=== PATIENT | female | born 2000 | race Caucasian/White ===

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

== ENCOUNTER 2019-02-05 10:16 | Emergency (ER) | payer OTHER ==
[2019-02-05 10:20] VITALS: RESP 16; TEMP 98.8
--- NOTE | 2019-02-05 10:49 | ED ---
Dizziness HPI - General Chief Complaint: Syncope Stated Complaint: Syncope, Anxiety Time Seen by Provider: 02/05/19 10:19 Source: patient, EMS, RN notes reviewed Mode of arrival: EMS Limitations: no limitations - History of Present Illness Initial Comments: This is 18-year-old female with a history of seizures as well and a fear of needles who apparently has carpal tunnel syndrome in the left wrist and was about getting an injection which she requested when she suddenly became pale unresponsive and almost passed out. She was evaluated by paramedics she has sinus rhythm on the monitor glucose 118 no focal deficits noted no tremors no shaking. His slow responsiveness. Due to the patient's fear of needles no IV was started. The modifying factors this time MD Complaint: dizziness, lightheadedness, near syncope - Related Data Home Medications Medication Instructions Recorded Confirmed Naproxen 500 mg PO BID PRN 05/20/18 02/05/19 Omeprazole 20 mg PO DAILY 05/20/18 02/05/19 Loratadine [Claritin] 10 mg PO DAILY 09/11/18 02/05/19 Medroxyprogesterone Acetate 150 mg IM Q84D 09/11/18 02/05/19 [Depo-Provera] ALPRAZolam [Xanax] 0.125 - 0.25 mg PO DAILY PRN 02/05/19 02/05/19 Cholecalciferol [Vitamin D3 (25 5,000 unit PO DAILY 02/05/19 02/05/19 Mcg = 1000 Iu)] Levothyroxine Sodium [Synthroid] 25 mcg PO DAILY 02/05/19 02/05/19 Multivitamins, Thera [Multivitamin 1 tab PO DAILY 02/05/19 02/05/19 (formulary)] cloNIDine HCL [Catapres] 0.1 mg PO DAILY 02/05/19 02/05/19 metFORMIN HCL [Glucophage] 500 mg PO BID 02/05/19 02/05/19 Allergies Allergy/AdvReac Type Severity Reaction Status Date / Time cyclobenzaprine Allergy Unknown Anaphylaxis Verified 02/05/19 10:31 [From Flexeril] amphetamine aspartate Allergy Rash/Hives Verified 02/05/19 10:31 [From Adderall] amphetamine sulfate Allergy Rash/Hives Verified 02/05/19 10:31 [From Adderall] dextroamphetamine saccharate Allergy Rash/Hives Verified 02/05/19 10:31 [From Adderall] dextroamphetamine sulfate Allergy Rash/Hives Verified 02/05/19 10:31 [From Adderall] methylphenidate HCl Allergy Rash/Hives Verified 02/05/19 10:31 [From Concerta] Poultry [[place]] Allergy Rash/Hives Verified 02/05/19 10:31 Review of Systems ROS Statement: Those systems with pertinent positive or pertinent negative responses have been documented in the HPI. ROS Other: All systems not noted in ROS Statement are negative. Past Medical History Past Medical History: Asthma, Seizure Disorder Additional Past Medical History / Comment(s): shoulder crepitus, asthma, History of Any Multi-Drug Resistant Organisms: None Reported Past Surgical History: No Surgical Hx Reported Past Anesthesia/Blood Transfusion Reactions: No Reported Reaction Additional Past Anesthesia/Blood Transfusion Reaction / Comment(s): pt stated has never had gen aa Past Psychological History: ADD/ADHD, Anxiety, Bipolar, Depression, PTSD Smoking Status: Former smoker Past Alcohol Use History: None Reported Past Drug Use History: None Reported - Past Family History Mother Additional Family Medical History / Comment(s): bipolar,depression ptsd Father History Unknown: Yes Additional Family Medical History / Comment(s): pt stated that "her grandfather was the [place] prostitute killer" General Exam - General Exam Comments Initial Comments: Patient is a well-developed well-nourished awake alert but somewhat slow to respond female Limitations: no limitations General appearance: alert, obese Head exam: Present: atraumatic, normocephalic, normal inspection Eye exam: Present: normal appearance, PERRL, EOMI. Absent: scleral icterus, conjunctival injection, periorbital swelling ENT exam: Present: normal exam, mucous membranes moist Neck exam: Present: normal inspection. Absent: tenderness, meningismus, lymphadenopathy Respiratory exam: Present: normal lung sounds bilaterally. Absent: respiratory distress, wheezes, rales, rhonchi, stridor Cardiovascular Exam: Present: regular rate, normal rhythm, normal heart sounds. Absent: systolic murmur, diastolic murmur, rubs, gallop, clicks GI/Abdominal exam: Present: soft, normal bowel sounds. Absent: distended, tenderness, guarding, rebound, rigid Extremities exam: Present: normal inspection, full ROM, normal capillary refill, other (Was a Band-Aid over the left medial volar wrist). Absent: tenderness, pedal edema, joint swelling, calf tenderness Back exam: Present: normal inspection Neurological exam: Present: alert, oriented X3, CN II-XII intact Psychiatric exam: Present: normal affect, normal mood Skin exam: Present: warm, dry, intact, normal color. Absent: rash Course Vital Signs 02/05/19 10:17 Temperature 98.8 F Pulse Rate 92 Respiratory 16 Rate Blood Pressure 135/85 O2 Sat by Pulse 99 Oximetry EKG Findings - EKG Results: EKG: interpreted by BAYRON, sinus rhythm (Neuro sinus rhythm of 81. We'll 170 QRS duration 80 QT since QTC 348/404 artifact noted no acute ST-T wave changes) Medical Decision Making - Medical Decision Making Reevaluation patient is awake alert oriented 3 in no distress the presentation is cystoscopy with a vasovagal episode. Disposition Clinical Impression: Vasovagal near syncope Disposition: HOME SELF-CARE Condition: Good Instructions (If sedation given, give patient instructions): Near Syncope (ED) Is patient prescribed a controlled substance at d/c from ED?: No Referrals: Sofi Pollard MD [Primary Care Provider] - 1-2 days
[2019-02-05 12:13] VITALS: BP 125/67; PULSE 80
== END 2019-02-05 12:12 | disposition home or self-care (01) ==
LOC: EC 10:16
DX: R55 Syncope and collapse (principal); F41.9 Anxiety disorder, unspecified; F90.9 Attention-deficit hyperactivity disorder, unspecified type; Z87.891 Personal history of nicotine dependence; Z79.84 Long term (current) use of oral hypoglycemic drugs; Z79.890 Hormone replacement therapy; Z79.899 Other long term (current) drug therapy; Z88.8 Allergy status to other drugs, medicaments and biological substances; Z91.018 Allergy to other foods
CPT/HCPCS: 93005; 99284

== ENCOUNTER → 2019-02-06 | Outpatient (CLI) | payer OTHER ==
--- NOTE | 2019-03-08 10:37 | HM ---
HOLTER MONITOR REPORT 24 HOUR HOLTER: No diary was provided. Predominant rhythm is sinus with a heart rate ranging from 46 to 170 beats per minute with average heart rate of 84 beats per minute. Rare ventricular and supraventricular ectopic beats were noted. Sinus tachycardia was noted. There was no evidence of any significant pauses. Sinus rhythm and sinus tachycardia appears to be the predominant rhythm with some sinus arrhythmia. Bradycardia was noted mostly at night. There was no evidence of any significant abnormal rhythms and no diary was provided. FINAL IMPRESSION: Predominant rhythm is sinus with average heart rate of 87 beats per minute with sinus arrhythmia, rare premature atrial contractions and premature ventricular contractions without any significant runs of SVT, VT or bradyarrhythmia. MMODL / IJN: [id number] /
== END | disposition home or self-care (01) ==
LOC: RADECHMAIN 12:16
PROVIDERS: ATTEND Internal Medicine
DX: R00.2 Palpitations (principal)
CPT/HCPCS: 93225; 93226

== ENCOUNTER → 2019-03-05 | Outpatient (CLI) | payer OTHER ==
[2019-03-05 18:41] LABS: ALT 35 U/L (8-44); AST 18 U/L (13-35); Albumin/Globulin Ratio 2.05 (1.60-3.17); Alkaline Phosphatase 84 U/L (41-126); Bilirubin, Conjugated <0.20 mg/dL (0.20-0.40); Total Bilirubin 0.2 mg/dL (0.2-1.2); Total Protein 6.1 g/dL (6.2-8.2)
[2019-03-05 20:17] LABS: Hepatitis A Antibody IgM Non-Reactive (Non-Reactive); Hepatitis B Core IgM Non-Reactive (Non-Reactive); Hepatitis B Surface Antigen Non-Reactive (Non-Reactive); Hepatitis C IgG Antibody Non-Reactive (Non-Reactive)
== END | disposition home or self-care (01) ==
LOC: LABWHC1 12:28
PROVIDERS: ATTEND Internal Medicine
DX: E11.9 Type 2 diabetes mellitus without complications (principal); E66.9 Obesity, unspecified; R74.0 Nonspecific elevation of levels of transaminase and lactic acid dehydrogenase [LDH]
CPT/HCPCS: 36415; 80074; 80076

== ENCOUNTER 2019-03-14 18:59 | Emergency (ER) | payer OTHER ==
[2019-03-14] MEDS ORDERED: SODIUM CHLORIDE 0.9% 1,000 ML IV STA (19:37)
--- NOTE | 2019-03-14 19:44 | ED ---
General Adult HPI - General Chief complaint: Headache Stated complaint: headache, dizziness Time Seen by Provider: 03/14/19 19:28 Source: patient, EMS, RN notes reviewed Mode of arrival: EMS - History of Present Illness Initial comments: 18-year-old female presents to the emergency department for a chief complaint of headache. Patient states that she hit her head against a wall today while walking. States that about an hour afterward she started to have thoughts of her PTSD inserted of a headache. States she has a history of migraines. Patient is unsure whether the pain is a hitting her head or migraine. Patient states the pain was making her suicidal. States she has baseline suicidal and does admit to suicidal ideation at this time. Denying a plan.Patient has no other complaints at this time including shortness of breath, chest pain, abdominal pain, nausea or vomiting, or visual changes. - Related Data Home Medications Medication Instructions Recorded Confirmed Naproxen 500 mg PO BID PRN 05/20/18 02/05/19 Omeprazole 20 mg PO DAILY 05/20/18 02/05/19 Loratadine [Claritin] 10 mg PO DAILY 09/11/18 02/05/19 Medroxyprogesterone Acetate 150 mg IM Q84D 09/11/18 02/05/19 [Depo-Provera] ALPRAZolam [Xanax] 0.125 - 0.25 mg PO DAILY PRN 02/05/19 02/05/19 Cholecalciferol [Vitamin D3 (25 5,000 unit PO DAILY 02/05/19 02/05/19 Mcg = 1000 Iu)] Levothyroxine Sodium [Synthroid] 25 mcg PO DAILY 02/05/19 02/05/19 Multivitamins, Thera [Multivitamin 1 tab PO DAILY 02/05/19 02/05/19 (formulary)] cloNIDine HCL [Catapres] 0.1 mg PO DAILY 02/05/19 02/05/19 metFORMIN HCL [Glucophage] 500 mg PO BID 02/05/19 02/05/19 Allergies Allergy/AdvReac Type Severity Reaction Status Date / Time cyclobenzaprine Allergy Unknown Anaphylaxis Verified 02/05/19 10:31 [From Flexeril] amphetamine aspartate Allergy Rash/Hives Verified 02/05/19 10:31 [From Adderall] amphetamine sulfate Allergy Rash/Hives Verified 02/05/19 10:31 [From Adderall] dextroamphetamine saccharate Allergy Rash/Hives Verified 02/05/19 10:31 [From Adderall] dextroamphetamine sulfate Allergy Rash/Hives Verified 02/05/19 10:31 [From Adderall] methylphenidate HCl Allergy Rash/Hives Verified 02/05/19 10:31 [From Concerta] Poultry [[place]] Allergy Rash/Hives Verified 02/05/19 10:31 Review of Systems ROS Statement: Those systems with pertinent positive or pertinent negative responses have been documented in the HPI. ROS Other: All systems not noted in ROS Statement are negative. Past Medical History Past Medical History: Asthma, Seizure Disorder Additional Past Medical History / Comment(s): shoulder crepitus, asthma, History of Any Multi-Drug Resistant Organisms: None Reported Past Surgical History: No Surgical Hx Reported Past Anesthesia/Blood Transfusion Reactions: No Reported Reaction Additional Past Anesthesia/Blood Transfusion Reaction / Comment(s): pt stated has never had gen aa Past Psychological History: ADD/ADHD, Anxiety, Bipolar, Depression, PTSD Smoking Status: Former smoker Past Alcohol Use History: None Reported Past Drug Use History: None Reported - Past Family History Mother Additional Family Medical History / Comment(s): bipolar,depression ptsd Father History Unknown: Yes Additional Family Medical History / Comment(s): pt stated that "her grandfather was the [place] prostitute killer" General Exam General appearance: alert, in no apparent distress Head exam: Present: atraumatic, normocephalic, normal inspection Eye exam: Present: normal appearance, PERRL, EOMI. Absent: scleral icterus, conjunctival injection, periorbital swelling ENT exam: Present: normal exam, normal oropharynx, mucous membranes moist, TM's normal bilaterally, normal external ear exam Neck exam: Present: normal inspection, full ROM. Absent: tenderness, meningi smus Respiratory exam: Present: normal lung sounds bilaterally. Absent: respiratory distress, wheezes, rales, rhonchi, stridor Cardiovascular Exam: Present: regular rate, normal rhythm, normal heart sounds. Absent: systolic murmur, diastolic murmur, rubs, gallop, clicks Course Vital Signs 03/14/19 19:37 Temperature 98.2 F Pulse Rate 94 Respiratory 16 Rate Blood Pressure 141/81 O2 Sat by Pulse 98 Oximetry Medical Decision Making - Medical Decision Making Patient presents for headache after hitting her head against a wall. No evidence of trauma. Patient also has a history of migraines. No fevers or neck stiffness. CT brain was obtained given history of, which shows no acute cranial process. She was given migraine cocktail and had significant improvement in pain. Lab work was also obtained as patient did feel lightheaded prior to this. CBC does show white blood cell count of 18.2. This is likely reactive as urine does not show any sign of Evidence of infection and chest x- ray is negative. She was also suicidal. She was evaluated by EPS. Denying any suicidal thoughts at this time. Patient stable for discharge. Will follow up with primary care in 1-2 days. - Lab Data Result diagrams: 03/14/19 19:55 03/14/19 19:55 Lab Results 03/14/19 03/14/19 03/14/19 Range/Units 19:55 19:55 19:55 WBC 18.5 H (4.0-11.0) k/uL RBC 4.58 (3.80-5.40) m/uL Hgb 12.8 (11.4-16.0) gm/dL Hct 38.7 (34.0-46.0) % MCV 84.5 (80.0-100.0) fL MCH 27.8 (25.0-35.0) pg MCHC 32.9 (31.0-37.0) g/dL RDW 14.7 (11.5-15.5) % Plt Count 323 (150-450) k/uL Neutrophils % 82 % Lymphocytes % 12 % Monocytes % 4 % Eosinophils % 1 % Basophils % 0 % Neutrophils # 15.2 H (1.3-7.7) k/uL Lymphocytes # 2.2 (1.0-4.8) k/uL Monocytes # 0.7 (0-1.0) k/uL Eosinophils # 0.2 (0-0.7) k/uL Basophils # 0.1 (0-0.2) k/uL Sodium 139 (137-145) mmol/L Potassium 4.0 (3.5-5.1) mmol/L Chloride 105 (98-107) mmol/L Carbon Dioxide 25 (22-30) mmol/L Anion Gap 9 mmol/L BUN 10 (7-17) mg/dL Creatinine 0.66 (0.52-1.04) mg/dL Est GFR (CKD-EPI)AfAm >90 (>60 ml/min/1.73 sqM) Est GFR (CKD-EPI)NonAf >90 (>60 ml/min/1.73 sqM) Glucose 102 H (74-99) mg/dL Calcium 10.0 (8.4-10.2) mg/dL Total Bilirubin 0.1 L (0.2-1.3) mg/dL AST 20 (14-36) U/L ALT 40 (9-52) U/L Alkaline Phosphatase 91 (38-126) U/L Total Protein 7.4 (6.3-8.2) g/dL Albumin 4.3 (3.5-5.0) g/dL Urine Color Yellow Urine Appearance Cloudy H (Clear) Urine pH 5.5 (5.0-8.0) Ur Specific [place] 1.017 (1.001-1.035) Urine Protein Negative (Negative) Urine Glucose (UA) Negative (Negative) Urine Ketones Negative (Negative) Urine Blood Moderate H (Negative) Urine Nitrite Negative (Negative) Urine Bilirubin Negative (Negative) Urine Urobilinogen <2.0 (<2.0) mg/dL Ur Leukocyte Esterase Small H (Negative) Urine RBC 11 H (0-5) /hpf Urine WBC 6 H (0-5) /hpf Ur Squamous Epith Cells 3 (0-4) /hpf Urine Bacteria Rare H (None) /hpf Hyaline Casts 1 (0-2) /lpf Urine Mucus Rare H (None) /hpf Urine HCG, Qual (Not Detectd) Urine Opiates Screen Not Detected (NotDetected) Ur Oxycodone Screen Not Detected (NotDetected) Urine Methadone Screen Not Detected (NotDetected) Ur Propoxyphene Screen Not Detected (NotDetected) Ur Barbiturates Screen Not Detected (NotDetected) U Tricyclic Antidepress Not Detected (NotDetected) Ur Phencyclidine Scrn Not Detected (NotDetected) Ur Amphetamines Screen Not Detected (NotDetected) U Methamphetamines Scrn Not Detected (NotDetected) U Benzodiazepines Scrn Not Detected (NotDetected) Urine Cocaine Screen Not Detected (NotDetected) U Marijuana (THC) Screen Not Detected (NotDetected) 03/14/19 Range/Units 19:55 WBC (4.0-11.0) k/uL RBC (3.80-5.40) m/uL Hgb (11.4-16.0) gm/dL Hct (34.0-46.0) % MCV (80.0-100.0) fL MCH (25.0-35.0) pg MCHC (31.0-37.0) g/dL RDW (11.5-15.5) % Plt Count (150-450) k/uL Neutrophils % % Lymphocytes % % Monocytes % % Eosinophils % % Basophils % % Neutrophils # (1.3-7.7) k/uL Lymphocytes # (1.0-4.8) k/uL Monocytes # (0-1.0) k/uL Eosinophils # (0-0.7) k/uL Basophils # (0-0.2) k/uL Sodium (137-145) mmol/L Potassium (3.5-5.1) mmol/L Chloride (98-107) mmol/L Carbon Dioxide (22-30) mmol/L Anion Gap mmol/L BUN (7-17) mg/dL Creatinine (0.52-1.04) mg/dL Est GFR (CKD-EPI)AfAm (>60 ml/min/1.73 sqM) Est GFR (CKD-EPI)NonAf (>60 ml/min/1.73 sqM) Glucose (74-99) mg/dL Calcium (8.4-10.2) mg/dL Total Bilirubin (0.2-1.3) mg/dL AST (14-36) U/L ALT (9-52) U/L Alkaline Phosphatase (38-126) U/L Total Protein (6.3-8.2) g/dL Albumin (3.5-5.0) g/dL Urine Color Urine Appearance (Clear) Urine pH (5.0-8.0) Ur Specific [place] (1.001-1.035) Urine Protein (Negative) Urine Glucose (UA) (Negative) Urine Ketones (Negative) Urine Blood (Negative) Urine Nitrite (Negative) Urine Bilirubin (Negative) Urine Urobilinogen (<2.0) mg/dL Ur Leukocyte Esterase (Negative) Urine RBC (0-5) /hpf Urine WBC (0-5) /hpf Ur Squamous Epith Cells (0-4) /hpf Urine Bacteria (None) /hpf Hyaline Casts (0-2) /lpf Urine Mucus (None) /hpf Urine HCG, Qual Not Detected (Not Detectd) Urine Opiates Screen (NotDetected) Ur Oxycodone Screen (NotDetected) Urine Methadone Screen (NotDetected) Ur Propoxyphene Screen (NotDetected) Ur Barbiturates Screen (NotDetected) U Tricyclic Antidepress (NotDetected) Ur Phencyclidine Scrn (NotDetected) Ur Amphetamines Screen (NotDetected) U Methamphetamines Scrn (NotDetected) U Benzodiazepines Scrn (NotDetected) Urine Cocaine Screen (NotDetected) U Marijuana (THC) Screen (NotDetected) Disposition Clinical Impression: Depression, Headache Disposition: HOME SELF-CARE Condition: Good Instructions (If sedation given, give patient instructions): Acute Headache (ED) Additional Instructions: Please follow up with primary care in 1-2 days as well as referrals given. Return to the emergency department if you have any worsening symptoms. Is patient prescribed a controlled substance at d/c from ED?: No Referrals: Sofi Pollard MD [Primary Care Provider] - 1-2 days Time of Disposition: 01:44
[2019-03-14 20:09] LABS: Basophils # (A) 0.1 k/uL (0-0.2); Basophils % (A) 0 %; Eosinophils # (A) 0.2 k/uL (0-0.7); Eosinophils % (A) 1 %; HCT 38.7 % (34.0-46.0); HGB 12.8 gm/dL (11.4-16.0); Lymphocytes # (A) 2.2 k/uL (1.0-4.8); Lymphocytes % (A) 12 %; MCH 27.8 pg (25.0-35.0); MCHC 32.9 g/dL (31.0-37.0); MCV 84.5 fL (80.0-100.0); Mean Platelet Volume 6.1; Monocytes # (A) 0.7 k/uL (0-1.0); Monocytes % (A) 4 %; Neutrophils # (A) 15.2 k/uL (1.3-7.7); Neutrophils % (A) 82 %; Platelet Count 323 k/uL (150-450); RBC 4.58 m/uL (3.80-5.40); RDW 14.7 % (11.5-15.5); WBC 18.5 k/uL (4.0-11.0)
[2019-03-14 20:10] LABS: Appearance,Urine Cloudy (Clear); Bacteria,Urine Rare /hpf; Bilirubin,Urine Negative (Negative); Blood,Urine Moderate (Negative); Color,Urine Yellow; Glucose,Urine (UA) Negative (Negative); Hyaline Casts,Urine 1 /lpf (0-2); Ketones,Urine Negative (Negative); Leukocyte Esterase,Urine Small (Negative); Mucus,Urine Rare /hpf; Nitrite,Urine Negative (Negative); PH, Urine 5.5 (5.0-8.0); Protein,Urine Negative (Negative); RBC,Urine 11 /hpf (0-5); Specific Gravity,Urine 1.017 (1.001-1.035); Squamous Epithelial Cell,Urine 3 /hpf (0-4); Urobilinogen,Urine <2.0 mg/dL (<2.0); WBC,Urine 6 /hpf (0-5)
[2019-03-14 20:18] LABS: ALT 40 U/L (9-52); AST 20 U/L (14-36); African American GFR (CKD) >90 (>60 ml/min/1.73 sqM); Albumin 4.3 g/dL (3.5-5.0); Alkaline Phosphatase 91 U/L (38-126); Anion Gap 9 mmol/L; Blood Urea Nitrogen 10 mg/dL (7-17); Carbon Dioxide 25 mmol/L (22-30); Chloride 105 mmol/L (98-107); Glucose 102 mg/dL (74-99); Sodium 139 mmol/L (137-145); Total Bilirubin 0.1 mg/dL (0.2-1.3); Total Protein 7.4 g/dL (6.3-8.2)
[2019-03-14 20:24] LABS: Amphetamine Screen,Urine Not Detected (NotDetected); Benzodiazepines Screen,Urine Not Detected (NotDetected); Cocaine Screen,Urine Not Detected (NotDetected); Opiate Screen,Urine Not Detected (NotDetected); Phencyclidine Screen,Urine Not Detected (NotDetected); Urn Cannabinoid Scrn Not Detected (NotDetected)
[2019-03-14 20:25] LABS: Barbiturate Screen,Urine Not Detected (NotDetected); Methadone Screen, Urine Not Detected (NotDetected); Oxycodone Screen, Urine Not Detected (NotDetected); Tricyclic Antidepressant,Urine Not Detected (NotDetected)
--- NOTE | 2019-03-14 20:41 | CT ---
EXAMINATION TYPE: CT brain wo con DATE OF EXAM: 03/14/2019 COMPARISON: 05/31/2018 INDICATION: Headache since this afternoon. Pt states she has hx of migraines. DLP: 1055.4 mGycm, Automated exposure control for dose reduction was used. CONTRAST: None CT of the brain is performed utilizing 3 mm thick sections through the posterior fossa and 3 mm thick sections through the remaining calvarium. Study is performed within 24 hours of arrival to the hosp [facility]. No abnormal hyperdensity is present to suggest an acute intracranial hemorrhage. No mass lesion is evident. No acute infarcts are evident. Ventricles and sulci are appropriate for the patient age. Paranasal sinuses and mastoid air cells within the [id number] are clear. IMPRESSIONS: 1. No acute intracranial process.
[2019-03-14] MEDS ORDERED: KETOROLAC 30 MG/ML 1 ML VIAL IVP STA (20:45)
[2019-03-14] MEDS ORDERED: diphenhydrAMINE 50 MG/ML 1 ML VIAL IVP STA (20:45)
[2019-03-14] MEDS ORDERED: METOCLOPRAMIDE 5 MG/ML 2 ML VIAL IVP STA (20:45)
--- NOTE | 2019-03-14 21:25 | XR ---
EXAMINATION TYPE: XR chest 2V DATE OF EXAM: 03/14/2019 COMPARISON: 09/11/2018 INDICATION: Pneumonia TECHNIQUE: Frontal and lateral views of the chest are obtained. FINDINGS: The heart size is normal. The pulmonary vasculature is normal. The lungs are clear. IMPRESSION: 1. No acute pulmonary process.
[2019-03-15 01:48] VITALS: BP 136/78; PULSE 86; RESP 18; TEMP 97.3
== END 2019-03-15 01:48 | disposition home or self-care (01) ==
LOC: EC 18:59
DX: F32.9 Major depressive disorder, single episode, unspecified (principal); G43.909 Migraine, unspecified, not intractable, without status migrainosus; F41.9 Anxiety disorder, unspecified; Z79.890 Hormone replacement therapy; Z79.84 Long term (current) use of oral hypoglycemic drugs; Z79.899 Other long term (current) drug therapy; Z88.8 Allergy status to other drugs, medicaments and biological substances; Z91.018 Allergy to other foods; Z87.891 Personal history of nicotine dependence
CPT/HCPCS: 82075; 36415; 80053; 85025; 81001; 81025; 80306; 71046; 70450; 99284; 96374; 96375 ×2; 96361; J1200; J2765; J1885

== ENCOUNTER 2019-05-10 12:20 | Emergency (ER) | payer OTHER ==
[2019-05-10] MEDS ORDERED: SODIUM CHLORIDE 0.9% 1,000 ML IV STA ×2 (12:36)
--- NOTE | 2019-05-10 12:42 | ED ---
Syncope HPI - General Stated Complaint: syncope Time Seen by Provider: 05/10/19 12:20 Source: patient, EMS, RN notes reviewed Mode of arrival: EMS - History of Present Illness Initial Comments: This is a 18-year-old female with a history of depression and anxiety who was giving plasma today and afterwards felt lightheaded and dizzy and passed out. She is a she did sit down and woke up on the floor she denies any pain no head neck or back pain. She does states she had prior episodes of her sent here via plasma. She does states she try to eat and drink a lot prior to the donation. She denies any fevers chills nausea vomiting sweats. No other modifying factors she states she feels better at this time. She states she was diagnosed at one time with having low being prediabetic. He currently is on control. Complaint: loss of consciousness - Related Data Home Medications Medication Instructions Recorded Confirmed Naproxen 500 mg PO BID PRN 05/20/18 05/10/19 ALPRAZolam [Xanax] 0.5 mg PO DAILY PRN 05/10/19 05/10/19 Metoprolol Succinate (ER) [Toprol 25 mg PO DAILY 05/10/19 05/10/19 Xl] Allergies Allergy/AdvReac Type Severity Reaction Status Date / Time cyclobenzaprine Allergy Unknown Anaphylaxis Verified 05/10/19 12:44 [From Flexeril] amphetamine aspartate Allergy Rash/Hives Verified 05/10/19 12:44 [From Adderall] amphetamine sulfate Allergy Rash/Hives Verified 05/10/19 12:44 [From Adderall] dextroamphetamine saccharate Allergy Rash/Hives Verified 05/10/19 12:44 [From Adderall] dextroamphetamine sulfate Allergy Rash/Hives Verified 05/10/19 12:44 [From Adderall] methylphenidate HCl Allergy Rash/Hives Verified 05/10/19 12:44 [From Concerta] Poultry [[place]] Allergy Rash/Hives Verified 05/10/19 12:44 Review of Systems ROS Statement: Those systems with pertinent positive or pertinent negative responses have been documented in the HPI. ROS Other: All systems not noted in ROS Statement are negative. Past Medical History Past Medical History: Asthma, Seizure Disorder Additional Past Medical History / Comment(s): shoulder crepitus, asthma, History of Any Multi-Drug Resistant Organisms: None Reported Past Surgical History: No Surgical Hx Reported Past Anesthesia/Blood Transfusion Reactions: No Reported Reaction Additional Past Anesthesia/Blood Transfusion Reaction / Comment(s): pt stated has never had gen aa Past Psychological History: ADD/ADHD, Anxiety, Bipolar, Depression, PTSD Smoking Status: Former smoker Past Alcohol Use History: None Reported Past Drug Use History: None Reported - Past Family History Mother Additional Family Medical History / Comment(s): bipolar,depression ptsd Father History Unknown: Yes Additional Family Medical History / Comment(s): pt stated that "her grandfather was the [place] prostitute killer" General Exam - General Exam Comments Initial Comments: This is a well-developed well-nourished awake alert oriented 3 female General appearance: alert, in no apparent distress Head exam: Present: atraumatic, normocephalic, normal inspection Eye exam: Present: normal appearance, PERRL, EOMI. Absent: scleral icterus, conjunctival injection, periorbital swelling ENT exam: Present: normal exam, mucous membranes moist Neck exam: Present: normal inspection, full ROM, other (ALLERGY or bruits). Absent: tenderness, meningismus, lymphadenopathy Respiratory exam: Present: normal lung sounds bilaterally. Absent: respiratory distress, wheezes, rales, rhonchi, stridor Cardiovascular Exam: Present: regular rate, normal rhythm, normal heart sounds. Absent: systolic murmur, diastolic murmur, rubs, gallop, clicks GI/Abdominal exam: Present: soft, normal bowel sounds. Absent: distended, tenderness, guarding, rebound, rigid Extremities exam: Present: normal inspection, full ROM, normal capillary refill. Absent: tenderness, pedal edema, joint swelling, calf tenderness Back exam: Present: normal inspection Neurological exam: Present: alert, oriented X3, CN II-XII intact Psychiatric exam: Present: normal affect, normal mood Skin exam: Present: warm, dry, intact, normal color. Absent: rash Course Vital Signs 05/10/19 05/10/19 12:44 12:52 Temperature 97.9 F Pulse Rate 88 76 Respiratory 18 20 Rate Blood Pressure 90/58 109/65 O2 Sat by Pulse 97 100 Oximetry - Reevaluation(s) Reevaluation #1: 05/10/19 13:53 Reevaluation the patient she now states that she is feeling very depressed and suicidal but no particular plan is moist. She will be assessed by EPS. Medical Decision Making - Medical Decision Making Patient with medical care for EPS. Patient was seen and evaluated by the EPS staff. She is deemed to be wrist herself or anyone else at this time she'll be discharged the presentation is consistent with a vasovagal episode. - Lab Data Result diagrams: 05/10/19 13:22 05/10/19 13:22 Lab Results 05/10/19 05/10/19 05/10/19 Range/Units 13:04 13:22 13:22 WBC 16.7 H (4.0-11.0) k/uL RBC 5.04 (3.80-5.40) m/uL Hgb 14.1 (11.4-16.0) gm/dL Hct 44.1 (34.0-46.0) % MCV 87.6 (80.0-100.0) fL MCH 27.9 (25.0-35.0) pg MCHC 31.9 (31.0-37.0) g/dL RDW 14.4 (11.5-15.5) % Plt Count 331 (150-450) k/uL Neutrophils % 79 % Lymphocytes % 15 % Monocytes % 4 % Eosinophils % 1 % Basophils % 0 % Neutrophils # 13.3 H (1.3-7.7) k/uL Lymphocytes # 2.4 (1.0-4.8) k/uL Monocytes # 0.7 (0-1.0) k/uL Eosinophils # 0.1 (0-0.7) k/uL Basophils # 0.1 (0-0.2) k/uL PT (9.0-12.0) sec INR (<1.2) APTT (22.0-30.0) sec Sodium 140 (137-145) mmol/L Potassium 4.3 (3.5-5.1) mmol/L Chloride 115 H (98-107) mmol/L Carbon Dioxide 19 L (22-30) mmol/L Anion Gap 6 mmol/L BUN 8 (7-17) mg/dL Creatinine 0.72 (0.52-1.04) mg/dL Est GFR (CKD-EPI)AfAm >90 (>60 ml/min/1.73 sqM) Est GFR (CKD-EPI)NonAf >90 (>60 ml/min/1.73 sqM) Glucose 101 H (74-99) mg/dL POC Glucose (mg/dL) 112 H (75-99) mg/dL POC Glu Rn Perinatal ID [place] Calcium 8.5 (8.4-10.2) mg/dL Magnesium 1.8 (1.6-2.3) mg/dL Total Bilirubin 0.3 (0.2-1.3) mg/dL AST 26 (14-36) U/L ALT 30 (4-34) U/L Alkaline Phosphatase 60 (38-126) U/L Creatine Kinase 182 H (30-135) U/L Troponin I (0.000-0.034) ng/mL Total Protein 5.3 L (6.3-8.2) g/dL Albumin 2.9 L (3.5-5.0) g/dL TSH 4.180 (0.465-4.680) mIU/L 05/10/19 05/10/19 Range/Units 13:22 13:22 WBC (4.0-11.0) k/uL RBC (3.80-5.40) m/uL Hgb (11.4-16.0) gm/dL Hct (34.0-46.0) % MCV (80.0-100.0) fL MCH (25.0-35.0) pg MCHC (31.0-37.0) g/dL RDW (11.5-15.5) % Plt Count (150-450) k/uL Neutrophils % % Lymphocytes % % Monocytes % % Eosinophils % % Basophils % % Neutrophils # (1.3-7.7) k/uL Lymphocytes # (1.0-4.8) k/uL Monocytes # (0-1.0) k/uL Eosinophils # (0-0.7) k/uL Basophils # (0-0.2) k/uL PT 11.1 (9.0-12.0) sec INR 1.0 (<1.2) APTT 22.0 (22.0-30.0) sec Sodium (137-145) mmol/L Potassium (3.5-5.1) mmol/L Chloride (98-107) mmol/L Carbon Dioxide (22-30) mmol/L Anion Gap mmol/L BUN (7-17) mg/dL Creatinine (0.52-1.04) mg/dL Est GFR (CKD-EPI)AfAm (>60 ml/min/1.73 sqM) Est GFR (CKD-EPI)NonAf (>60 ml/min/1.73 sqM) Glucose (74-99) mg/dL POC Glucose (mg/dL) (75-99) mg/dL POC Glu Rn Perinatal ID Calcium (8.4-10.2) mg/dL Magnesium (1.6-2.3) mg/dL Total Bilirubin (0.2-1.3) mg/dL AST (14-36) U/L ALT (4-34) U/L Alkaline Phosphatase (38-126) U/L Creatine Kinase (30-135) U/L Troponin I <0.012 (0.000-0.034) ng/mL Total Protein (6.3-8.2) g/dL Albumin (3.5-5.0) g/dL TSH (0.465-4.680) mIU/L Disposition Clinical Impression: Vasovagal syncope, Depression Disposition: HOME SELF-CARE Condition: Good Instructions (If sedation given, give patient instructions): Syncope (ED), Depression (ED) Is patient prescribed a controlled substance at d/c from ED?: No Referrals: Sofi Pollard MD [Primary Care Provider] - 1-2 days
[2019-05-10 12:52] VITALS: TEMP 97.9
[2019-05-10 13:16] LABS: Glucose,Whole Blood 112 mg/dL (75-99)
[2019-05-10 13:36] VITALS: RESP 20
[2019-05-10 13:52] LABS: Basophils # (A) 0.1 k/uL (0-0.2); Basophils % (A) 0 %; Eosinophils # (A) 0.1 k/uL (0-0.7); Eosinophils % (A) 1 %; HCT 44.1 % (34.0-46.0); HGB 14.1 gm/dL (11.4-16.0); Lymphocytes # (A) 2.4 k/uL (1.0-4.8); Lymphocytes % (A) 15 %; MCH 27.9 pg (25.0-35.0); MCHC 31.9 g/dL (31.0-37.0); MCV 87.6 fL (80.0-100.0); Mean Platelet Volume 7.6; Monocytes # (A) 0.7 k/uL (0-1.0); Monocytes % (A) 4 %; Neutrophils # (A) 13.3 k/uL (1.3-7.7); Neutrophils % (A) 79 %; Platelet Count 331 k/uL (150-450); RBC 5.04 m/uL (3.80-5.40); RDW 14.4 % (11.5-15.5); WBC 16.7 k/uL (4.0-11.0)
[2019-05-10 14:00] LABS: ALT 30 U/L (4-34); AST 26 U/L (14-36); African American GFR (CKD) >90 (>60 ml/min/1.73 sqM); Albumin 2.9 g/dL (3.5-5.0); Alkaline Phosphatase 60 U/L (38-126); Anion Gap 6 mmol/L; Blood Urea Nitrogen 8 mg/dL (7-17); Calcium 8.5 mg/dL (8.4-10.2); Carbon Dioxide 19 mmol/L (22-30); Chloride 115 mmol/L (98-107); Creatine Kinase 182 U/L (30-135); Glucose 101 mg/dL (74-99); Magnesium 1.8 mg/dL (1.6-2.3); Non-African American GFR(CKD) >90 (>60 ml/min/1.73 sqM); Potassium 4.3 mmol/L (3.5-5.1); Sodium 140 mmol/L (137-145); Total Bilirubin 0.3 mg/dL (0.2-1.3); Total Protein 5.3 g/dL (6.3-8.2)
[2019-05-10 14:06] LABS: Prothrombin Time 11.1 sec (9.0-12.0)
--- NOTE | 2019-05-10 14:52 | XR ---
EXAMINATION TYPE: XR chest 2V DATE OF EXAM: 05/10/2019 COMPARISON: 03/14/2019 HISTORY: Syncope TECHNIQUE: Frontal and lateral views of the chest are obtained. FINDINGS: There is no focal air space opacity, pleural effusion, or pneumothorax seen. The cardiac silhouette size is within normal limits. The osseous structures are intact. IMPRESSION: No acute cardiopulmonary process.
[2019-05-10 16:55] VITALS: BP 110/67; PULSE 72
== END 2019-05-10 17:02 | disposition home or self-care (01) ==
LOC: EC 12:20
DX: F31.30 Bipolar disorder, current episode depressed, mild or moderate severity, unspecified (principal); R55 Syncope and collapse; Z81.8 Family history of other mental and behavioral disorders; Z87.891 Personal history of nicotine dependence; Z88.8 Allergy status to other drugs, medicaments and biological substances; Z91.018 Allergy to other foods; Z79.3 Long term (current) use of hormonal contraceptives; Z79.899 Other long term (current) drug therapy
CPT/HCPCS: 36415; 71046; 80053; 82550; 83735; 84443; 84484; 85025; 85610; 85730; 93005; 96360; 96361; 99285

== ENCOUNTER 2019-11-05 19:15 | Emergency (ER) | payer OTHER ==
[2019-11-05 19:26] VITALS: RESP 17
[2019-11-05] MEDS ORDERED: SODIUM CHLORIDE 0.9% 1,000 ML IV STA (19:56)
--- NOTE | 2019-11-05 20:04 | ED ---
General Adult HPI - General Chief complaint: Syncope Stated complaint: Syncope Time Seen by Provider: 11/05/19 19:18 Source: patient, EMS Mode of arrival: EMS Limitations: no limitations - History of Present Illness Initial comments: 19-year-old female patient presents to the emergency department today for evaluation after having 2 syncopal events. Patient states last 2-3 years she has been having stress and heat induced syncope. Her last episode was on 10/05/2019. Patient states today she went for her usual daily walk got about 10 minutes and when she started to feel stressed out and anxious. She states that she did make it home but then felt dizzy like she may pass out. States she did sit down and then she lost consciousness hitting her head on the marble table. She states that she came to, sat back up and then passed out again. Patient is unsure how long she was out for. She denies any tongue biting, loss of bowel or bladder control, or any other injuries. She states she has a very mild headache currently denies blurred or double vision. Denies any nausea or vomiting. Patient denies any recent rash, fever, chills, cough, chest pain, shortness of breath, abdominal pain, diarrhea, constipation, back pain, numbness, tingling, dizziness, weakness, hematuria, dysuria, urinary urgency, urinary frequency, visual changes, or any other complaints. - Related Data Home Medications Medication Instructions Recorded Confirmed Naproxen 500 mg PO BID PRN 05/20/18 11/05/19 ALPRAZolam [Xanax] 0.25 - 0.5 mg PO Q6H PRN 05/10/19 11/05/19 Metoprolol Succinate (ER) [Toprol 25 mg PO DAILY 05/10/19 11/05/19 Xl] Albuterol Sulfate [Ventolin HFA] 2 puff INHALATION RT-Q6H PRN 11/05/19 11/05/19 Baclofen [Lioresal] 10 mg PO BID PRN 11/05/19 11/05/19 Escitalopram [Lexapro] 20 mg PO DAILY 11/05/19 11/05/19 Ibuprofen [Motrin] 800 mg PO Q6H PRN 11/05/19 11/05/19 [place] Carbonate 600 mg PO HS 11/05/19 11/05/19 OLANZapine [ZyPREXA] 5 - 10 mg PO HS 11/05/19 11/05/19 Pantoprazole [Protonix] 40 mg PO DAILY 11/05/19 11/05/19 Allergies Allergy/AdvReac Type Severity Reaction Status Date / Time cyclobenzaprine Allergy Unknown Anaphylaxis Verified 11/05/19 20:09 [From Flexeril] amphetamine aspartate Allergy Rash/Hives Verified 11/05/19 20:09 [From Adderall] amphetamine sulfate Allergy Rash/Hives Verified 11/05/19 20:09 [From Adderall] dextroamphetamine saccharate Allergy Rash/Hives Verified 11/05/19 20:09 [From Adderall] dextroamphetamine sulfate Allergy Rash/Hives Verified 11/05/19 20:09 [From Adderall] methylphenidate HCl Allergy Rash/Hives Verified 11/05/19 20:09 [From Concerta] Poultry [[place]] Allergy Rash/Hives Verified 11/05/19 20:09 Review of Systems ROS Statement: Those systems with pertinent positive or pertinent negative responses have been documented in the HPI. ROS Other: All systems not noted in ROS Statement are negative. Past Medical History Past Medical History: Asthma, Seizure Disorder, Syncope Additional Past Medical History / Comment(s): shoulder crepitus, asthma, History of Any Multi-Drug Resistant Organisms: None Reported Past Surgical History: No Surgical Hx Reported Past Anesthesia/Blood Transfusion Reactions: No Reported Reaction Additional Past Anesthesia/Blood Transfusion Reaction / Comment(s): pt stated has never had gen aa Past Psychological History: ADD/ADHD, Anxiety, Bipolar, Depression, PTSD Smoking Status: Former smoker Past Alcohol Use History: None Reported Past Drug Use History: None Reported - Past Family History Mother Additional Family Medical History / Comment(s): bipolar,depression ptsd Father History Unknown: Yes Additional Family Medical History / Comment(s): pt stated that "her grandfather was the [place] prostitute killer" General Exam Limitations: no limitations General appearance: alert, in no apparent distress, other (This is a well- developed, well-nourished adult female patient in no acute distress. Vital signs upon presentation are temperature 98.8F, pulse 104, respirations 17, blood pressure 108/76, pulse ox 100% on room air.) Eye exam: Present: normal appearance, PERRL, EOMI. Absent: scleral icterus, conjunctival injection, periorbital swelling ENT exam: Present: normal exam, normal oropharynx, mucous membranes moist Respiratory exam: Present: normal lung sounds bilaterally. Absent: respiratory distress, wheezes, rales, rhonchi, stridor Cardiovascular Exam: Present: regular rate, normal rhythm, normal heart sounds. Absent: systolic murmur, diastolic murmur, rubs, gallop, clicks GI/Abdominal exam: Present: soft, normal bowel sounds. Absent: distended, tenderness, guarding, rebound, rigid Neurological exam: Present: alert, oriented X3, CN II-XII intact Psychiatric exam: Present: normal affect, normal mood Skin exam: Present: warm, dry, intact, normal color. Absent: rash Course Vital Signs 11/05/19 11/05/19 19:17 22:23 Temperature 98.8 F 97.8 F Pulse Rate 104 H 100 Respiratory 17 17 Rate Blood Pressure 108/76 127/81 O2 Sat by Pulse 100 99 Oximetry EKG Findings - EKG Comments: EKG Findings:: EKG obtained in 1939 shows normal sinus rhythm with sinus arrhythmia. Ventricular rate is 86, [place] interval 178, QR episcopal 86, QT 334, QTC 399. No evidence of ST elevation or depression. Medical Decision Making - Medical Decision Making 19-year-old female patient presents to the emergency department today for evaluation of syncope 2 at home. Patient states she does have a history of he and anxiety-induced syncope. Physical examination is unremarkable. Labs reviewed and are unremarkable. EKG is unremarkable. Vital signs remained stable while the patient is in the department. I did discuss findings and results with her. She was discharged follow-up with her neurologist and cardio logist. Return parameters discussed in detail. She verbalizes understanding and agrees with this plan. - Lab Data Result diagrams: 11/05/19 20:13 11/05/19 20:13 Lab Results 11/05/19 11/05/19 11/05/19 Range/Units 20:13 20:13 20:13 WBC 8.1 (4.0-11.0) k/uL RBC 4.49 (3.80-5.40) m/uL Hgb 13.0 (11.4-16.0) gm/dL Hct 40.1 (34.0-46.0) % MCV 89.3 (80.0-100.0) fL MCH 28.9 (25.0-35.0) pg MCHC 32.3 (31.0-37.0) g/dL RDW 14.0 (11.5-15.5) % Plt Count 265 (150-450) k/uL Neutrophils % 73 % Lymphocytes % 19 % Monocytes % 5 % Eosinophils % 1 % Basophils % 1 % Neutrophils # 5.9 (1.3-7.7) k/uL Lymphocytes # 1.5 (1.0-4.8) k/uL Monocytes # 0.4 (0-1.0) k/uL Eosinophils # 0.1 (0-0.7) k/uL Basophils # 0.0 (0-0.2) k/uL PT 10.4 (9.0-12.0) sec INR 1.0 (<1.2) APTT 25.1 (22.0-30.0) sec Sodium 139 (137-145) mmol/L Potassium 4.3 (3.5-5.1) mmol/L Chloride 106 (98-107) mmol/L Carbon Dioxide 24 (22-30) mmol/L Anion Gap 9 mmol/L BUN 8 (7-17) mg/dL Creatinine 0.62 (0.52-1.04) mg/dL Est GFR (CKD-EPI)AfAm >90 (>60 ml/min/1.73 sqM) Est GFR (CKD-EPI)NonAf >90 (>60 ml/min/1.73 sqM) Glucose 105 H (74-99) mg/dL Calcium 9.1 (8.4-10.2) mg/dL Magnesium 1.8 (1.6-2.3) mg/dL Total Bilirubin 0.1 L (0.2-1.3) mg/dL AST 37 H (14-36) U/L ALT 66 H (4-34) U/L Alkaline Phosphatase 91 (38-126) U/L Troponin I (0.000-0.034) ng/mL Total Protein 6.9 (6.3-8.2) g/dL Albumin 3.9 (3.5-5.0) g/dL Urine Color Urine Appearance (Clear) Urine pH (5.0-8.0) Ur Specific [place] (1.001-1.035) Urine Protein (Negative) Urine Glucose (UA) (Negative) Urine Ketones (Negative) Urine Blood (Negative) Urine Nitrite (Negative) Urine Bilirubin (Negative) Urine Urobilinogen (<2.0) mg/dL Ur Leukocyte Esterase (Negative) Urine RBC (0-5) /hpf Urine WBC (0-5) /hpf Ur Squamous Epith Cells (0-4) /hpf Urine Bacteria (None) /hpf Urine Mucus (None) /hpf 11/05/19 11/05/19 Range/Units 20:13 20:22 WBC (4.0-11.0) k/uL RBC (3.80-5.40) m/uL Hgb (11.4-16.0) gm/dL Hct (34.0-46.0) % MCV (80.0-100.0) fL MCH (25.0-35.0) pg MCHC (31.0-37.0) g/dL RDW (11.5-15.5) % Plt Count (150-450) k/uL Neutrophils % % Lymphocytes % % Monocytes % % Eosinophils % % Basophils % % Neutrophils # (1.3-7.7) k/uL Lymphocytes # (1.0-4.8) k/uL Monocytes # (0-1.0) k/uL Eosinophils # (0-0.7) k/uL Basophils # (0-0.2) k/uL PT (9.0-12.0) sec INR (<1.2) APTT (22.0-30.0) sec Sodium (137-145) mmol/L Potassium (3.5-5.1) mmol/L Chloride (98-107) mmol/L Carbon Dioxide (22-30) mmol/L Anion Gap mmol/L BUN (7-17) mg/dL Creatinine (0.52-1.04) mg/dL Est GFR (CKD-EPI)AfAm (>60 ml/min/1.73 sqM) Est GFR (CKD-EPI)NonAf (>60 ml/min/1.73 sqM) Glucose (74-99) mg/dL Calcium (8.4-10.2) mg/dL Magnesium (1.6-2.3) mg/dL Total Bilirubin (0.2-1.3) mg/dL AST (14-36) U/L ALT (4-34) U/L Alkaline Phosphatase (38-126) U/L Troponin I <0.012 (0.000-0.034) ng/mL Total Protein (6.3-8.2) g/dL Albumin (3.5-5.0) g/dL Urine Color Yellow Urine Appearance Clear (Clear) Urine pH 6.5 (5.0-8.0) Ur Specific [place] 1.024 (1.001-1.035) Urine Protein Trace H (Negative) Urine Glucose (UA) Negative (Negative) Urine Ketones Negative (Negative) Urine Blood Large H (Negative) Urine Nitrite Negative (Negative) Urine Bilirubin Negative (Negative) Urine Urobilinogen <2.0 (<2.0) mg/dL Ur Leukocyte Esterase Negative (Negative) Urine RBC >182 H (0-5) /hpf Urine WBC 1 (0-5) /hpf Ur Squamous Epith Cells 2 (0-4) /hpf Urine Bacteria Rare H (None) /hpf Urine Mucus Many H (None) /hpf - Radiology Data Radiology results: report reviewed, image reviewed Two-view x-ray of the chest is obtained. Report was reviewed in its entirety. Impression by Dr. Ashley shows normal chest. No change Disposition Clinical Impression: Syncope Disposition: HOME SELF-CARE Condition: Good Additional Instructions: Increase fluids. Follow-up through primary care physician for further evaluation as soon as possible. Return to the emergency department immediately for any new, worsening, or concerning symptoms. Is patient prescribed a controlled substance at d/c from ED?: No Referrals: Sofi Pollard MD [Primary Care Provider] - 1-2 days Time of Disposition: 21:51
[2019-11-05 20:24] LABS: Basophils % (A) 1 %; Eosinophils # (A) 0.1 k/uL (0-0.7); Eosinophils % (A) 1 %; HCT 40.1 % (34.0-46.0); Lymphocytes # (A) 1.5 k/uL (1.0-4.8); Lymphocytes % (A) 19 %; MCH 28.9 pg (25.0-35.0); MCHC 32.3 g/dL (31.0-37.0); MCV 89.3 fL (80.0-100.0); Mean Platelet Volume 8.1; Monocytes # (A) 0.4 k/uL (0-1.0); Monocytes % (A) 5 %; Neutrophils # (A) 5.9 k/uL (1.3-7.7); Neutrophils % (A) 73 %; Platelet Count 265 k/uL (150-450); RBC 4.49 m/uL (3.80-5.40); WBC 8.1 k/uL (4.0-11.0)
[2019-11-05 20:32] LABS: Partial Thromboplastin Time 25.1 sec (22.0-30.0); Prothrombin Time 10.4 sec (9.0-12.0)
[2019-11-05 20:37] LABS: ALT 66 U/L (4-34); AST 37 U/L (14-36); African American GFR (CKD) >90 (>60 ml/min/1.73 sqM); Albumin 3.9 g/dL (3.5-5.0); Alkaline Phosphatase 91 U/L (38-126); Anion Gap 9 mmol/L; Blood Urea Nitrogen 8 mg/dL (7-17); Calcium 9.1 mg/dL (8.4-10.2); Carbon Dioxide 24 mmol/L (22-30); Chloride 106 mmol/L (98-107); Glucose 105 mg/dL (74-99); Magnesium 1.8 mg/dL (1.6-2.3); Non-African American GFR(CKD) >90 (>60 ml/min/1.73 sqM); Potassium 4.3 mmol/L (3.5-5.1); Sodium 139 mmol/L (137-145); Total Bilirubin 0.1 mg/dL (0.2-1.3); Total Protein 6.9 g/dL (6.3-8.2)
[2019-11-05 20:52] LABS: Appearance,Urine Clear (Clear); Bacteria,Urine Rare /hpf; Bilirubin,Urine Negative (Negative); Blood,Urine Large (Negative); Color,Urine Yellow; Glucose,Urine (UA) Negative (Negative); Ketones,Urine Negative (Negative); Leukocyte Esterase,Urine Negative (Negative); Mucus,Urine Many /hpf; Nitrite,Urine Negative (Negative); PH, Urine 6.5 (5.0-8.0); Protein,Urine Trace (Negative); RBC,Urine >182 /hpf (0-5); Specific Gravity,Urine 1.024 (1.001-1.035); Squamous Epithelial Cell,Urine 2 /hpf (0-4); Urobilinogen,Urine <2.0 mg/dL (<2.0); WBC,Urine 1 /hpf (0-5)
--- NOTE | 2019-11-05 21:19 | XR ---
EXAMINATION TYPE: XR chest 2V DATE OF EXAM: 11/05/2019 COMPARISON: May 10, 2019 HISTORY: TECHNIQUE: 2 views FINDINGS: Heart and mediastinum are normal. Lungs are clear. Diaphragm is normal. Bony thorax appears normal. IMPRESSION: Normal chest. No change.
[2019-11-05 22:25] VITALS: BP 127/81; PULSE 100; TEMP 97.8
== END 2019-11-05 22:24 | disposition home or self-care (01) ==
LOC: EC 19:15
DX: R55 Syncope and collapse (principal); R42 Dizziness and giddiness; R51 Headache; J45.909 Unspecified asthma, uncomplicated; F31.9 Bipolar disorder, unspecified; F41.9 Anxiety disorder, unspecified; Z79.899 Other long term (current) drug therapy; Z87.891 Personal history of nicotine dependence; Z88.8 Allergy status to other drugs, medicaments and biological substances; Z91.018 Allergy to other foods; Z20.828 Contact with and (suspected) exposure to other viral communicable diseases
CPT/HCPCS: 99284; 96360; 36415; 93005; 80053; 83735; 84484; 85025; 85610; 85730; 81001; 71046; U0003

== ENCOUNTER 2019-11-22 20:07 | Emergency (ER) | payer OTHER ==
[2019-11-22 20:15] VITALS: RESP 16
[2019-11-22] MEDS ORDERED: SODIUM CHLORIDE 0.9% 1,000 ML IV STA (20:27)
[2019-11-22] MEDS ORDERED: MECLIZINE 12.5 MG TAB PO STA (20:27)
[2019-11-22] MEDS ORDERED: ONDANSETRON 4 MG/2 ML VIAL IVP STA (20:27)
--- NOTE | 2019-11-22 20:34 | ED ---
General Adult HPI - General Chief complaint: Dizziness Stated complaint: Near Syncope Time Seen by Provider: 11/22/19 20:21 Source: patient, EMS Mode of arrival: EMS Limitations: no limitations - History of Present Illness Initial comments: 19-year-old female patient presents to the emergency department today for evaluation of dizziness and weakness. Patient states that she has a history of heat and stress-induced syncope. Patient states that she was feeling very lightheaded and dizzy so she laid on the floor. Patient states that it lasted for about 5 minutes of she alerted staff at her [facility] [place] [facility] that she may be going to pass out so they called an ambulance. Patient states she generally wouldn't have called an ambulance for this. States she was having some shortness of breath and chest pain with this. States in her states that when she takes breaths she has a pain to the left side of her chest. States this has been going on on and off for quite some time now. She does have an appointment coming up with her instructor decorating on November 25. She has also been having nausea whenever she eats. States that she has been able to eat very little today. States she does see a neurologist for the syncopal episodes. She does have a service dog that alerts her and a stays near her when a syncopal episode may be coming on. She denies any fevers or chills. Denies any cough or congestion. States she is currently on her period started approximately 4 days ago. Denies chance of . Patient denies any recent rash, chest pain, diarrhea, constipation, back pain, numbness, tingling, dizziness, weakness, hematuria, dysuria, urinary urgency, urinary frequency, headache, visual changes, or any other complaints. - Related Data Home Medications Medication Instructions Recorded Confirmed Naproxen 500 mg PO BID PRN 05/20/18 11/05/19 ALPRAZolam [Xanax] 0.25 - 0.5 mg PO Q6H PRN 05/10/19 11/05/19 Metoprolol Succinate (ER) [Toprol 25 mg PO DAILY 05/10/19 11/05/19 Xl] Albuterol Sulfate [Ventolin HFA] 2 puff INHALATION RT-Q6H PRN 11/05/19 11/05/19 Baclofen [Lioresal] 10 mg PO BID PRN 11/05/19 11/05/19 Escitalopram [Lexapro] 20 mg PO DAILY 11/05/19 11/05/19 Ibuprofen [Motrin] 800 mg PO Q6H PRN 11/05/19 11/05/19 [place] Carbonate 600 mg PO HS 11/05/19 11/05/19 OLANZapine [ZyPREXA] 5 - 10 mg PO HS 11/05/19 11/05/19 Pantoprazole [Protonix] 40 mg PO DAILY 11/05/19 11/05/19 Previous Rx's Medication Instructions Recorded Ondansetron [Zofran ODT] 4 mg PO Q8HR PRN #10 tab 11/22/19 Allergies Allergy/AdvReac Type Severity Reaction Status Date / Time cyclobenzaprine Allergy Unknown Anaphylaxis Verified 11/22/19 20:16 [From Flexeril] amphetamine aspartate Allergy Rash/Hives Verified 11/22/19 20:16 [From Adderall] amphetamine sulfate Allergy Rash/Hives Verified 11/22/19 20:16 [From Adderall] dextroamphetamine saccharate Allergy Rash/Hives Verified 11/22/19 20:16 [From Adderall] dextroamphetamine sulfate Allergy Rash/Hives Verified 11/22/19 20:16 [From Adderall] methylphenidate HCl Allergy Rash/Hives Verified 11/22/19 20:16 [From Concerta] Poultry [[place]] Allergy Rash/Hives Verified 11/22/19 20:16 Review of Systems ROS Statement: Those systems with pertinent positive or pertinent negative responses have been documented in the HPI. ROS Other: All systems not noted in ROS Statement are negative. Past Medical History Past Medical History: Asthma, Seizure Disorder, Syncope Additional Past Medical History / Comment(s): shoulder crepitus, asthma, heart palpitations History of Any Multi-Drug Resistant Organisms: None Reported Past Surgical History: No Surgical Hx Reported Past Anesthesia/Blood Transfusion Reactions: No Reported Reaction Additional Past Anesthesia/Blood Transfusion Reaction / Comment(s): pt stated has never had gen aa Past Psychological History: ADD/ADHD, Anxiety, Bipolar, Depression, PTSD Smoking Status: Former smoker Past Alcohol Use History: None Reported Past Drug Use History: None Reported - Past Family History Mother Additional Family Medical History / Comment(s): bipolar,depression ptsd Father History Unknown: Yes Additional Family Medical History / Comment(s): pt stated that "her grandfather was the [place] prostitute killer" General Exam Limitations: no limitations General appearance: alert, in no apparent distress, other (This is a well- developed, well-nourished adult female patient in no acute distress. Vital signs upon presentation are temperature 98.7F, pulse 73, respirations 16, blood pressure 133/72, pulse ox 99% on room air.) Eye exam: Present: normal appearance, PERRL, EOMI. Absent: scleral icterus, conjunctival injection, periorbital swelling ENT exam: Present: normal exam, normal oropharynx, mucous membranes moist Respiratory exam: Present: normal lung sounds bilaterally. Absent: respiratory distress, wheezes, rales, rhonchi, stridor Cardiovascular Exam: Present: regular rate, normal rhythm, normal heart sounds. Absent: systolic murmur, diastolic murmur, rubs, gallop, clicks GI/Abdominal exam: Present: soft, normal bowel sounds. Absent: distended, tenderness, guarding, rebound, rigid Neurological exam: Present: alert, oriented X3, CN II-XII intact Psychiatric exam: Present: normal affect, normal mood Skin exam: Present: warm, dry, intact, normal color. Absent: rash Course Vital Signs 11/22/19 11/22/19 20:11 22:16 Temperature 98.7 F 99.6 F Pulse Rate 73 71 Respiratory 16 16 Rate Blood Pressure 133/72 124/67 O2 Sat by Pulse 99 96 Oximetry EKG Findings - EKG Comments: EKG Findings:: EKG obtained at 2033 shows normal sinus rhythm with a ventricular rate of 80, [place] interval 168, QR yazidism 76, QT 346, QTC 399. No evidence of ST elevation or depression. Medical Decision Making - Medical Decision Making 19-year-old female patient presents to the emergency department today for evaluation of dizziness and near-syncope. Patient has a history of heat and stress induced syncopal episodes. She is a service dog for this. Physical examination is unremarkable. She is neurologically intact with no focal deficits. Lungs are clear to auscultation with good air movement. EKG showed normal sinus rhythm. Chest x-ray is negative. Labs reviewed and are unremarkable. Upon reevaluation she does report feeling better. She'll be discharged follow-up with her instructor decorating that she has planned. She is instructed to follow-up with her primary care physician for recheck in 1-2 days. Return parameters were discussed in detail. She verbalizes understanding and agrees with this plan. - Lab Data Result diagrams: 11/22/19 20:34 11/22/19 20:34 Lab Results 11/22/19 11/22/19 11/22/19 Range/Units 20:34 20:34 20:34 WBC 9.6 (4.0-11.0) k/uL RBC 3.92 (3.80-5.40) m/uL Hgb 11.8 (11.4-16.0) gm/dL Hct 35.5 (34.0-46.0) % MCV 90.5 (80.0-100.0) fL MCH 30.0 (25.0-35.0) pg MCHC 33.1 (31.0-37.0) g/dL RDW 13.8 (11.5-15.5) % Plt Count 250 (150-450) k/uL Neutrophils % 69 % Lymphocytes % 22 % Monocytes % 5 % Eosinophils % 1 % Basophils % 0 % Neutrophils # 6.6 (1.3-7.7) k/uL Lymphocytes # 2.1 (1.0-4.8) k/uL Monocytes # 0.5 (0-1.0) k/uL Eosinophils # 0.1 (0-0.7) k/uL Basophils # 0.0 (0-0.2) k/uL D-Dimer (<0.60) mg/L FEU Sodium 139 (137-145) mmol/L Potassium 4.0 (3.5-5.1) mmol/L Chloride 108 H (98-107) mmol/L Carbon Dioxide 24 (22-30) mmol/L Anion Gap 7 mmol/L BUN 10 (7-17) mg/dL Creatinine 0.68 (0.52-1.04) mg/dL Est GFR (CKD-EPI)AfAm >90 (>60 ml/min/1.73 sqM) Est GFR (CKD-EPI)NonAf >90 (>60 ml/min/1.73 sqM) Glucose 101 H (74-99) mg/dL Calcium 9.2 (8.4-10.2) mg/dL Total Bilirubin 0.2 (0.2-1.3) mg/dL AST 23 (14-36) U/L ALT 34 (4-34) U/L Alkaline Phosphatase 82 (38-126) U/L Troponin I <0.012 (0.000-0.034) ng/mL Total Protein 6.5 (6.3-8.2) g/dL Albumin 3.9 (3.5-5.0) g/dL Urine Color Urine Appearance (Clear) Urine pH (5.0-8.0) Ur Specific [place] (1.001-1.035) Urine Protein (Negative) Urine Glucose (UA) (Negative) Urine Ketones (Negative) Urine Blood (Negative) Urine Nitrite (Negative) Urine Bilirubin (Negative) Urine Urobilinogen (<2.0) mg/dL Ur Leukocyte Esterase (Negative) Urine RBC (0-5) /hpf Urine WBC (0-5) /hpf Ur Squamous Epith Cells (0-4) /hpf Urine Mucus (None) /hpf Urine HCG, Qual (Not Detectd) 11/22/19 11/22/19 11/22/19 Range/Units 20:34 22:00 22:00 WBC (4.0-11.0) k/uL RBC (3.80-5.40) m/uL Hgb (11.4-16.0) gm/dL Hct (34.0-46.0) % MCV (80.0-100.0) fL MCH (25.0-35.0) pg MCHC (31.0-37.0) g/dL RDW (11.5-15.5) % Plt Count (150-450) k/uL Neutrophils % % Lymphocytes % % Monocytes % % Eosinophils % % Basophils % % Neutrophils # (1.3-7.7) k/uL Lymphocytes # (1.0-4.8) k/uL Monocytes # (0-1.0) k/uL Eosinophils # (0-0.7) k/uL Basophils # (0-0.2) k/uL D-Dimer 0.28 (<0.60) mg/L FEU Sodium (137-145) mmol/L Potassium (3.5-5.1) mmol/L Chloride (98-107) mmol/L Carbon Dioxide (22-30) mmol/L Anion Gap mmol/L BUN (7-17) mg/dL Creatinine (0.52-1.04) mg/dL Est GFR (CKD-EPI)AfAm (>60 ml/min/1.73 sqM) Est GFR (CKD-EPI)NonAf (>60 ml/min/1.73 sqM) Glucose (74-99) mg/dL Calcium (8.4-10.2) mg/dL Total Bilirubin (0.2-1.3) mg/dL AST (14-36) U/L ALT (4-34) U/L Alkaline Phosphatase (38-126) U/L Troponin I (0.000-0.034) ng/mL Total Protein (6.3-8.2) g/dL Albumin (3.5-5.0) g/dL Urine Color Yellow Urine Appearance Cloudy H (Clear) Urine pH 5.5 (5.0-8.0) Ur Specific [place] 1.029 (1.001-1.035) Urine Protein 1+ H (Negative) Urine Glucose (UA) Negative (Negative) Urine Ketones Negative (Negative) Urine Blood Large H (Negative) Urine Nitrite Negative (Negative) Urine Bilirubin Negative (Negative) Urine Urobilinogen <2.0 (<2.0) mg/dL Ur Leukocyte Esterase Small H (Negative) Urine RBC >182 H (0-5) /hpf Urine WBC 12 H (0-5) /hpf Ur Squamous Epith Cells 10 H (0-4) /hpf Urine Mucus Many H (None) /hpf Urine HCG, Qual Not Detected (Not Detectd) - Radiology Data Radiology results: report reviewed, image reviewed Two-view x-ray of the chest is obtained. Report was reviewed in its entirety. Impression by Dr. Sims shows no acute cardiopulmonary process. Disposition Clinical Impression: Dizziness, Near syncope Disposition: HOME SELF-CARE Condition: Good Instructions (If sedation given, give patient instructions): Near Syncope (ED), Dizziness (ED) Additional Instructions: Increase fluids. Rest. Follow-up with your primary care physician for recheck in 1-2 days. Follow-up with neurology and her instructor decorating as you have planned. Return to the emergency department immediately for any new, worsening, or concerning symptoms. Prescriptions: Ondansetron [Zofran ODT] 4 mg PO Q8HR PRN #10 tab PRN Reason: Nausea Is patient prescribed a controlled substance at d/c from ED?: No Referrals: Sofi Pollard MD [Primary Care Provider] - 1-2 days Time of Disposition: 22:03
[2019-11-22 20:51] LABS: Basophils % (A) 0 %; Eosinophils # (A) 0.1 k/uL (0-0.7); Eosinophils % (A) 1 %; HCT 35.5 % (34.0-46.0); HGB 11.8 gm/dL (11.4-16.0); Lymphocytes # (A) 2.1 k/uL (1.0-4.8); Lymphocytes % (A) 22 %; MCHC 33.1 g/dL (31.0-37.0); MCV 90.5 fL (80.0-100.0); Mean Platelet Volume 7.6; Monocytes # (A) 0.5 k/uL (0-1.0); Monocytes % (A) 5 %; Neutrophils # (A) 6.6 k/uL (1.3-7.7); Neutrophils % (A) 69 %; Platelet Count 250 k/uL (150-450); RBC 3.92 m/uL (3.80-5.40); RDW 13.8 % (11.5-15.5); WBC 9.6 k/uL (4.0-11.0)
[2019-11-22 20:59] LABS: Carbon Dioxide 24 mmol/L (22-30); Chloride 108 mmol/L (98-107); Glucose 101 mg/dL (74-99); Sodium 139 mmol/L (137-145)
[2019-11-22 21:00] LABS: ALT 34 U/L (4-34); AST 23 U/L (14-36); African American GFR (CKD) >90 (>60 ml/min/1.73 sqM); Albumin 3.9 g/dL (3.5-5.0); Alkaline Phosphatase 82 U/L (38-126); Anion Gap 7 mmol/L; Blood Urea Nitrogen 10 mg/dL (7-17); Calcium 9.2 mg/dL (8.4-10.2); Non-African American GFR(CKD) >90 (>60 ml/min/1.73 sqM); Total Bilirubin 0.2 mg/dL (0.2-1.3); Total Protein 6.5 g/dL (6.3-8.2)
--- NOTE | 2019-11-22 21:28 | XR ---
EXAMINATION TYPE: XR chest 2V DATE OF EXAM: 11/22/2019 COMPARISON: Prior chest x-ray 11/05/2019 HISTORY: Left-sided chest pain, shortness of breath TECHNIQUE: Frontal and lateral views of the chest are obtained. FINDINGS: There is no focal air space opacity, pleural effusion, or pneumothorax seen. The cardiac silhouette size is within normal limits. The osseous structures are intact. IMPRESSION: No acute cardiopulmonary process.
[2019-11-22 22:17] VITALS: BP 124/67; PULSE 71; TEMP 99.6
[2019-11-22 22:17] LABS: Appearance,Urine Cloudy (Clear); Bilirubin,Urine Negative (Negative); Blood,Urine Large (Negative); Color,Urine Yellow; Glucose,Urine (UA) Negative (Negative); Ketones,Urine Negative (Negative); Leukocyte Esterase,Urine Small (Negative); Mucus,Urine Many /hpf; Nitrite,Urine Negative (Negative); PH, Urine 5.5 (5.0-8.0); Protein,Urine 1+ (Negative); RBC,Urine >182 /hpf (0-5); Specific Gravity,Urine 1.029 (1.001-1.035); Squamous Epithelial Cell,Urine 10 /hpf (0-4); Urobilinogen,Urine <2.0 mg/dL (<2.0); WBC,Urine 12 /hpf (0-5)
--- NOTE | 2020-01-16 10:33 | P.CEMON ---
Event monitor description: Patient or the event monitor for a total of 11 days from 12/07/2019-12/17/2019 for a total of 197 hours and 50 minutes. She was compliant with wearing the monitor a total of 75% of the time. Summary of findings: Patient had a total of 63 triggered and automatic captured events. Patient had numerous symptoms of shortness of breath, palpitations, skipped beats, chest pain which all corresponded with normal sinus rhythm and sinus tachycardia. Patient had additional auto captured events of sinus tachycardia in the 130-150 range without any symptoms noted at that time. No significant tachycardia or bradyarrhythmias noted.
== END 2019-11-22 22:26 | disposition home or self-care (01) ==
LOC: EC 20:07
DX: R42 Dizziness and giddiness (principal); R06.02 Shortness of breath; R07.9 Chest pain, unspecified; R55 Syncope and collapse; J45.909 Unspecified asthma, uncomplicated; G40.909 Epilepsy, unspecified, not intractable, without status epilepticus; F90.9 Attention-deficit hyperactivity disorder, unspecified type; F41.9 Anxiety disorder, unspecified; F31.9 Bipolar disorder, unspecified; F43.10 Post-traumatic stress disorder, unspecified; Z79.899 Other long term (current) drug therapy; Z79.51 Long term (current) use of inhaled steroids; Z87.891 Personal history of nicotine dependence; Z88.8 Allergy status to other drugs, medicaments and biological substances; Z91.018 Allergy to other foods
CPT/HCPCS: 36415; 85379; 80053; 84484; 85025; 81001; 81025; 87086; 71046; 99284; 96374; 96361; J2405

== ENCOUNTER 2019-11-25 23:07 | Emergency (ER) | payer OTHER ==
[2019-11-25 23:11] VITALS: BP 137/76; PULSE 107; RESP 18; TEMP 99.5
[2019-11-26 00:06] LABS: Amphetamine Screen,Urine Not Detected (NotDetected); Barbiturate Screen,Urine Not Detected (NotDetected); Benzodiazepines Screen,Urine Not Detected (NotDetected); Cocaine Screen,Urine Not Detected (NotDetected); Methadone Screen, Urine Not Detected (NotDetected); Opiate Screen,Urine Not Detected (NotDetected); Oxycodone Screen, Urine Not Detected (NotDetected); Phencyclidine Screen,Urine Not Detected (NotDetected); Tricyclic Antidepressant,Urine Not Detected (NotDetected); Urn Cannabinoid Scrn Not Detected (NotDetected)
[2019-11-26] MEDS ORDERED: ALPRAZolam 0.5 MG TAB PO STA (00:40)
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
== END 2019-11-26 01:22 | disposition home or self-care (01) ==
LOC: EC 23:07
DX: F41.9 Anxiety disorder, unspecified (principal); R45.851 Suicidal ideations; F90.9 Attention-deficit hyperactivity disorder, unspecified type; F31.9 Bipolar disorder, unspecified; F43.10 Post-traumatic stress disorder, unspecified; G40.909 Epilepsy, unspecified, not intractable, without status epilepticus; J45.909 Unspecified asthma, uncomplicated; Z79.899 Other long term (current) drug therapy; Z87.891 Personal history of nicotine dependence; Z59.0 Homelessness; Z91.018 Allergy to other foods; Z88.8 Allergy status to other drugs, medicaments and biological substances
CPT/HCPCS: 80306; 81025; 82075; 99285

== ENCOUNTER 2019-12-07 00:14 | Observation (INO) | payer OTHER ==
--- NOTE | 2019-12-07 00:18 | ED ---
Syncope HPI - General Stated Complaint: Syncope Time Seen by Provider: 12/07/19 00:17 Source: RN notes reviewed, old records reviewed Limitations: no limitations - History of Present Illness Initial Comments: This is a 19-year-old female around tremors department, patient Dese for evaluation of syncope. History of multiple syncopal events multiple ER visits for syncope. No cause found. Denying any pain occasionally some headaches no chest pain no shortness of breath 1 medication she takes her psychiatric medications. No one witnessed her syncopal event tonight, denies history of seizure. No other significant issues MD Complaint: loss of consciousness, felt faint -: minutes(s) Prodromal Symptoms: none Description of Event: other (No one did witness the event) -: second(s) (Unknown) Witnessed: no Injuries Sustained Associated with Event: None Current Symptoms: back to baseline, lightheaded History: previous syncopal episode (Multiple) Context: at rest, during exertion Treatments Prior to Arrival: none - Related Data Home Medications Medication Instructions Recorded Confirmed Naproxen 500 mg PO BID PRN 05/20/18 12/07/19 ALPRAZolam [Xanax] 0.25 - 0.5 mg PO Q6H PRN 05/10/19 12/07/19 Metoprolol Succinate (ER) [Toprol 25 mg PO DAILY 05/10/19 12/07/19 XL] Albuterol Sulfate [Ventolin HFA] 2 puff INHALATION RT-QID PRN 11/05/19 12/07/19 Escitalopram [Lexapro] 20 mg PO DAILY 11/05/19 12/07/19 [place] Carbonate 600 mg PO HS 11/05/19 12/07/19 OLANZapine [ZyPREXA] 10 mg PO HS 11/05/19 12/07/19 Pantoprazole [Protonix] 40 mg PO DAILY 11/05/19 12/07/19 Previous Rx's Medication Instructions Recorded Ondansetron [Zofran ODT] 4 mg PO Q8HR PRN #10 tab 11/22/19 Allergies Allergy/AdvReac Type Severity Reaction Status Date / Time cyclobenzaprine Allergy Severe Anaphylaxis Verified 12/07/19 07:56 [From Flexeril] amphetamine aspartate Allergy Rash/Hives Verified 12/07/19 07:56 [From Adderall] amphetamine sulfate Allergy Rash/Hives Verified 12/07/19 07:56 [From Adderall] dextroamphetamine saccharate Allergy Rash/Hives Verified 12/07/19 07:56 [From Adderall] dextroamphetamine sulfate Allergy Rash/Hives Verified 12/07/19 07:56 [From Adderall] methylphenidate HCl Allergy Rash/Hives Verified 12/07/19 07:56 [From Concerta] Review of Systems ROS Statement: Those systems with pertinent positive or pertinent negative responses have been documented in the HPI. ROS Other: All systems not noted in ROS Statement are negative. Past Medical History Past Medical History: Asthma, Seizure Disorder, Syncope Additional Past Medical History / Comment(s): shoulder crepitus, asthma, heart palpitations History of Any Multi-Drug Resistant Organisms: None Reported Past Surgical History: No Surgical Hx Reported Past Anesthesia/Blood Transfusion Reactions: No Reported Reaction Additional Past Anesthesia/Blood Transfusion Reaction / Comment(s): pt stated has never had gen aa Past Psychological History: ADD/ADHD, Anxiety, Bipolar, Depression, PTSD Smoking Status: Former smoker Past Alcohol Use History: None Reported Past Drug Use History: None Reported - Past Family History Mother Additional Family Medical History / Comment(s): bipolar,depression ptsd Father History Unknown: Yes Additional Family Medical History / Comment(s): pt stated that "her grandfather was the posey prostitute killer" General Exam General appearance: alert, in no apparent distress Head exam: Present: atraumatic, normocephalic, normal inspection Eye exam: Present: normal appearance, PERRL, EOMI. Absent: scleral icterus, conjunctival injection, periorbital swelling ENT exam: Present: normal exam, mucous membranes moist Neck exam: Present: normal inspection. Absent: tenderness, meningismus, lymphadenopathy Respiratory exam: Present: normal lung sounds bilaterally. Absent: respiratory distress, wheezes, rales, rhonchi, stridor Cardiovascular Exam: Present: regular rate, normal rhythm, normal heart sounds. Absent: systolic murmur, diastolic murmur, rubs, gallop, clicks GI/Abdominal exam: Present: soft, normal bowel sounds. Absent: distended, tenderness, guarding, rebound, rigid Extremities exam: Present: normal inspection, full ROM, normal capillary refill. Absent: tenderness, pedal edema, joint swelling, calf tenderness Back exam: Present: normal inspection Neurological exam: Present: alert, oriented X3, CN II-XII intact Psychiatric exam: Present: normal affect, normal mood Skin exam: Present: warm, dry, intact, normal color. Absent: rash Course Vital Signs 12/07/19 12/07/19 00:17 02:44 Temperature 98.8 F 98.4 F Pulse Rate 99 100 Respiratory 16 18 Rate Blood Pressure 142/75 131/68 O2 Sat by Pulse 95 95 Oximetry - Reevaluation(s) Reevaluation #1: Medical records reviewed Patient states she still feels uncomfortable going home with these multiple episodes of syncope that she has occurred EKG Findings - EKG Comments: EKG Findings:: EKG is sinus a 94, [place] 174 QRS 86 QTc 422 Medical Decision Making - Medical Decision Making 19 female DF for evaluation patient Dese for evaluation regards to syncopal event. Patient has no recurrent syncope here in the ER is relatively symptomatic [place] for evaluation by cardiology regarding recurrent syncope - Lab Data Result diagrams: 12/07/19 01:19 12/07/19 01:19 Lab Results 12/07/19 12/07/19 12/07/19 Range/Units 01:19 01:19 01:19 WBC 13.2 H (4.0-11.0) k/uL RBC 4.75 (3.80-5.40) m/uL Hgb 13.6 (11.4-16.0) gm/dL Hct 42.2 (34.0-46.0) % MCV 88.9 (80.0-100.0) fL MCH 28.7 (25.0-35.0) pg MCHC 32.3 (31.0-37.0) g/dL RDW 13.5 (11.5-15.5) % Plt Count 323 (150-450) k/uL Neutrophils % 73 % Lymphocytes % 18 % Monocytes % 6 % Eosinophils % 1 % Basophils % 1 % Neutrophils # 9.6 H (1.3-7.7) k/uL Lymphocytes # 2.4 (1.0-4.8) k/uL Monocytes # 0.8 (0-1.0) k/uL Eosinophils # 0.1 (0-0.7) k/uL Basophils # 0.1 (0-0.2) k/uL PT 9.8 (9.0-12.0) sec INR 0.9 (<1.2) APTT 24.7 (22.0-30.0) sec Sodium (137-145) mmol/L Potassium (3.5-5.1) mmol/L Chloride (98-107) mmol/L Carbon Dioxide (22-30) mmol/L Anion Gap mmol/L BUN (7-17) mg/dL Creatinine (0.52-1.04) mg/dL Est GFR (CKD-EPI)AfAm (>60 ml/min/1.73 sqM) Est GFR (CKD-EPI)NonAf (>60 ml/min/1.73 sqM) Glucose (74-99) mg/dL Calcium (8.4-10.2) mg/dL Phosphorus (2.5-4.5) mg/dL Magnesium (1.6-2.3) mg/dL Total Bilirubin (0.2-1.3) mg/dL AST (14-36) U/L ALT (4-34) U/L Alkaline Phosphatase (38-126) U/L Troponin I (0.000-0.034) ng/mL NT-Pro-B Natriuret Pep pg/mL Total Protein (6.3-8.2) g/dL Albumin (3.5-5.0) g/dL TSH (0.465-4.680) mIU/L Free T4 (0.78-2.19) ng/dL Urine Color Yellow Urine Appearance Clear (Clear) Urine pH 5.5 (5.0-8.0) Ur Specific [place] 1.028 (1.001-1.035) Urine Protein Negative (Negative) Urine Glucose (UA) Negative (Negative) Urine Ketones Negative (Negative) Urine Blood Negative (Negative) Urine Nitrite Negative (Negative) Urine Bilirubin Negative (Negative) Urine Urobilinogen <2.0 (<2.0) mg/dL Ur Leukocyte Esterase Negative (Negative) Serum Alcohol mg/dL 12/07/19 12/07/19 12/07/19 Range/Units 01:19 01:19 01:19 WBC (4.0-11.0) k/uL RBC (3.80-5.40) m/uL Hgb (11.4-16.0) gm/dL Hct (34.0-46.0) % MCV (80.0-100.0) fL MCH (25.0-35.0) pg MCHC (31.0-37.0) g/dL RDW (11.5-15.5) % Plt Count (150-450) k/uL Neutrophils % % Lymphocytes % % Monocytes % % Eosinophils % % Basophils % % Neutrophils # (1.3-7.7) k/uL Lymphocytes # (1.0-4.8) k/uL Monocytes # (0-1.0) k/uL Eosinophils # (0-0.7) k/uL Basophils # (0-0.2) k/uL PT (9.0-12.0) sec INR (<1.2) APTT (22.0-30.0) sec Sodium 139 (137-145) mmol/L Potassium 4.4 (3.5-5.1) mmol/L Chloride 105 (98-107) mmol/L Carbon Dioxide 25 (22-30) mmol/L Anion Gap 9 mmol/L BUN 19 H (7-17) mg/dL Creatinine 0.75 (0.52-1.04) mg/dL Est GFR (CKD-EPI)AfAm >90 (>60 ml/min/1.73 sqM) Est GFR (CKD-EPI)NonAf >90 (>60 ml/min/1.73 sqM) Glucose 100 H (74-99) mg/dL Calcium 9.9 (8.4-10.2) mg/dL Phosphorus 4.5 (2.5-4.5) mg/dL Magnesium 2.0 (1.6-2.3) mg/dL Total Bilirubin 0.2 (0.2-1.3) mg/dL AST 26 (14-36) U/L ALT 42 H (4-34) U/L Alkaline Phosphatase 92 (38-126) U/L Troponin I <0.012 (0.000-0.034) ng/mL NT-Pro-B Natriuret Pep <11 pg/mL Total Protein 7.3 (6.3-8.2) g/dL Albumin 4.4 (3.5-5.0) g/dL TSH (0.465-4.680) mIU/L Free T4 (0.78-2.19) ng/dL Urine Color Urine Appearance (Clear) Urine pH (5.0-8.0) Ur Specific [place] (1.001-1.035) Urine Protein (Negative) Urine Glucose (UA) (Negative) Urine Ketones (Negative) Urine Blood (Negative) Urine Nitrite (Negative) Urine Bilirubin (Negative) Urine Urobilinogen (<2.0) mg/dL Ur Leukocyte Esterase (Negative) Serum Alcohol <10 mg/dL 12/07/19 Range/Units 01:19 WBC (4.0-11.0) k/uL RBC (3.80-5.40) m/uL Hgb (11.4-16.0) gm/dL Hct (34.0-46.0) % MCV (80.0-100.0) fL MCH (25.0-35.0) pg MCHC (31.0-37.0) g/dL RDW (11.5-15.5) % Plt Count (150-450) k/uL Neutrophils % % Lymphocytes % % Monocytes % % Eosinophils % % Basophils % % Neutrophils # (1.3-7.7) k/uL Lymphocytes # (1.0-4.8) k/uL Monocytes # (0-1.0) k/uL Eosinophils # (0-0.7) k/uL Basophils # (0-0.2) k/uL PT (9.0-12.0) sec INR (<1.2) APTT (22.0-30.0) sec Sodium (137-145) mmol/L Potassium (3.5-5.1) mmol/L Chloride (98-107) mmol/L Carbon Dioxide (22-30) mmol/L Anion Gap mmol/L BUN (7-17) mg/dL Creatinine (0.52-1.04) mg/dL Est GFR (CKD-EPI)AfAm (>60 ml/min/1.73 sqM) Est GFR (CKD-EPI)NonAf (>60 ml/min/1.73 sqM) Glucose (74-99) mg/dL Calcium (8.4-10.2) mg/dL Phosphorus (2.5-4.5) mg/dL Magnesium (1.6-2.3) mg/dL Total Bilirubin (0.2-1.3) mg/dL AST (14-36) U/L ALT (4-34) U/L Alkaline Phosphatase (38-126) U/L Troponin I (0.000-0.034) ng/mL NT-Pro-B Natriuret Pep pg/mL Total Protein (6.3-8.2) g/dL Albumin (3.5-5.0) g/dL TSH 5.440 H (0.465-4.680) mIU/L Free T4 0.88 (0.78-2.19) ng/dL Urine Color Urine Appearance (Clear) Urine pH (5.0-8.0) Ur Specific [place] (1.001-1.035) Urine Protein (Negative) Urine Glucose (UA) (Negative) Urine Ketones (Negative) Urine Blood (Negative) Urine Nitrite (Negative) Urine Bilirubin (Negative) Urine Urobilinogen (<2.0) mg/dL Ur Leukocyte Esterase (Negative) Serum Alcohol mg/dL Disposition Clinical Impression: Syncope, Recurrent syncope Disposition: ADMITTED IP TO THIS HOSP Condition: Stable Is patient prescribed a controlled substance at d/c from ED?: No
[2019-12-07] MEDS ORDERED: SODIUM CHLORIDE 0.9% 1,000 ML IV STA (00:22)
[2019-12-07 01:31] LABS: Basophils # (A) 0.1 k/uL (0-0.2); Basophils % (A) 1 %; Eosinophils # (A) 0.1 k/uL (0-0.7); Eosinophils % (A) 1 %; HCT 42.2 % (34.0-46.0); HGB 13.6 gm/dL (11.4-16.0); Lymphocytes # (A) 2.4 k/uL (1.0-4.8); Lymphocytes % (A) 18 %; MCH 28.7 pg (25.0-35.0); MCHC 32.3 g/dL (31.0-37.0); MCV 88.9 fL (80.0-100.0); Mean Platelet Volume 7.8; Monocytes # (A) 0.8 k/uL (0-1.0); Monocytes % (A) 6 %; Neutrophils # (A) 9.6 k/uL (1.3-7.7); Neutrophils % (A) 73 %; Platelet Count 323 k/uL (150-450); RBC 4.75 m/uL (3.80-5.40); RDW 13.5 % (11.5-15.5); WBC 13.2 k/uL (4.0-11.0)
[2019-12-07 01:34] LABS: Appearance,Urine Clear (Clear); Bilirubin,Urine Negative (Negative); Blood,Urine Negative (Negative); Color,Urine Yellow; Glucose,Urine (UA) Negative (Negative); Ketones,Urine Negative (Negative); Leukocyte Esterase,Urine Negative (Negative); Nitrite,Urine Negative (Negative); PH, Urine 5.5 (5.0-8.0); Protein,Urine Negative (Negative); Specific Gravity,Urine 1.028 (1.001-1.035); Urobilinogen,Urine <2.0 mg/dL (<2.0)
[2019-12-07 01:41] LABS: ALT 42 U/L (4-34); AST 26 U/L (14-36); African American GFR (CKD) >90 (>60 ml/min/1.73 sqM); Albumin 4.4 g/dL (3.5-5.0); Alcohol <10 mg/dL; Alkaline Phosphatase 92 U/L (38-126); Anion Gap 9 mmol/L; Blood Urea Nitrogen 19 mg/dL (7-17); Calcium 9.9 mg/dL (8.4-10.2); Carbon Dioxide 25 mmol/L (22-30); Chloride 105 mmol/L (98-107); Glucose 100 mg/dL (74-99); INR 0.9 (<1.2); Non-African American GFR(CKD) >90 (>60 ml/min/1.73 sqM); Partial Thromboplastin Time 24.7 sec (22.0-30.0); Phosphorus 4.5 mg/dL (2.5-4.5); Potassium 4.4 mmol/L (3.5-5.1); Prothrombin Time 9.8 sec (9.0-12.0); Sodium 139 mmol/L (137-145); Total Bilirubin 0.2 mg/dL (0.2-1.3); Total Protein 7.3 g/dL (6.3-8.2)
[2019-12-07] MEDS ORDERED: NITROGLYCERIN SL TABS 0.4 MG TAB SUBLINGUAL PRN (02:15)
[2019-12-07 02:46] VITALS: RESP 18
[2019-12-07 07:56] VITALS: TEMP 98.3
[2019-12-07] MEDS ORDERED: METOPROLOL SUCCINATE (ER) 25 MG TAB.ER.24H PO SCH (09:00)
--- NOTE | 2019-12-07 09:36 | P.CRDCN ---
History of Present Illness History of present illness: HISTORY OF PRESENTING ILLNESS This is a pleasant 19-year-old female past medical history significant for frequent episodes of syncope, borderline personality disorder, bipolar, dep ression, anxiety and morbid obesity. She was prescribed Toprol by her primary care physician secondary to frequent palpitations. She denies prior history of coronary artery disease and has never seen a respiratory clinician for any reason. We have been asked to see in consultation for syncope. She states yesterday at the homeless custodial she was assigned a job of cleaning the kitchen with bleach, which she claims to be allergic too. She was feeling light headed, nauseated and fatigued all day prior to having to clean. However while cleaning her symptoms exacerbated. She stopped cleaning and went up to lay down. She remembers walking up the stairs and getting into her room then calling the staff that she was lightheaded and needed EMS. There is no ER HPI for information. She states she has not had any further symptoms of dizziness or syncope since coming to the hospital. She denies chest pain, shortness of breath, dizziness or palpitations. DIAGNOSTICS EKG reveals sinus mechanism. Repeat EKG this morning reveals sinus mechanism. Telemetry tracings indicate no acute arrhythmia.. Laboratory reviewed, WBC 13.2, hemoglobin 13.6, platelets 323, sodium 139, potassium 4.4, creatinine 0.75, magnesium 2.0, cardiac enzymes negative 3, NT proBNP less than 11, TSH 5.44. Current cardiac medications include Toprol 25 mg daily. REVIEW OF SYSTEMS At the time of my exam: CONSTITUTIONAL: Denies fever or chills. CARDIOVASCULAR: Denies chest pain, shortness of breath, orthopnea, PND or palpitations. RESPIRATORY: Denies cough. GASTROINTESTINAL: Denies abdominal pain, diarrhea, constipation, nausea or vomiting. MUSCULOSKELETAL: Denies myalgias. NEUROLOGIC: Denies numbness, tingling or weakness. ENDOCRINE: Denies fatigue, weight change, polydipsia or polyurina. GENITOURINARY: Denies burning, hematuria or urgency with micturation. HEMATOLOGIC: Denies history of anemia or bleeding. PHYSICAL EXAMINATION Blood pressure 126/75 heart rate 90 afebrile and maintaining oxygen saturation on room air. CONSTITUTIONAL: No apparent distress. Obese. HEENT: Head is normocephalic. Pupils are equal, round. Sclerae anicteric. Mucous membranes of the mouth are moist. No JVD. No carotid bruit. CHEST EXAMINATION: Lungs are clear to auscultation. No chest wall tenderness is noted on palpation or with deep breathing. HEART EXAMINATION: Regular rate and rhythm. S1, S2 heard. No murmurs, gallops or rub. ABDOMEN: Soft, nontender. Positive bowel sounds. EXTREMITIES: 2+ peripheral pulses, no lower extremity edema and no calf tenderness. NEUROLOGIC EXAMINATION: Patient is awake, alert and oriented x3. ASSESSMENT Syncope, unwitnessed Morbid obesity, BMI 44 PLAN No arrhythmia noted on ed case manager since admission. Check for orthostatic changes. Obtain 2D echocardiogram and doppler study to assess cardiac structure and function. Apply event monitor for 30 days. Follow up with Dr. Orozco in the office in 2 weeks. Thank you kindly for this consultation. Nurse Practitioner note has been reviewed, I agree with a documented findings and plan of care. Patient was seen and examined. Past Medical History Past Medical History: Asthma, Seizure Disorder, Syncope Additional Past Medical History / Comment(s): shoulder crepitus, asthma, heart palpitations. hx of only one seizure in the past History of Any Multi-Drug Resistant Organisms: None Reported Past Surgical History: No Surgical Hx Reported Past Anesthesia/Blood Transfusion Reactions: No Reported Reaction Additional Past Anesthesia/Blood Transfusion Reaction / Comment(s): pt stated has never had gen aa Past Psychological History: ADD/ADHD, Anxiety, Bipolar, Depression, PTSD Additional Psychological History / Comment(s): lives in a custodial Smoking Status: Former smoker Past Alcohol Use History: None Reported Additional Past Alcohol Use History / Comment(s): started smoking 2016 quit 02-13-18(vaped) Past Drug Use History: None Reported Additional Drug Use History / Comment(s): "tired suleiman once in her life - Past Family History Mother Additional Family Medical History / Comment(s): bipolar,depression ptsd Father History Unknown: Yes Additional Family Medical History / Comment(s): pt stated that "her grandfather was the [place] prostitute killer" Medications and Allergies Home Medications Medication Instructions Recorded Confirmed Type Naproxen 500 mg PO BID PRN 05/20/18 12/07/19 History ALPRAZolam [Xanax] 0.25 - 0.5 mg PO Q6H PRN 05/10/19 12/07/19 History Metoprolol Succinate (ER) [Toprol 25 mg PO DAILY 05/10/19 12/07/19 History Xl] Albuterol Sulfate [Ventolin HFA] 2 puff INHALATION RT-QID PRN 11/05/19 12/07/19 History Escitalopram [Lexapro] 20 mg PO DAILY 11/05/19 12/07/19 History [place] Carbonate 600 mg PO HS 11/05/19 12/07/19 History OLANZapine [ZyPREXA] 10 mg PO HS 11/05/19 12/07/19 History Pantoprazole [Protonix] 40 mg PO DAILY 11/05/19 12/07/19 History Ondansetron [Zofran ODT] 4 mg PO Q8HR PRN #10 tab 11/22/19 12/07/19 Rx Allergies Allergy/AdvReac Type Severity Reaction Status Date / Time cyclobenzaprine Allergy Severe Anaphylaxis Verified 12/07/19 07:56 [From Flexeril] amphetamine aspartate Allergy Rash/Hives Verified 12/07/19 07:56 [From Adderall] amphetamine sulfate Allergy Rash/Hives Verified 12/07/19 07:56 [From Adderall] dextroamphetamine saccharate Allergy Rash/Hives Verified 12/07/19 07:56 [From Adderall] dextroamphetamine sulfate Allergy Rash/Hives Verified 12/07/19 07:56 [From Adderall] methylphenidate HCl Allergy Rash/Hives Verified 12/07/19 07:56 [From Concerta] Physical Exam Vitals: Vital Signs Temp Pulse Pulse Resp BP BP Pulse Ox 12/07/19 07:55 98.3 F 90 18 126/75 98 12/07/19 03:09 98.2 F 102 H 18 155/67 97 12/07/19 02:44 98.4 F 100 18 131/68 95 12/07/19 00:17 98.8 F 99 16 142/75 95 Intake and Output 12/06/19 12/07/19 12/07/19 22:59 06:59 14:59 Other: Voiding Method Toilet # Voids 1 Weight 123.831 kg Results 12/07/19 01:19 12/07/19 01:19 Cardiac Enzymes 12/07/19 12/07/19 12/07/19 Range/Units 01:19 01:19 04:57 AST 26 (14-36) U/L Troponin I <0.012 <0.012 (0.000-0.034) ng/mL 12/07/19 Range/Units 06:41 AST (14-36) U/L Troponin I <0.012 (0.000-0.034) ng/mL Coagulation 12/07/19 Range/Units 01:19 PT 9.8 (9.0-12.0) sec APTT 24.7 (22.0-30.0) sec CBC 12/07/19 Range/Units 01:19 WBC 13.2 H (4.0-11.0) k/uL RBC 4.75 (3.80-5.40) m/uL Hgb 13.6 (11.4-16.0) gm/dL Hct 42.2 (34.0-46.0) % Plt Count 323 (150-450) k/uL Comprehensive Metabolic Panel 12/07/19 Range/Units 01:19 Sodium 139 (137-145) mmol/L Potassium 4.4 (3.5-5.1) mmol/L Chloride 105 (98-107) mmol/L Carbon Dioxide 25 (22-30) mmol/L BUN 19 H (7-17) mg/dL Creatinine 0.75 (0.52-1.04) mg/dL Glucose 100 H (74-99) mg/dL Calcium 9.9 (8.4-10.2) mg/dL AST 26 (14-36) U/L ALT 42 H (4-34) U/L Alkaline Phosphatase 92 (38-126) U/L Total Protein 7.3 (6.3-8.2) g/dL Albumin 4.4 (3.5-5.0) g/dL Current Medications Generic Name Dose Route Start Last Admin Trade Name Freq PRN Reason Stop Dose Admin Metoprolol Succinate 25 mg 12/07/19 09:00 Toprol Xl PO DAILY OSMANI Nitroglycerin 0.4 mg 12/07/19 02:15 Nitrostat SUBLINGUAL Q5M PRN Chest Pain Intake and Output 12/06/19 12/07/19 12/07/19 22:59 06:59 14:59 Other: Voiding Method Toilet # Voids 1 Weight 123.831 kg 12/07/19 01:19 12/07/19 01:19
[2019-12-07 10:09] LABS: T4, Free (Free Thyroxine) 0.88 ng/dL (0.78-2.19)
--- NOTE | 2019-12-07 10:34 | ECHOF ---
Referral Reason:syncope MEASUREMENTS -------- HEIGHT: 167.6 cm WEIGHT: 123.8 kg BP: RVIDd: 2.6 cm (< 3.3) IVSd: 1.0 cm (0.6 - 1.1) LVIDd: 4.1 cm (3.9 - 5.3) LVPWd: 1.1 cm (0.6 - 1.1) IVSs: 1.4 cm LVIDs: 2.7 cm LVPWs: 1.8 cm Ao Diam: 2.2 cm (2.0 - 3.7) AV Cusp: 1.6 cm (1.5 - 2.6) LA Diam: 2.6 cm (2.7 - 3.8) MV EXCURSION: 18.221 mm (> 18.000) MV EF SLOPE: 150 mm/s (70 - 150) EPSS: 0.5 cm MV E Aramis: 0.77 m/s MV DecT: 174 ms MV A Aramis: 0.78 m/s MV E/A Ratio: 0.99 RAP: 5.00 mmHg RVSP: 9.94 mmHg FINDINGS -------- Sinus rhythm. This was a technically difficult study with suboptimal views. The left ventricular size is normal. Left ventricular wall thickness is normal. Overall left vent ricular systolic function is normal with, an EF between 55 - 60 %. The diastolic filling pattern is normal for the age of the patient {E/E'}. The right ventricle is normal in size. The left atrial size is normal. The right atrial size is normal. xx ml of Lumason was utilized for enhancement of images. The aortic valve is trileaflet and appears structurally normal. The mitral valve is normal. There is trace mitral regurgitation. The tricuspid valve appears structurally normal. Trace tricuspid regurgitation present. Right atul tricular systolic pressure is normal at < 35 mmHg. There is no pulmonic regurgitation present. The aortic root size is normal. IVC Not well visulized. There is a trivial pericardial effusion present. CONCLUSIONS -------- 1. Left ventricular wall thickness is normal. 2. Overall left ventricular systolic function is normal with, an EF between 55 - 60 %. 3. The diastolic filling pattern is normal for the age of the patient {E/E'} 4. There is trace mitral regurgitation. 5. Trace tricuspid regurgitation present. COMMUNICATIONS INTERN: Loretta Dickinson RDCS
[2019-12-07] MEDS ORDERED: ACETAMINOPHEN TAB 325 MG TAB PO PRN (11:01)
[2019-12-07 11:39] VITALS: BP 109/70; PULSE 82
--- NOTE | 2019-12-07 22:55 | P.HPIM ---
History of Present Illness H&P Date: 12/07/19 Chief Complaint: Syncope Patient is been 19-year-old female with a known history of asthma, seizure disorder, history of prior syncope, history of palpitations, ADD/ADHD, anxiety bipolar depression PTSD and previous history of smoking presents. After she had a syncopal episode. Patient is currently in a alf. Patient was told to clean the floor with bleach and while she was mopping suddenly she had a syncopal episode. Patient felt lightheaded and nauseated and fatigued all day prior to having to clean. However while cleaning her symptoms got exacerbated. Patient stopped cleaning and went to lay down. She is almost walking up the stairs and getting into her room and calling the staff that she was lightheaded and needed EMS. There is no witnessed syncopal episode. Currently patient is asymptomatic. Denied any complaints of dizziness or lightheadedness. No chest pain or shortness of breath. No fever no chills. No cough or sputum production. Denied any recent illnesses. Patient is noncompliant with her psychiatric medications. EKG showed normal sinus rhythm. No arrhythmia noted. Laboratory data showed WC 13.2, hemoglobin 13.6 and platelets 323 INR 0.9 Sodium 139, potassium 4.4, BUN 19 and creatinine 0.75 Orthostatic vitals negative TSH 5.440 and free T4 level is 0.88 Urine negative for infection Serum alcohol level is less than 10 Review of Systems Constitutional: Patient denies any fever or chills . No generalized weakness or weight loss. Abdomen: Patient denied nausea vomiting and diarrhea and abdominal pain. Cardiovascular: Patient denies any chest pain or short of breath no pal pitations. Respiratory: patient denied any cough is from production. No shortness of breath Neurologic: Patient denied any numbness or tingling headache. Musculoskeletal: Patient denies any complaints of joint swelling or deformity. Skin: Negative Psychiatric: Negative Endocrine: No heat or cold intolerance. No recent weight gain. Genitourinary: No dysuria or hematuria. All other 14 point ROS negative except the above Past Medical History Past Medical History: Asthma, Seizure Disorder, Syncope Additional Past Medical History / Comment(s): shoulder crepitus, asthma, heart palpitations. hx of only one seizure in the past History of Any Multi-Drug Resistant Organisms: None Reported Past Surgical History: No Surgical Hx Reported Past Anesthesia/Blood Transfusion Reactions: No Reported Reaction Additional Past Anesthesia/Blood Transfusion Reaction / Comment(s): pt stated has never had gen aa Past Psychological History: ADD/ADHD, Anxiety, Bipolar, Depression, PTSD Additional Psychological History / Comment(s): lives in a alf Smoking Status: Former smoker Past Alcohol Use History: None Reported Additional Past Alcohol Use History / Comment(s): started smoking 2016 quit 02-13-18(vaped) Past Drug Use History: None Reported Additional Drug Use History / Comment(s): "tired suleiman once in her life - Past Family History Mother Additional Family Medical History / Comment(s): bipolar,depression ptsd Father History Unknown: Yes Additional Family Medical History / Comment(s): pt stated that "her grandfather was the [place] prostitute killer" Medications and Allergies Home Medications Medication Instructions Recorded Confirmed Type Naproxen 500 mg PO BID PRN 05/20/18 12/07/19 History ALPRAZolam [Xanax] 0.25 - 0.5 mg PO Q6H PRN 05/10/19 12/07/19 History Metoprolol Succinate (ER) [Toprol 25 mg PO DAILY 05/10/19 12/07/19 History XL] Albuterol Sulfate [Ventolin HFA] 2 puff INHALATION RT-QID PRN 11/05/19 12/07/19 History Escitalopram [Lexapro] 20 mg PO DAILY 11/05/19 12/07/19 History [place] Carbonate 600 mg PO HS 11/05/19 12/07/19 History OLANZapine [ZyPREXA] 10 mg PO HS 11/05/19 12/07/19 History Pantoprazole [Protonix] 40 mg PO DAILY 11/05/19 12/07/19 History Ondansetron [Zofran ODT] 4 mg PO Q8HR PRN #10 tab 11/22/19 12/07/19 Rx Allergies Allergy/AdvReac Type Severity Reaction Status Date / Time cyclobenzaprine Allergy Severe Anaphylaxis Verified 12/07/19 07:56 [From Flexeril] amphetamine aspartate Allergy Rash/Hives Verified 12/07/19 07:56 [From Adderall] amphetamine sulfate Allergy Rash/Hives Verified 12/07/19 07:56 [From Adderall] dextroamphetamine saccharate Allergy Rash/Hives Verified 12/07/19 07:56 [From Adderall] dextroamphetamine sulfate Allergy Rash/Hives Verified 12/07/19 07:56 [From Adderall] methylphenidate HCl Allergy Rash/Hives Verified 12/07/19 07:56 [From Concerta] Physical Exam Vitals: Vital Signs Temp Pulse Pulse Resp BP BP Pulse Ox 12/07/19 08:56 90 18 12/07/19 07:55 98.3 F 90 18 126/75 98 12/07/19 03:09 98.2 F 102 H 18 155/67 97 12/07/19 02:44 98.4 F 100 18 131/68 95 12/07/19 00:17 98.8 F 99 16 142/75 95 Intake and Output 12/06/19 12/07/19 12/07/19 22:59 06:59 14:59 Intake Total 480 Balance 480 Intake: Oral 480 Other: Voiding Method Toilet Toilet # Voids 1 Weight 123.831 kg PHYSICAL EXAMINATION: Patient is lying in the bed comfortably, no acute distress, awake alert and oriented.. HEENT: Normocephalic. Neck is supple. Pupils reactive. Nostrils clear. Oral cavity is moist. Ears reveal no drainage. Neck reveals no JVD, carotid bruits, or thyromegaly. CHEST EXAMINATION: Trachea is central. Symmetrical expansion. Lung arce clear to auscultation and percussion. CARDIAC: Normal S1, S2 with no gallops. No murmurs ABDOMEN: Soft. Bowel sounds normal. No organomegaly. No abdominal bruits. Extremities: reveal no edema. No clubbing or cyanosis Neurologically awake, alert, oriented x3 with well-coordinated movements. No focal deficits noted Skin: No rash or skin lesions. Psychiatric: Coperative. Nonsuicidal Musculoskeletal: No joint swelling or deformity. Normal range of motion. Results CBC & Chem 7: 12/07/19 01:19 12/07/19 01:19 Labs: Abnormal Lab Results - Last 24 Hours (Table) 12/07/19 12/07/19 12/07/19 Range/Units 01:19 01:19 01:19 WBC 13.2 H (4.0-11.0) k/uL Neutrophils # 9.6 H (1.3-7.7) k/uL BUN 19 H (7-17) mg/dL Glucose 100 H (74-99) mg/dL ALT 42 H (4-34) U/L TSH 5.440 H (0.465-4.680) mIU/L Thrombosis Risk Factor Assmnt - DVT/VTE Prophylaxis DVT/VTE Prophylaxis: Pharmacologic Prophylaxis ordered Assessment and Plan Assessment: Acute syncopal episode as per patient along with dizziness and lightheadedness. Noncompliance with psychiatric medications Asthma stable History of seizure disorder ADD/ADHD, Anxiety/depression/bipolar and PTSD Previous history of smoking History of palpitations Morbid obesity BMI 44.1 Plan: Patient will be continued on telemetry monitoring. Patient was seen by cardiology. Serial troponin x3-. Patient had 2D echocardiogram was done showed normal ejection fraction and trace mitral regurgitation and trace tricuspid regurgitation. No arrhythmia noted on the telemetry. Further recommendations based on the clinical course.
--- NOTE | 2019-12-07 23:00 | P.DS ---
Providers Date of admission: 12/07/19 02:16 Expected date of discharge: 12/07/19 Attending physician: Dominick Rodrigues Consults: 12/07/19 02:15 Consult Physician Urgent Consulting Provider: Sarah Navarro Consult Reason/Comments: syncope Do you want consulting provider notified?: Yes Primary care physician: Latrice Laughlin [facility] Course: Discharge Diagnosis Acute syncopal episode as per patient along with dizziness and lightheadedness. Noncompliance with psychiatric medications Asthma stable History of seizure disorder ADD/ADHD, Anxiety/depression/bipolar and PTSD Previous history of smoking History of palpitations Morbid obesity BMI 44.1 Hospitral course Patient is been 19-year-old female with a known history of asthma, seizure disorder, history of prior syncope, history of palpitations, ADD/ADHD, anxiety bipolar depression PTSD and previous history of smoking presents. After she had a syncopal episode. Patient is currently in a custodial. Patient was told to clean the floor with bleach and while she was mopping suddenly she had a syncopal episode. Patient felt lightheaded and nauseated and fatigued all day prior to having to clean. However while cleaning her symptoms got exacerbated. Patient stopped cleaning and went to lay down. She is almost walking up the stairs and getting into her room and calling the staff that she was lightheaded and needed EMS. There is no witnessed syncopal episode. Currently patient is asymptomatic. Denied any complaints of dizziness or lightheadedness. No chest pain or shortness of breath. No fever no chills. No cough or sputum production. Denied any recent illnesses. Patient is noncompliant with her psychiatric medications. EKG showed normal sinus rhythm. No arrhythmia noted. Laboratory data showed WC 13.2, hemoglobin 13.6 and platelets 323 INR 0.9 Sodium 139, potassium 4.4, BUN 19 and creatinine 0.75 Orthostatic vitals negative TSH 5.440 and free T4 level is 0.88 Urine negative for infection Serum alcohol level is less than 10 Patient was continued on telemetry monitoring. Patient was seen by cardiology. Serial troponin x3-. Patient had 2D echocardiogram was done showed normal ejection fraction and trace mitral regurgitation and trace tricuspid regurgitation. No arrhythmia noted on the telemetry. Event monitor was placed per cardiology. Recommends to follow-up her PCP and also mitral clinic and counseled extensively for medication compliance. Patient is being discharged today. Discharge physical examination was done and vitals reviewed Patient Condition at Discharge: Stable Plan - Discharge Summary Discharge Rx Participant: Yes New Discharge Prescriptions: Continue Naproxen 500 mg PO BID PRN PRN Reason: Pain Metoprolol Succinate (ER) [Toprol XL] 25 mg PO DAILY ALPRAZolam [Xanax] 0.25 - 0.5 mg PO Q6H PRN PRN Reason: Anxiety [place] Carbonate 600 mg PO HS Albuterol Sulfate [Ventolin HFA] 2 puff INHALATION RT-QID PRN PRN Reason: Shortness Of Breath Pantoprazole [Protonix] 40 mg PO DAILY OLANZapine [ZyPREXA] 10 mg PO HS Escitalopram [Lexapro] 20 mg PO DAILY Ondansetron [Zofran ODT] 4 mg PO Q8HR PRN #10 tab PRN Reason: Nausea Discharge Medication List Naproxen 500 mg PO BID PRN 05/20/18 [History] ALPRAZolam [Xanax] 0.25 - 0.5 mg PO Q6H PRN 05/10/19 [History] Metoprolol Succinate (ER) [Toprol XL] 25 mg PO DAILY 05/10/19 [History] Albuterol Sulfate [Ventolin HFA] 2 puff INHALATION RT-QID PRN 11/05/19 [History] Escitalopram [Lexapro] 20 mg PO DAILY 11/05/19 [History] [place] Carbonate 600 mg PO HS 11/05/19 [History] OLANZapine [ZyPREXA] 10 mg PO HS 11/05/19 [History] Pantoprazole [Protonix] 40 mg PO DAILY 11/05/19 [History] Ondansetron [Zofran ODT] 4 mg PO Q8HR PRN #10 tab 11/22/19 [Rx] Follow up Appointment(s)/Referral(s): Natalee Orozco MD [STAFF PHYSICIAN] - 2 Weeks (office will notify you of follow up appointment) Sofi Pollard MD [Primary Care Provider] - 1-2 days Patient Instructions/Handouts: Dizziness (GEN), Shortness of Breath (ED), Holter Monitor (GEN) Discharge Disposition: HOME SELF-CARE
[2019-12-08] MEDS ORDERED: ASPIRIN 325 MG TAB PO SCH (09:00)
== END 2019-12-07 13:07 | disposition home or self-care (01) ==
LOC: EC 00:14 → 3NCARDOBS 02:16
PROVIDERS: ADMIT Hospitalist; ATTEND Hospitalist
DX: R55 Syncope and collapse (principal); Z03.818 Encounter for observation for suspected exposure to other biological agents ruled out; E66.01 Morbid (severe) obesity due to excess calories; F31.30 Bipolar disorder, current episode depressed, mild or moderate severity, unspecified; F43.10 Post-traumatic stress disorder, unspecified; F60.3 Borderline personality disorder; F90.9 Attention-deficit hyperactivity disorder, unspecified type; G40.909 Epilepsy, unspecified, not intractable, without status epilepticus; J45.909 Unspecified asthma, uncomplicated; Z91.14 Patient's other noncompliance with medication regimen; Z68.41 Body mass index [BMI] 40.0-44.9, adult; Z79.899 Other long term (current) drug therapy; Z81.8 Family history of other mental and behavioral disorders; Z87.891 Personal history of nicotine dependence; Z88.8 Allergy status to other drugs, medicaments and biological substances
CPT/HCPCS: 93005 ×2; 99285; 36415; 93270; 84439; 83880; 80053; 84443; 83735; 84100; 84484; 85025; 85610; 85730; 81003; G0378; C8929; G0480; U0003; Q9950; 80320; 93306

== ENCOUNTER 2019-12-15 14:17 | Emergency (ER) | payer OTHER ==
[2019-12-15 14:29] VITALS: RESP 16; TEMP 98.1
[2019-12-15] MEDS ORDERED: SODIUM CHLORIDE 0.9% 1,000 ML IV STA (14:40)
[2019-12-15] MEDS ORDERED: KETOROLAC 30 MG/ML 1 ML VIAL IVP STA (14:40)
[2019-12-15] MEDS ORDERED: diphenhydrAMINE 50 MG/ML 1 ML VIAL IVP STA (14:40)
[2019-12-15] MEDS ORDERED: ONDANSETRON 4 MG/2 ML VIAL IVP STA (14:40)
--- NOTE | 2019-12-15 15:05 | ED ---
Headache HPI - General Chief Complaint: Headache Stated Complaint: Headache Time Seen by Provider: 12/15/19 14:30 Limitations: no limitations - History of Present Illness Initial Comments: patient is a 19-year-old female, history of syncope, presenting to the emergency department via EMS with complaints of a headache 3 days. Patient states she is currently being worked up for multiple syncopal episodes. She states she had an MRI of her brain 2 days ago and since then she started to develop a headache. the headache has progressively gotten worse. She states she has tried at home medications as does ibuprofen, Aleve, Tylenol, Excedrin without relief. She states she has been nauseous, no vomiting. She states the lights do increase her symptoms. She denies any dizziness, blurry vision, numbness into her extremities. She states she does have a history of headaches but has not had one in a few years. Patient states she has not been able to eat much the last 2 days secondary to the headache. She states she was not able to sleep last night as well.she denies any recent fever or chills, no chest pain or shortness of breath. She has no further complaints. Upon arrival to the ER her vital signs are stable.of note, patient has service dog with her. - Related Data Home Medications Medication Instructions Recorded Confirmed Naproxen 500 mg PO BID PRN 05/20/18 12/07/19 ALPRAZolam [Xanax] 0.25 - 0.5 mg PO Q6H PRN 05/10/19 12/07/19 Metoprolol Succinate (ER) [Toprol 25 mg PO DAILY 05/10/19 12/07/19 XL] Albuterol Sulfate [Ventolin HFA] 2 puff INHALATION RT-QID PRN 11/05/19 12/07/19 Escitalopram [Lexapro] 20 mg PO DAILY 11/05/19 12/07/19 [place] Carbonate 600 mg PO HS 11/05/19 12/07/19 OLANZapine [ZyPREXA] 10 mg PO HS 11/05/19 12/07/19 Pantoprazole [Protonix] 40 mg PO DAILY 11/05/19 12/07/19 Previous Rx's Medication Instructions Recorded Ondansetron [Zofran ODT] 4 mg PO Q8HR PRN #10 tab 11/22/19 Allergies Allergy/AdvReac Type Severity Reaction Status Date / Time cyclobenzaprine Allergy Severe Anaphylaxis Verified 12/15/19 14:29 [From Flexeril] amphetamine aspartate Allergy Rash/Hives Verified 12/15/19 14:29 [From Adderall] amphetamine sulfate Allergy Rash/Hives Verified 12/15/19 14:29 [From Adderall] dextroamphetamine saccharate Allergy Rash/Hives Verified 12/15/19 14:29 [From Adderall] dextroamphetamine sulfate Allergy Rash/Hives Verified 12/15/19 14:29 [From Adderall] methylphenidate HCl Allergy Rash/Hives Verified 12/15/19 14:29 [From Concerta] Review of Systems ROS Statement: Those systems with pertinent positive or pertinent negative responses have been documented in the HPI. ROS Other: All systems not noted in ROS Statement are negative. Past Medical History Past Medical History: Asthma, Seizure Disorder, Syncope Additional Past Medical History / Comment(s): shoulder crepitus, asthma, heart palpitations History of Any Multi-Drug Resistant Organisms: None Reported Past Surgical History: No Surgical Hx Reported Past Anesthesia/Blood Transfusion Reactions: No Reported Reaction Additional Past Anesthesia/Blood Transfusion Reaction / Comment(s): pt stated has never had gen aa Past Psychological History: ADD/ADHD, Anxiety, Bipolar, Depression, PTSD Smoking Status: Former smoker Past Alcohol Use History: None Reported Past Drug Use History: None Reported - Past Family History Mother Additional Family Medical History / Comment(s): bipolar,depression ptsd Father History Unknown: Yes Additional Family Medical History / Comment(s): pt stated that "her grandfather was the ages [place] prostitute killer" General Exam - General Exam Comments Initial Comments: GENERAL: Patient is well-developed and well-nourished. Patient is nontoxic and in no ac jessica distress. HEAD: Atraumatic, normocephalic. EYES: Pupils equal round and reactive to light, extraocular movements intact, sclera anicteric, conjunctiva are normal. Eyelids were unremarkable. ENT: TMs normal, nares patent, oropharynx clear without exudates. Moist mucous membranes. NECK: Normal range of motion, supple without lymphadenopathy or JVD. LUNGS: Unlabored respirations. Breath sounds clear to auscultation bilaterally and equal. No wheezes rales or rhonchi. HEART: Regular rate and rhythm without murmurs, rubs or gallops. ABDOMEN: Soft, nontender, normoactive bowel sounds. No guarding, no rebound. No masses appreciated. : Deferred MUSCULOSKELETAL: Normal extremities with adequate strength and normal range of motion, no pitting or edema. No clubbing or cyanosis. NEUROLOGICAL: Patient is alert and oriented x 3. Motor and sensory are also intact. Cranial nerves II through XII grossly intact. Symmetrical smile. Normal speech, normal gait. PSYCH: Normal mood, normal affect. SKIN: Warm, Dry, normal turgor, no rashes or lesions noted. Limitations: no limitations Course Vital Signs 12/15/19 14:25 Temperature 98.1 F Pulse Rate 100 Respiratory 16 Rate Blood Pressure 138/81 O2 Sat by Pulse 98 Oximetry Medical Decision Making - Medical Decision Making patient is a 19-year-old female here for a headache 3 days. She is a history of headaches. Patient is currently being worked up for multiple syncopal episodes. She had recent computed tomography scan which was reviewed and showed no significant findings. Vital signs are stable.her exam was unremarkable, no neural deficits. patient was given fluids, Zofran, Benadryl and Toradol and states that her headache is totally gone. She states she is now just sleepy. She denies any further nausea. Patient is stable for discharge. Patient is in agreement with this plan of care. Patient will follow up with her PCP. Return parameters were discussed with the patient she verbalized understanding. Case discussed with Dr. Farley. Disposition Clinical Impression: Headache Disposition: HOME SELF-CARE Condition: Stable Instructions (If sedation given, give patient instructions): Acute Headache (ED) Additional Instructions: Please return to the Emergency Department if symptoms worsen or any other concerns. Follow-up with PCP. Is patient prescribed a controlled substance at d/c from ED?: No Referrals: Sofi Pollard MD [Primary Care Provider] - 1-2 days
[2019-12-15 16:37] VITALS: BP 115/86; PULSE 86
== END 2019-12-15 16:36 | disposition home or self-care (01) ==
LOC: EC 14:17
DX: R51 Headache (principal); R55 Syncope and collapse; J45.909 Unspecified asthma, uncomplicated; G40.909 Epilepsy, unspecified, not intractable, without status epilepticus; F41.9 Anxiety disorder, unspecified; F31.9 Bipolar disorder, unspecified; F43.10 Post-traumatic stress disorder, unspecified; Z87.891 Personal history of nicotine dependence; Z88.8 Allergy status to other drugs, medicaments and biological substances; Z79.899 Other long term (current) drug therapy
CPT/HCPCS: 99283; 96374; 96375 ×2; 96361; J1200; J2405; J1885

== ENCOUNTER → 2020-01-18 | Outpatient (CLI) | payer OTHER ==
--- NOTE | 2020-01-18 10:09 | US ---
EXAMINATION TYPE: US carotid duplex BILAT DATE OF EXAM: 01/18/2020 COMPARISON: NONE CLINICAL HISTORY: R55 Syncope. Syncope EXAM MEASUREMENTS: RIGHT: Peak Systolic Velocity (PSV) cm/sec ----- Right CCA: 111.3 ----- Right ICA: 101.1 ----- Right ECA: 136.6 ICA/CCA ratio: 0.9 RIGHT: End Diastole cm/sec ----- Right CCA: 34.3 ----- Right ICA: 36.5 ----- Right ECA: 28.4 LEFT: Peak Systolic Velocity (PSV) cm/sec ----- Left CCA: 104.3 ----- Left ICA: 104.3 ----- Left ECA: 109.2 ICA/CCA ratio: 1.0 LEFT: End Diastole cm/sec ----- Left CCA: 34.9 ----- Left ICA: 34.9 ----- Left ECA: 15.5 VERTEBRALS (direction of flow): Right Vertebral: Antegrade Left Vertebral: Antegrade Rhythm: Normal Grayscale, color Doppler, spectral Doppler imaging performed of the carotid arteries. Waveform analys is does not show significant stenosis of the internal carotid arteries. No significant stenosis seen IMPRESSION: No hemodynamic significant stenosis of the proximal internal carotid arteries by Doppler criteria, an indirect measurement of carotid stenosis
== END | disposition home or self-care (01) ==
LOC: RADUSWWP 08:00
PROVIDERS: ATTEND Psychiatry & Neurology Neurology
DX: R55 Syncope and collapse (principal)
CPT/HCPCS: 93880

== ENCOUNTER → 2020-01-18 | Outpatient (CLI) | payer OTHER ==
--- NOTE | 2020-01-18 09:17 | US ---
EXAMINATION TYPE: US liver DATE OF EXAM: 01/18/2020 COMPARISON: NONE CLINICAL HISTORY: R94.5 Abnormal Liver. Elevated liver enzymes EXAM MEASUREMENTS: Liver Length: 17.3 cm Gallbladder Wall: .3 cm CBD: .4 cm Right Kidney: 9.6 x 3.5 x 5.0 cm Pancreas: Tail obscured by overlying bowel gas Liver: Increased attenuation Gallbladder: No stones seen Evidence for sonographic Grider's sign: No CBD: wnl Right Kidney: wnl IMPRESSION: Exam is somewhat limited. Correlate for hepatic steatosis, hepatocellular disease.
== END | disposition home or self-care (01) ==
LOC: RADUSWWP 07:59
PROVIDERS: ATTEND Internal Medicine
DX: R94.5 Abnormal results of liver function studies (principal); Z88.9 Allergy status to unspecified drugs, medicaments and biological substances
CPT/HCPCS: 76705

== ENCOUNTER 2020-02-02 23:08 | Emergency (ER) | payer OTHER ==
[2020-02-02 23:18] VITALS: PULSE 87
--- NOTE | 2020-02-02 23:23 | ED ---
Anxiety HPI <Megan Ascenciowalker Trinidad - Last Filed: 02/03/20 01:27> - General Source: patient, EMS Mode of arrival: EMS <Norman Dupree - Last Filed: 02/03/20 03:15> - General Chief Complaint: Anxiety Stated Complaint: SOB Time Seen by Provider: 02/02/20 23:20 - History of Present Illness Initial Comments: Patient is a 19-year-old female with history of anxiety presenting to the emergency department with a chief complaint of anxiety. 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 States her last dose was about one month ago. 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 Patient states she takes being in the hospital. States today she developed an acute anxiety attack with rapid showed breathing, racing thoughts and chest pressure. States once the ambulance arrived she was brought to the ED, her anxiety has improved. Denies any muscle, suicidal thoughts or ideations. States she is currently taking BuSpar for anxiety. (Norman Dupree) - Related Data Home Medications: Home Medications Medication Instructions Recorded Confirmed Naproxen 500 mg PO BID PRN 05/20/18 12/07/19 ALPRAZolam [Xanax] 0.25 - 0.5 mg PO Q6H PRN 05/10/19 12/07/19 Metoprolol Succinate (ER) [Toprol 25 mg PO DAILY 05/10/19 12/07/19 XL] Albuterol Sulfate [Ventolin HFA] 2 puff INHALATION RT-QID PRN 11/05/19 12/07/19 Escitalopram [Lexapro] 20 mg PO DAILY 11/05/19 12/07/19 [place] Carbonate 600 mg PO HS 11/05/19 12/07/19 OLANZapine [ZyPREXA] 10 mg PO HS 11/05/19 12/07/19 Pantoprazole [Protonix] 40 mg PO DAILY 11/05/19 12/07/19 Previous Rx's Medication Instructions Recorded Ondansetron [Zofran ODT] 4 mg PO Q8HR PRN #10 tab 11/22/19 Allergies/Adverse Reactions: Allergies Allergy/AdvReac Type Severity Reaction Status Date / Time cyclobenzaprine Allergy Severe Anaphylaxis Verified 02/02/20 23:18 [From Flexeril] amphetamine aspartate Allergy Rash/Hives Verified 02/02/20 23:18 [From Adderall] amphetamine sulfate Allergy Rash/Hives Verified 02/02/20 23:18 [From Adderall] dextroamphetamine saccharate Allergy Rash/Hives Verified 02/02/20 23:18 [From Adderall] dextroamphetamine sulfate Allergy Rash/Hives Verified 02/02/20 23:18 [From Adderall] methylphenidate HCl Allergy Rash/Hives Verified 02/02/20 23:18 [From Concerta] Review of Systems ROS Other: All systems not noted in ROS Statement are negative. <Yvrose Ascencio - Last Filed: 02/03/20 01:27> ROS Other: All systems not noted in ROS Statement are negative. <Norman Dupree - Last Filed: 02/03/20 03:15> ROS Statement: Those systems with pertinent positive or pertinent negative responses have been documented in the HPI. Past Medical History Past Medical History: Asthma, Diabetes Mellitus, Seizure Disorder, Syncope Additional Past Medical History / Comment(s): shoulder crepitus, asthma, heart palpitations History of Any Multi-Drug Resistant Organisms: None Reported Past Surgical History: No Surgical Hx Reported Past Anesthesia/Blood Transfusion Reactions: No Reported Reaction Additional Past Anesthesia/Blood Transfusion Reaction / Comment(s): pt stated has never had gen aa Past Psychological History: ADD/ADHD, Anxiety, Bipolar, Depression, PTSD Smoking Status: Former smoker Past Alcohol Use History: None Reported Past Drug Use History: None Reported - Past Family History Mother Additional Family Medical History / Comment(s): bipolar,depression ptsd Father History Unknown: Yes Additional Family Medical History / Comment(s): pt stated that "her grandfather was the [place] prostitute killer" <Norman Dupree - Last Filed: 02/03/20 03:15> General Exam Limitations: no limitations General appearance: alert, in no apparent distress, anxious Head exam: Present: atraumatic, normocephalic, normal inspection Eye exam: Present: normal appearance, PERRL, EOMI Pupils: Present: normal accommodation ENT exam: Present: normal exam, normal oropharynx, mucous membranes moist Neck exam: Present: normal inspection, full ROM. Absent: tenderness, men ingismus Respiratory exam: Present: normal lung sounds bilaterally. Absent: respiratory distress, wheezes, rales Cardiovascular Exam: Present: regular rate, normal rhythm, normal heart sounds Extremities exam: Present: normal inspection, full ROM, normal capillary refill. Absent: tenderness Back exam: Present: normal inspection, full ROM. Absent: tenderness, CVA tenderness (R), CVA tenderness (L) Neurological exam: Present: alert, oriented X3, normal gait Psychiatric exam: Present: normal affect, anxious Skin exam: Present: warm, dry, intact, normal color <Norman Dupree - Last Filed: 02/03/20 03:15> Course Vital Signs 02/02/20 02/03/20 23:12 01:35 Temperature 99.1 F 98.2 F Pulse Rate 87 87 Respiratory 19 18 Rate Blood Pressure 128/78 131/67 O2 Sat by Pulse 96 99 Oximetry Medical Decision Making <Norman Dupree - Last Filed: 02/03/20 03:15> - Medical Decision Making Patient is a 19-year-old female presenting to the emergency department chief complaint of anxiety. Physical examination is unremarkable. Patient does appear to exhibit signs of acute anxiety which she states this is typical for her. EPS evaluated the patient and she will be discharged with follow-up to [facility]. Patient advised to continue taking her psychiatric medication. Strict return parameters were thoroughly discussed patient was understanding and agreeable. Denies suicidal, homicidal thoughts or ideations. Case discussed with physician. (Norman Dupree) - Lab Data Lab Results 02/02/20 Range/Units 23:56 Urine Opiates Screen Not Detected (NotDetected) Ur Oxycodone Screen Not Detected (NotDetected) Urine Methadone Screen Not Detected (NotDetected) Ur Propoxyphene Screen Not Detected (NotDetected) Ur Barbiturates Screen Not Detected (NotDetected) U Tricyclic Antidepress Not Detected (NotDetected) Ur Phencyclidine Scrn Not Detected (NotDetected) Ur Amphetamines Screen Not Detected (NotDetected) U Methamphetamines Scrn Not Detected (NotDetected) U Benzodiazepines Scrn Not Detected (NotDetected) Urine Cocaine Screen Not Detected (NotDetected) U Marijuana (THC) Screen Not Detected (NotDetected) Disposition Is patient prescribed a controlled substance at d/c from ED?: No <Yvrose Ascencio - Last Filed: 02/03/20 01:27> Is patient prescribed a controlled substance at d/c from ED?: No Time of Disposition: 01:35 <Norman Dupree - Last Filed: 02/03/20 03:15> Clinical Impression: Acute anxiety, Borderline personality disorder in adult Disposition: HOME SELF-CARE Instructions (If sedation given, give patient instructions): Generalized Anxiety Disorder (ED) Additional Instructions: Follow up with [facility]. Return to emergency department if symptoms worsen. Referrals: Sofi Pollard MD [Primary Care Provider] - 1-2 days
[2020-02-03 00:13] LABS: Amphetamine Screen,Urine Not Detected (NotDetected); Barbiturate Screen,Urine Not Detected (NotDetected); Benzodiazepines Screen,Urine Not Detected (NotDetected); Cocaine Screen,Urine Not Detected (NotDetected); Methadone Screen, Urine Not Detected (NotDetected); Opiate Screen,Urine Not Detected (NotDetected); Oxycodone Screen, Urine Not Detected (NotDetected); Phencyclidine Screen,Urine Not Detected (NotDetected); Tricyclic Antidepressant,Urine Not Detected (NotDetected); Urn Cannabinoid Scrn Not Detected (NotDetected)
[2020-02-03 01:38] VITALS: BP 131/67; RESP 18; TEMP 98.2
== END 2020-02-03 02:00 | disposition home or self-care (01) ==
LOC: EC 23:08
DX: F41.9 Anxiety disorder, unspecified (principal); J45.909 Unspecified asthma, uncomplicated; F60.3 Borderline personality disorder; F31.9 Bipolar disorder, unspecified; Z79.899 Other long term (current) drug therapy; Z87.891 Personal history of nicotine dependence; Z88.8 Allergy status to other drugs, medicaments and biological substances
CPT/HCPCS: 80306; 82075; 99284

== ENCOUNTER 2020-02-06 12:01 | Emergency (ER) | payer OTHER ==
[2020-02-06 12:06] VITALS: RESP 16; TEMP 98.8
--- NOTE | 2020-02-06 12:19 | ED ---
Dizziness HPI - General Chief Complaint: Syncope Stated Complaint: SYNCOPE Time Seen by Provider: 02/06/20 12:09 Source: EMS, RN notes reviewed, old records reviewed Mode of arrival: EMS Limitations: no limitations - History of Present Illness Initial Comments: Carmita is a 19-year-old female presents emergency department today with complaint of a syncopal episode while she was donating plasma. She states she donates plasma from time to time. Patient states that she's been having frequent syncopal episodes despite donating plasma. She's had workups with neurology and cardiology. Patient states she has no caput planes of pain at this time. - Related Data Home Medications Medication Instructions Recorded Confirmed Metoprolol Succinate (ER) [Toprol 25 mg PO DAILY 05/10/19 02/06/20 XL] Albuterol Sulfate [Ventolin HFA] 2 puff INHALATION RT-QID PRN 11/05/19 02/06/20 Pantoprazole [Protonix] 40 mg PO DAILY PRN 11/05/19 02/06/20 Medroxyprogesterone Acetate 150 mg IM Q90D 02/06/20 02/06/20 [Depo-Provera] busPIRone HCL [Buspar] 7.5 mg PO BID 02/06/20 02/06/20 metFORMIN HCL [Glucophage] 500 mg PO BID 02/06/20 02/06/20 Allergies Allergy/AdvReac Type Severity Reaction Status Date / Time cyclobenzaprine Allergy Severe Anaphylaxis Verified 02/06/20 13:12 [From Flexeril] amphetamine aspartate Allergy Rash/Hives Verified 02/06/20 13:12 [From Adderall] amphetamine sulfate Allergy Rash/Hives Verified 02/06/20 13:12 [From Adderall] dextroamphetamine saccharate Allergy Rash/Hives Verified 02/06/20 13:12 [From Adderall] dextroamphetamine sulfate Allergy Rash/Hives Verified 02/06/20 13:12 [From Adderall] methylphenidate HCl Allergy Rash/Hives Verified 02/06/20 13:12 [From Concerta] Review of Systems ROS Statement: Those systems with pertinent positive or pertinent negative responses have been documented in the HPI. ROS Other: All systems not noted in ROS Statement are negative. Past Medical History Past Medical History: Asthma, Diabetes Mellitus, Seizure Disorder, Syncope Additional Past Medical History / Comment(s): shoulder crepitus, asthma, heart palpitations History of Any Multi-Drug Resistant Organisms: None Reported Past Surgical History: No Surgical Hx Reported Past Anesthesia/Blood Transfusion Reactions: No Reported Reaction Additional Past Anesthesia/Blood Transfusion Reaction / Comment(s): pt stated has never had gen aa Past Psychological History: ADD/ADHD, Anxiety, Bipolar, Depression, PTSD Smoking Status: Former smoker Past Alcohol Use History: None Reported Past Drug Use History: None Reported - Past Family History Mother Additional Family Medical History / Comment(s): bipolar,depression ptsd Father History Unknown: Yes Additional Family Medical History / Comment(s): pt stated that "her grandfather was the [place] prostitute killer" General Exam - General Exam Comments Initial Comments: 19-year-old female. Alert and oriented 3. Hostile attitude. Limitations: no limitations General appearance: alert, in no apparent distress Head exam: Present: atraumatic, normocephalic, normal inspection Eye exam: Present: normal appearance, PERRL, EOMI. Absent: scleral icterus, conjunctival injection, periorbital swelling ENT exam: Present: normal exam, mucous membranes moist Neck exam: Present: normal inspection. Absent: tenderness, meningismus, lymphadenopathy Respiratory exam: Present: normal lung sounds bilaterally. Absent: respiratory distress, wheezes, rales, rhonchi, stridor Cardiovascular Exam: Present: regular rate, normal rhythm, normal heart sounds. Absent: systolic murmur, diastolic murmur, rubs, gallop, clicks GI/Abdominal exam: Present: soft, normal bowel sounds. Absent: distended, tenderness, guarding, rebound, rigid Extremities exam: Present: normal inspection, full ROM, normal capillary refill. Absent: tenderness, pedal edema, joint swelling, calf tenderness Back exam: Present: normal inspection Neurological exam: Present: alert, oriented X3, CN II-XII intact Psychiatric exam: Present: normal affect, normal mood Skin exam: Present: warm, dry, intact, normal color. Absent: rash Course Vital Signs 02/06/20 02/06/20 02/06/20 12:04 12:42 12:44 Temperature 98.8 F Pulse Rate 92 54 L 65 Respiratory 16 16 16 Rate Blood Pressure 109/70 72/33 101/52 O2 Sat by Pulse 98 97 97 Oximetry 02/06/20 13:24 Temperature Pulse Rate 95 Respiratory 16 Rate Blood Pressure 109/53 O2 Sat by Pulse 100 Oximetry EKG Findings - EKG Comments: EKG Findings:: EKG shows normal sinus normal EKG. Jugular rate of 88 bpm. Verbal is 148 ms. Respirations 82 ms. QT QTc is 346/418 ms. Medical Decision Making - Medical Decision Making 19-year-old female presents today for concern for syncopal episode while donating plasma. Patient has no complaint of any pain at this time. Patient kandis abernathy obtained an EKG obtained which are unremarkable does have leukocytosis. She is currently being treated for UTI. To leave urine sample today. She does not know antibiotic she is on appear she's been on it for 2 days. She denies abdominal pain or other significant complaints. Patient advised close follow-up with primary care doctor, neurology and cardiology she's had multiple syncopal episodes. Discusses no further workup in the ER to start this time. Discussed return parameters. - Lab Data Result diagrams: 02/06/20 12:32 02/06/20 12:32 Lab Results 02/06/20 02/06/20 02/06/20 Range/Units 12:32 12:32 12:32 WBC 19.8 H (4.0-11.0) k/uL RBC 5.15 (3.80-5.40) m/uL Hgb 14.7 (11.4-16.0) gm/dL Hct 46.1 H (34.0-46.0) % MCV 89.5 (80.0-100.0) fL MCH 28.6 (25.0-35.0) pg MCHC 32.0 (31.0-37.0) g/dL RDW 13.2 (11.5-15.5) % Plt Count 311 (150-450) k/uL Neutrophils % 80 % Lymphocytes % 14 % Monocytes % 3 % Eosinophils % 1 % Basophils % 0 % Neutrophils # 15.9 H (1.3-7.7) k/uL Lymphocytes # 2.7 (1.0-4.8) k/uL Monocytes # 0.7 (0-1.0) k/uL Eosinophils # 0.2 (0-0.7) k/uL Basophils # 0.1 (0-0.2) k/uL PT 10.7 (9.0-12.0) sec INR 1.0 (<1.2) APTT 23.5 (22.0-30.0) sec Sodium 138 (137-145) mmol/L Potassium 4.3 (3.5-5.1) mmol/L Chloride 106 (98-107) mmol/L Carbon Dioxide 26 (22-30) mmol/L Anion Gap 6 mmol/L BUN 15 (7-17) mg/dL Creatinine 0.76 (0.52-1.04) mg/dL Est GFR (CKD-EPI)AfAm >90 (>60 ml/min/1.73 sqM) Est GFR (CKD-EPI)NonAf >90 (>60 ml/min/1.73 sqM) Glucose 99 (74-99) mg/dL Calcium 8.7 (8.4-10.2) mg/dL Total Bilirubin 0.3 (0.2-1.3) mg/dL AST 19 (14-36) U/L ALT 23 (4-34) U/L Alkaline Phosphatase 82 (38-126) U/L Troponin I (0.000-0.034) ng/mL Total Protein 6.5 (6.3-8.2) g/dL Albumin 3.9 (3.5-5.0) g/dL 02/06/20 Range/Units 12:32 WBC (4.0-11.0) k/uL RBC (3.80-5.40) m/uL Hgb (11.4-16.0) gm/dL Hct (34.0-46.0) % MCV (80.0-100.0) fL MCH (25.0-35.0) pg MCHC (31.0-37.0) g/dL RDW (11.5-15.5) % Plt Count (150-450) k/uL Neutrophils % % Lymphocytes % % Monocytes % % Eosinophils % % Basophils % % Neutrophils # (1.3-7.7) k/uL Lymphocytes # (1.0-4.8) k/uL Monocytes # (0-1.0) k/uL Eosinophils # (0-0.7) k/uL Basophils # (0-0.2) k/uL PT (9.0-12.0) sec INR (<1.2) APTT (22.0-30.0) sec Sodium (137-145) mmol/L Potassium (3.5-5.1) mmol/L Chloride (98-107) mmol/L Carbon Dioxide (22-30) mmol/L Anion Gap mmol/L BUN (7-17) mg/dL Creatinine (0.52-1.04) mg/dL Est GFR (CKD-EPI)AfAm (>60 ml/min/1.73 sqM) Est GFR (CKD-EPI)NonAf (>60 ml/min/1.73 sqM) Glucose (74-99) mg/dL Calcium (8.4-10.2) mg/dL Total Bilirubin (0.2-1.3) mg/dL AST (14-36) U/L ALT (4-34) U/L Alkaline Phosphatase (38-126) U/L Troponin I <0.012 (0.000-0.034) ng/mL Total Protein (6.3-8.2) g/dL Albumin (3.5-5.0) g/dL Disposition Clinical Impression: Syncope Disposition: HOME SELF-CARE Condition: Good Instructions (If sedation given, give patient instructions): Syncope (ED) Additional Instructions: Patient should not donate plasma in the near future. Rest, remain hydrated. HEENT plenty of snacks. Return to the ED if any alarming signs or symptoms occur. Is patient prescribed a controlled substance at d/c from ED?: No Referrals: [facility] [Primary Care Provider] - 1-2 days Time of Disposition: 13:51
[2020-02-06] MEDS ORDERED: SODIUM CHLORIDE 0.9% 1,000 ML IV STA (12:26)
[2020-02-06 12:53] LABS: Basophils # (A) 0.1 k/uL (0-0.2); Basophils % (A) 0 %; Eosinophils # (A) 0.2 k/uL (0-0.7); Eosinophils % (A) 1 %; HCT 46.1 % (34.0-46.0); HGB 14.7 gm/dL (11.4-16.0); Lymphocytes # (A) 2.7 k/uL (1.0-4.8); Lymphocytes % (A) 14 %; MCH 28.6 pg (25.0-35.0); MCV 89.5 fL (80.0-100.0); Mean Platelet Volume 7.5; Monocytes # (A) 0.7 k/uL (0-1.0); Monocytes % (A) 3 %; Neutrophils # (A) 15.9 k/uL (1.3-7.7); Neutrophils % (A) 80 %; Platelet Count 311 k/uL (150-450); RBC 5.15 m/uL (3.80-5.40); RDW 13.2 % (11.5-15.5); WBC 19.8 k/uL (4.0-11.0)
[2020-02-06 13:04] LABS: Partial Thromboplastin Time 23.5 sec (22.0-30.0); Prothrombin Time 10.7 sec (9.0-12.0)
[2020-02-06 13:05] LABS: ALT 23 U/L (4-34); AST 19 U/L (14-36); African American GFR (CKD) >90 (>60 ml/min/1.73 sqM); Albumin 3.9 g/dL (3.5-5.0); Alkaline Phosphatase 82 U/L (38-126); Anion Gap 6 mmol/L; Blood Urea Nitrogen 15 mg/dL (7-17); Calcium 8.7 mg/dL (8.4-10.2); Carbon Dioxide 26 mmol/L (22-30); Chloride 106 mmol/L (98-107); Glucose 99 mg/dL (74-99); Non-African American GFR(CKD) >90 (>60 ml/min/1.73 sqM); Potassium 4.3 mmol/L (3.5-5.1); Sodium 138 mmol/L (137-145); Total Bilirubin 0.3 mg/dL (0.2-1.3); Total Protein 6.5 g/dL (6.3-8.2)
[2020-02-06 13:25] VITALS: BP 109/53; PULSE 95
[2020-02-06 14:29] LABS: Appearance,Urine Cloudy (Clear); Bacteria,Urine Rare /hpf; Bilirubin,Urine Negative (Negative); Blood,Urine Negative (Negative); Color,Urine Yellow; Glucose,Urine (UA) Negative (Negative); Ketones,Urine 1+ (Negative); Leukocyte Esterase,Urine Moderate (Negative); Mucus,Urine Many /hpf; Nitrite,Urine Negative (Negative); Protein,Urine Trace (Negative); Specific Gravity,Urine 1.027 (1.001-1.035); Squamous Epithelial Cell,Urine 12 /hpf (0-4); Urobilinogen,Urine <2.0 mg/dL (<2.0); WBC,Urine 10 /hpf (0-5)
== END 2020-02-06 14:02 | disposition home or self-care (01) ==
LOC: EC 12:01 → EEVIPCON 12:01 → EC 14:02
DX: R55 Syncope and collapse (principal); D72.829 Elevated white blood cell count, unspecified; J45.909 Unspecified asthma, uncomplicated; E11.9 Type 2 diabetes mellitus without complications; F41.9 Anxiety disorder, unspecified; F31.9 Bipolar disorder, unspecified; Z79.84 Long term (current) use of oral hypoglycemic drugs; Z79.51 Long term (current) use of inhaled steroids; Z79.899 Other long term (current) drug therapy; Z79.3 Long term (current) use of hormonal contraceptives; Z87.891 Personal history of nicotine dependence; Z88.8 Allergy status to other drugs, medicaments and biological substances
CPT/HCPCS: 36415; 80053; 81001; 84484; 85025; 85610; 85730; 93005; 96360; 99284

== ENCOUNTER 2020-02-13 20:44 | Emergency (ER) | payer OTHER ==
--- NOTE | 2020-02-13 23:10 | ED ---
General Adult HPI - General Chief complaint: Psychiatric Symptoms Stated complaint: Mental Health Time Seen by Provider: 02/13/20 21:09 Source: patient, police, RN notes reviewed Mode of arrival: ambulatory Limitations: no limitations - History of Present Illness Initial comments: 19-year-old female with a past psychiatric history of bipolar disorder, d epression, anxiety, ADD, PTSD presents to the emergency room for a chief complaint of suicidal thoughts. Patient states she always has suicidal thoughts however they've worsened in the past few weeks. States she is getting an apartment by herself and this is causing a lot of stress as she does not have a job to pay the bills. Patient reports that she is supposed to be on several psychiatric medications which she discontinued herself 3 months ago as she could not get into a psychiatrist she preferred to see. Patient denies a plan of suicide. Patient denies thoughts of harming anyone else. Patient has no other complaints at this time including shortness of breath, chest pain, abdominal pain, nausea or vomiting, headache, or visual changes. - Related Data Home Medications Medication Instructions Recorded Confirmed Metoprolol Succinate (ER) [Toprol 25 mg PO DAILY 05/10/19 02/13/20 XL] Albuterol Sulfate [Ventolin HFA] 2 puff INHALATION RT-QID PRN 11/05/19 02/13/20 Pantoprazole [Protonix] 40 mg PO DAILY PRN 11/05/19 02/13/20 Medroxyprogesterone Acetate 150 mg IM Q90D 02/06/20 02/13/20 [Depo-Provera] busPIRone HCL [Buspar] 7.5 mg PO BID 02/06/20 02/13/20 metFORMIN HCL [Glucophage] 500 mg PO BID 02/06/20 02/13/20 Allergies Allergy/AdvReac Type Severity Reaction Status Date / Time cyclobenzaprine Allergy Severe Anaphylaxis Verified 02/13/20 22:58 [From Flexeril] amphetamine aspartate Allergy Rash/Hives Verified 02/13/20 22:58 [From Adderall] amphetamine sulfate Allergy Rash/Hives Verified 02/13/20 22:58 [From Adderall] dextroamphetamine saccharate Allergy Rash/Hives Verified 02/13/20 22:58 [From Adderall] dextroamphetamine sulfate Allergy Rash/Hives Verified 02/13/20 22:58 [From Adderall] methylphenidate HCl Allergy Rash/Hives Verified 02/13/20 22:58 [From Concerta] Review of Systems ROS Statement: Those systems with pertinent positive or pertinent negative responses have been documented in the HPI. ROS Other: All systems not noted in ROS Statement are negative. Past Medical History Past Medical History: Asthma, Diabetes Mellitus, Seizure Disorder, Syncope Additional Past Medical History / Comment(s): shoulder crepitus, asthma, heart palpitations History of Any Multi-Drug Resistant Organisms: None Reported Past Surgical History: No Surgical Hx Reported Past Anesthesia/Blood Transfusion Reactions: No Reported Reaction Additional Past Anesthesia/Blood Transfusion Reaction / Comment(s): pt stated has never had gen aa Past Psychological History: ADD/ADHD, Anxiety, Bipolar, Depression, PTSD Smoking Status: Former smoker Past Alcohol Use History: None Reported Past Drug Use History: None Reported - Past Family History Mother Additional Family Medical History / Comment(s): bipolar,depression ptsd Father History Unknown: Yes Additional Family Medical History / Comment(s): pt stated that "her grandfather was the [place] prostitute killer" General Exam Limitations: no limitations General appearance: alert, in no apparent distress Head exam: Present: atraumatic, normocephalic, normal inspection Eye exam: Present: normal appearance, PERRL, EOMI. Absent: scleral icterus, conjunctival injection, periorbital swelling ENT exam: Present: normal exam, mucous membranes moist Neck exam: Present: normal inspection, full ROM. Absent: tenderness, meningismus, lymphadenopathy Respiratory exam: Present: normal lung sounds bilaterally. Absent: respiratory distress, wheezes, rales, rhonchi, stridor Cardiovascular Exam: Present: regular rate, normal rhythm, normal heart sounds. Absent: bradycardia, tachycardia, irregular rhythm GI/Abdominal exam: Present: soft, normal bowel sounds. Absent: distended, tenderness, guarding, rebound, rigid Course Vital Signs 02/13/20 21:05 Temperature 98.1 F Pulse Rate 116 H Respiratory 20 Rate Blood Pressure 128/74 O2 Sat by Pulse 99 Oximetry Medical Decision Making - Medical Decision Making Patient was evaluated by EPS. They feel that this is situational. They have helped patient find ways to pay her bills along with her legal guardian. Patient is feeling much workup for what this time. She has appointment with [facility]. She will follow up with them and return here to the emergency room. Patient is feeling much better and is comfortable being discharged home. - Lab Data Lab Results 02/13/20 Range/Units 23:15 Urine Opiates Screen Not Detected (NotDetected) Ur Oxycodone Screen Not Detected (NotDetected) Urine Methadone Screen Not Detected (NotDetected) Ur Propoxyphene Screen Not Detected (NotDetected) Ur Barbiturates Screen Not Detected (NotDetected) U Tricyclic Antidepress Not Detected (NotDetected) Ur Phencyclidine Scrn Not Detected (NotDetected) Ur Amphetamines Screen Not Detected (NotDetected) U Methamphetamines Scrn Not Detected (NotDetected) U Benzodiazepines Scrn Not Detected (NotDetected) Urine Cocaine Screen Not Detected (NotDetected) U Marijuana (THC) Screen Not Detected (NotDetected) Disposition Clinical Impression: Adjustment reaction Disposition: HOME SELF-CARE Condition: Good Instructions (If sedation given, give patient instructions): Depression (ED) Additional Instructions: Please follow up with [facility]. Return to the emergency room for any worsening symptoms. Is patient prescribed a controlled substance at d/c from ED?: No Referrals: [facility] [Primary Care Provider] - 1-2 days Time of Disposition: 01:06
[2020-02-13 23:33] LABS: Amphetamine Screen,Urine Not Detected (NotDetected); Barbiturate Screen,Urine Not Detected (NotDetected); Benzodiazepines Screen,Urine Not Detected (NotDetected); Cocaine Screen,Urine Not Detected (NotDetected); Methadone Screen, Urine Not Detected (NotDetected); Opiate Screen,Urine Not Detected (NotDetected); Oxycodone Screen, Urine Not Detected (NotDetected); Phencyclidine Screen,Urine Not Detected (NotDetected); Tricyclic Antidepressant,Urine Not Detected (NotDetected); Urn Cannabinoid Scrn Not Detected (NotDetected)
[2020-02-14] MEDS ORDERED: IBUPROFEN 600 MG TAB PO STA (00:36)
[2020-02-14 01:58] VITALS: BP 113/61; PULSE 948; RESP 18; TEMP 98.2
== END 2020-02-14 01:58 | disposition home or self-care (01) ==
LOC: EC 20:44
DX: F43.20 Adjustment disorder, unspecified (principal); R45.851 Suicidal ideations; F41.9 Anxiety disorder, unspecified; F31.9 Bipolar disorder, unspecified; F43.10 Post-traumatic stress disorder, unspecified; J45.909 Unspecified asthma, uncomplicated; E11.9 Type 2 diabetes mellitus without complications; G40.909 Epilepsy, unspecified, not intractable, without status epilepticus; Z79.51 Long term (current) use of inhaled steroids; Z79.84 Long term (current) use of oral hypoglycemic drugs; Z79.899 Other long term (current) drug therapy; Z79.3 Long term (current) use of hormonal contraceptives; Z87.891 Personal history of nicotine dependence; Z88.8 Allergy status to other drugs, medicaments and biological substances
CPT/HCPCS: 80306; 82075; 99285

== ENCOUNTER 2020-02-16 20:19 | Emergency (ER) | payer OTHER ==
[2020-02-16 22:02] LABS: Appearance,Urine Clear (Clear); Bilirubin,Urine Negative (Negative); Blood,Urine Negative (Negative); Color,Urine Yellow; Glucose,Urine (UA) Negative (Negative); Ketones,Urine Negative (Negative); Leukocyte Esterase,Urine Negative (Negative); Nitrite,Urine Negative (Negative); PH, Urine 6.5 (5.0-8.0); Protein,Urine Negative (Negative); Specific Gravity,Urine 1.025 (1.001-1.035); Urobilinogen,Urine <2.0 mg/dL (<2.0)
[2020-02-16 22:17] LABS: Amphetamine Screen,Urine Not Detected (NotDetected); Barbiturate Screen,Urine Not Detected (NotDetected); Benzodiazepines Screen,Urine Not Detected (NotDetected); Cocaine Screen,Urine Not Detected (NotDetected); Methadone Screen, Urine Not Detected (NotDetected); Opiate Screen,Urine Not Detected (NotDetected); Oxycodone Screen, Urine Not Detected (NotDetected); Phencyclidine Screen,Urine Not Detected (NotDetected); Tricyclic Antidepressant,Urine Not Detected (NotDetected); Urn Cannabinoid Scrn Not Detected (NotDetected)
[2020-02-16] MEDS ORDERED: KETOROLAC 15 MG/ML 1 ML VIAL IM STA (22:24)
[2020-02-16] MEDS ORDERED: ALPRAZolam 0.5 MG TAB PO STA (22:24)
--- NOTE | 2020-02-16 22:57 | ED ---
Psych HPI - General Chief Complaint: Psychiatric Symptoms Stated Complaint: Petition Time Seen by Provider: 02/16/20 20:50 Source: patient, police Mode of arrival: ambulatory - History of Present Illness Initial Comments: 19 yo female presenting today for chief complaint of suicidal ideation with no plan. Patient states she's been feeling depressed she states she struggles with anxiety. She states she had to affect her roommate and that is also stressing her out. Patient denies any suicidal attempt. She states she's had a slight headache today. She denies any focalized symptoms persist weakness sensation deficits visual changes she denies this being the worst headache of her lites are sudden onset. Patient states that he has struggled with headaches in the past. Patient otherwise states she has no other complaints she appears well she is nontoxic on arrival no acute distress cooperative. Patient states that police petitioned her but she was going to voluntarily come to the emergency department and check in - Related Data Home Medications Medication Instructions Recorded Confirmed Metoprolol Succinate (ER) [Toprol 25 mg PO DAILY 05/10/19 02/13/20 XL] Albuterol Sulfate [Ventolin HFA] 2 puff INHALATION RT-QID PRN 11/05/19 02/13/20 Pantoprazole [Protonix] 40 mg PO DAILY PRN 11/05/19 02/13/20 Medroxyprogesterone Acetate 150 mg IM Q90D 02/06/20 02/13/20 [Depo-Provera] busPIRone HCL [Buspar] 7.5 mg PO BID 02/06/20 02/13/20 metFORMIN HCL [Glucophage] 500 mg PO BID 02/06/20 02/13/20 Allergies Allergy/AdvReac Type Severity Reaction Status Date / Time cyclobenzaprine Allergy Severe Anaphylaxis Verified 02/13/20 22:58 [From Flexeril] amphetamine aspartate Allergy Rash/Hives Verified 02/13/20 22:58 [From Adderall] amphetamine sulfate Allergy Rash/Hives Verified 02/13/20 22:58 [From Adderall] dextroamphetamine saccharate Allergy Rash/Hives Verified 02/13/20 22:58 [From Adderall] dextroamphetamine sulfate Allergy Rash/Hives Verified 02/13/20 22:58 [From Adderall] methylphenidate HCl Allergy Rash/Hives Verified 02/13/20 22:58 [From [email or web address]] Review of Systems ROS Statement: Those systems with pertinent positive or pertinent negative responses have been documented in the HPI. ROS Other: All systems not noted in ROS Statement are negative. Past Medical History Past Medical History: Asthma, Diabetes Mellitus, Seizure Disorder, Syncope Additional Past Medical History / Comment(s): shoulder crepitus, asthma, heart palpitations History of Any Multi-Drug Resistant Organisms: None Reported Past Surgical History: No Surgical Hx Reported Past Anesthesia/Blood Transfusion Reactions: No Reported Reaction Additional Past Anesthesia/Blood Transfusion Reaction / Comment(s): pt stated has never had gen aa Past Psychological History: ADD/ADHD, Anxiety, Bipolar, Depression, PTSD Smoking Status: Former smoker Past Alcohol Use History: None Reported Past Drug Use History: None Reported - Past Family History Mother Additional Family Medical History / Comment(s): bipolar,depression ptsd Father History Unknown: Yes Additional Family Medical History / Comment(s): pt stated that "her grandfather was the [place] prostitute killer" General Exam - General Exam Comments Initial Comments: General: The patient is awake and alert, in no distress, and does not appear acutely ill. Eye: Pupils are equal, round and reactive to light, extra-ocular movements are intact. No nystagmus. There is normal conjunctiva bilaterally. No signs of icterus. Ears, nose, mouth and throat: There are moist mucous membranes and no oral lesions. Neck: The neck is supple, there is no tenderness or JVD. Cardiovascular: There is a regular rate and rhythm. No murmur, rub or gallop is appreciated. Respiratory: Lungs are clear to auscultation, respirations are non-labored, breath sounds are equal. No wheezes, stridor, rales, or rhonchi. Gastrointestinal: Soft, non-distended, non-tender abdomen without masses or organomegaly noted. There is no rebound or guarding present. Musculoskeletal: Normal ROM, no tenderness. Strength 5/5. Sensation intact. Pulses equal bilaterally 2+. Neurological: A&O x 3. CN II-XII intact, There are no obvious motor or sensory deficits. Coordination appears grossly intact. Speech is normal. Skin: Skin is warm and dry and no rashes or lesions are noted. Psychiatric: Cooperative, appropriate mood & affect, normal judgment. Limitations: no limitations Course Vital Signs 02/16/20 02/16/20 20:32 21:12 Temperature 99.2 F Pulse Rate 102 H Respiratory 18 16 Rate Blood Pressure 116/71 O2 Sat by Pulse 98 Oximetry Medical Decision Making - Medical Decision Making Patient medically clear for EPS evaluation. Patient is petitioned although she states that she was going to voluntarily sign in. Patient is suicidal she denies attempts she denies plan. Xanax in the emergency department for anxiety as well as toradol for headache. EPS evaluate patient psychiatrist recommends discharge as well as [facility] who states patient called earlier stating she was going to come to the ER because she was bored. Patient discharged appearing well. Safety plan in pace. - Lab Data Lab Results 02/16/20 02/16/20 Range/Units 21:45 21:45 Urine Color Yellow Urine Appearance Clear (Clear) Urine pH 6.5 (5.0-8.0) Ur Specific [place]worth 1.025 (1.001-1.035) Urine Protein Negative (Negative) Urine Glucose (UA) Negative (Negative) Urine Ketones Negative (Negative) Urine Blood Negative (Negative) Urine Nitrite Negative (Negative) Urine Bilirubin Negative (Negative) Urine Urobilinogen <2.0 (<2.0) mg/dL Ur Leukocyte Esterase Negative (Negative) Urine HCG, Qual Not Detected (Not Detectd) Urine Opiates Screen Not Detected (NotDetected) Ur Oxycodone Screen Not Detected (NotDetected) Urine Methadone Screen Not Detected (NotDetected) Ur Propoxyphene Screen Not Detected (NotDetected) Ur Barbiturates Screen Not Detected (NotDetected) U Tricyclic Antidepress Not Detected (NotDetected) Ur Phencyclidine Scrn Not Detected (NotDetected) Ur Amphetamines Screen Not Detected (NotDetected) U Methamphetamines Scrn Not Detected (NotDetected) U Benzodiazepines Scrn Not Detected (NotDetected) Urine Cocaine Screen Not Detected (NotDetected) U Marijuana (THC) Screen Not Detected (NotDetected) Disposition Clinical Impression: Depression Disposition: HOME SELF-CARE Condition: Good Instructions (If sedation given, give patient instructions): Depression (ED) Additional Instructions: Please use medication as discussed. Please follow-up with family doctor in the next 2 days. Please return to emergency room if the symptoms increase or worsen or for any other concerns. Is patient prescribed a controlled substance at d/c from ED?: No Referrals: [facility] [Primary Care Provider] - 1-2 days Time of Disposition: 23:18
[2020-02-16 23:54] VITALS: BP 127/86; PULSE 89; RESP 18; TEMP 98.7
== END 2020-02-16 23:38 | disposition home or self-care (01) ==
LOC: EC 20:19
DX: F31.9 Bipolar disorder, unspecified (principal); J45.909 Unspecified asthma, uncomplicated; F41.9 Anxiety disorder, unspecified; E11.9 Type 2 diabetes mellitus without complications; Z79.84 Long term (current) use of oral hypoglycemic drugs; Z79.899 Other long term (current) drug therapy; Z87.891 Personal history of nicotine dependence; Z88.8 Allergy status to other drugs, medicaments and biological substances
CPT/HCPCS: 82075; 81003; 81025; 80306; 99285; 96372; J1885

== ENCOUNTER 2020-02-21 21:27 | Emergency (ER) | payer OTHER ==
[2020-02-21 21:39] VITALS: RESP 18; TEMP 98.5
[2020-02-21] MEDS ORDERED: AMOXIC-POT CLAV 875MG STARTER PACK 2 TAB BTL PO STA (22:41)
[2020-02-21] MEDS ORDERED: AMOXIC-POT CLAV 875-125MG 1 EACH TAB PO STA (22:41)
--- NOTE | 2020-02-21 22:58 | XR ---
EXAMINATION TYPE: XR hand complete RT DATE OF EXAM: 02/21/2020 COMPARISON: NONE HISTORY: Cat bite TECHNIQUE: 3 views FINDINGS: Metacarpals are intact. I see no fracture nor dislocation. Joint spaces are normal. IMPRESSION: Negative right hand exam. No fracture.
--- NOTE | 2020-02-21 23:08 | ED ---
Neuro HPI - General Chief Complaint: Neuro Symptoms/Deficit Stated Complaint: Syncope Time Seen by Provider: 02/21/20 22:20 Source: patient Mode of arrival: EMS Limitations: no limitations - History of Present Illness Is the patient presenting with stroke symptoms?: No -: hour(s) Initial Comments: This is a 19-year-old female well-known to our facility coming in for evaluation of altered complaints she says she had near syncopal episode earlier in the day told other staff number she had a full syncopal syncopal patient is had multiple evaluations at this facility for syncope in the past. As well as admission. Patient not concerned about a syncopal event she is more concerned about Bite to right hand, patient has or from the cat since she was able to be able to watch her for IV behavior, this Is a kitten. Place: home Severity: mild Improves With: none Worsens With: none Treatments Prior to Arrival: none - Related Data Home Medications: Home Medications Medication Instructions Recorded Confirmed Metoprolol Succinate (ER) [Toprol 25 mg PO DAILY 05/10/19 02/13/20 XL] Albuterol Sulfate [Ventolin HFA] 2 puff INHALATION RT-QID PRN 11/05/19 02/13/20 Pantoprazole [Protonix] 40 mg PO DAILY PRN 11/05/19 02/13/20 Medroxyprogesterone Acetate 150 mg IM Q90D 02/06/20 02/13/20 [Depo-Provera] busPIRone HCL [Buspar] 7.5 mg PO BID 02/06/20 02/13/20 metFORMIN HCL [Glucophage] 500 mg PO BID 02/06/20 02/13/20 Allergies/Adverse Reactions: Allergies Allergy/AdvReac Type Severity Reaction Status Date / Time cyclobenzaprine Allergy Severe Anaphylaxis Verified 02/21/20 21:39 [From Flexeril] amphetamine aspartate Allergy Rash/Hives Verified 02/21/20 21:39 [From Adderall] amphetamine sulfate Allergy Rash/Hives Verified 02/21/20 21:39 [From Adderall] dextroamphetamine saccharate Allergy Rash/Hives Verified 02/21/20 21:39 [From Adderall] dextroamphetamine sulfate Allergy Rash/Hives Verified 02/21/20 21:39 [From Adderall] methylphenidate HCl Allergy Rash/Hives Verified 02/21/20 21:39 [From Concerta] Review of Systems ROS Statement: Those systems with pertinent positive or pertinent negative responses have been documented in the HPI. ROS Other: All systems not noted in ROS Statement are negative. General Exam - General Exam Comments Initial Comments: Right middle finger puncture wound, not bleeding Limitations: no limitations General appearance: alert, in no apparent distress Head exam: Present: atraumatic, normocephalic, normal inspection Eye exam: Present: normal appearance, PERRL, EOMI. Absent: scleral icterus, conjunctival injection, periorbital swelling ENT exam: Present: normal exam, mucous membranes moist Neck exam: Present: normal inspection. Absent: tenderness, meningismus, lymphadenopathy Respiratory exam: Present: normal lung sounds bilaterally. Absent: respiratory distress, wheezes, rales, rhonchi, stridor Cardiovascular Exam: Present: regular rate, normal rhythm, normal heart sounds. Absent: systolic murmur, diastolic murmur, rubs, gallop, clicks GI/Abdominal exam: Present: soft, normal bowel sounds. Absent: distended, t enderness, guarding, rebound, rigid Extremities exam: Present: normal inspection, full ROM, normal capillary refill. Absent: tenderness, pedal edema, joint swelling, calf tenderness Back exam: Present: normal inspection Neurological exam: Present: alert, oriented X3, CN II-XII intact Psychiatric exam: Present: normal affect, normal mood Skin exam: Present: warm, dry, intact, normal color. Absent: rash Stroke MDM - NIH Stroke Scale 1a. Level of Consciousness: (0) alert 1b. LOC Questions: (0) answers correctly 1c. LOC Commands: (0) performs tasks correctly 2. Best Gaze: (0) normal 3. Visual: (0) no visual loss 4. Facial Palsy: (0) normal symmetrical movement 5a. Motor Arm Left: (0) no drift 5b. Motor Arm Right: (0) no drift 6a. Motor Leg Left: (0) no drift 6b. Motor Leg Right: (0) no drift 7. Limb Ataxia: (0) absent 8. Sensory: (0) normal 9. Best Language: (0) no aphasia 10. Dysarthria: (0) normal 11. Extinction/Inattention: (0) no abnormality - Medical Decision Making 19-year-old female DF for evaluation, confounding admission complaint of basic coming in for Right today, patient will be placed on antibiotics tetanus is up-to-date and patient can be discharged - Radiology Data Radiology results: report reviewed (X-ray right hand is negative for fracture), image reviewed Past Medical History Past Medical History: Asthma, Diabetes Mellitus, Seizure Disorder, Syncope Additional Past Medical History / Comment(s): shoulder crepitus, asthma, heart palpitations History of Any Multi-Drug Resistant Organisms: None Reported Past Surgical History: No Surgical Hx Reported Past Anesthesia/Blood Transfusion Reactions: No Reported Reaction Additional Past Anesthesia/Blood Transfusion Reaction / Comment(s): pt stated has never had gen aa Past Psychological History: ADD/ADHD, Anxiety, Bipolar, Depression, PTSD Smoking Status: Former smoker Past Alcohol Use History: None Reported Past Drug Use History: None Reported - Past Family History Mother Additional Family Medical History / Comment(s): bipolar,depression ptsd Father History Unknown: Yes Additional Family Medical History / Comment(s): pt stated that "her grandfather was the [place] prostitute killer" Course Vital Signs 02/21/20 02/21/20 21:35 22:40 Temperature 98.5 F Pulse Rate 102 H 75 Respiratory 18 18 Rate Blood Pressure 125/79 196/70 O2 Sat by Pulse 99 94 L Oximetry - Reevaluation(s) Reevaluation #1: 02/21/20 23:19 Medical records reviewed Reevaluation #2: 02/21/20 23:19 Patient has no specific pain no active bleeding, wound is puncture, place on antibiotics here in the ER no need up-to-date tetanus Reevaluation #3: 02/21/20 23:20 Patient is informed of results and questions answered Disposition Clinical Impression: Cat bite of finger Disposition: HOME SELF-CARE Condition: Good Instructions (If sedation given, give patient instructions): Animal Bite (ED) Is patient prescribed a controlled substance at d/c from ED?: No Referrals: [facility] [Primary Care Provider] - 1-2 days
[2020-02-21 23:47] VITALS: BP 125/79; PULSE 98
== END 2020-02-21 23:47 | disposition home or self-care (01) ==
LOC: EC 21:27
DX: S61.252A Open bite of right middle finger without damage to nail, initial encounter (principal); R55 Syncope and collapse; J45.909 Unspecified asthma, uncomplicated; E11.9 Type 2 diabetes mellitus without complications; F41.9 Anxiety disorder, unspecified; F31.9 Bipolar disorder, unspecified; F43.10 Post-traumatic stress disorder, unspecified; Z79.3 Long term (current) use of hormonal contraceptives; Z79.51 Long term (current) use of inhaled steroids; Z79.84 Long term (current) use of oral hypoglycemic drugs; Z79.899 Other long term (current) drug therapy; Y93.89 Activity, other specified; Z87.891 Personal history of nicotine dependence; Z88.8 Allergy status to other drugs, medicaments and biological substances; W55.01XA Bitten by cat, initial encounter; Y92.89 Other specified places as the place of occurrence of the external cause
CPT/HCPCS: 99284

== ENCOUNTER 2020-02-23 17:37 | Emergency (ER) | payer OTHER ==
[2020-02-23 18:07] VITALS: BP 120/73; PULSE 108; RESP 20; TEMP 99.1
--- NOTE | 2020-02-23 18:13 | ED ---
Recheck HPI - General Chief Complaint: Recheck/Abnormal Lab/Rx Stated Complaint: cat bite is getting worse Source: patient Mode of arrival: ambulatory Limitations: no limitations - History of Present Illness Initial Comments: Patient is 19-year-old male presenting to emergency Department with a chief complaint of a cat bite. Patient reports this occurred 3 days ago after she a ttempted to obtain a stray cat. Patient reports she had a puncture wound on the palmar aspect of the right second digit. Patient reports a 4 she has taken 2 days of the Augmentin. Patient reports she has been able to squeeze some pus out of the puncture wound. Patient states there is slight erythema at the distal phalange of the second digit. She denies any night sweats fevers or chills. - Related Data Home Medications Medication Instructions Recorded Confirmed Metoprolol Succinate (ER) [Toprol 25 mg PO DAILY 05/10/19 02/13/20 XL] Albuterol Sulfate [Ventolin HFA] 2 puff INHALATION RT-QID PRN 11/05/19 02/13/20 Pantoprazole [Protonix] 40 mg PO DAILY PRN 11/05/19 02/13/20 Medroxyprogesterone Acetate 150 mg IM Q90D 02/06/20 02/13/20 [Depo-Provera] busPIRone HCL [Buspar] 7.5 mg PO BID 02/06/20 02/13/20 metFORMIN HCL [Glucophage] 500 mg PO BID 02/06/20 02/13/20 Previous Rx's Medication Instructions Recorded Amoxic-Pot Clav 875-125Mg 1 tab PO Q12HR #20 tablet 02/21/20 [Augmentin 875-125] Allergies Allergy/AdvReac Type Severity Reaction Status Date / Time cyclobenzaprine Allergy Severe Anaphylaxis Verified 02/23/20 18:08 [From Flexeril] amphetamine aspartate Allergy Rash/Hives Verified 02/23/20 18:08 [From Adderall] amphetamine sulfate Allergy Rash/Hives Verified 02/23/20 18:08 [From Adderall] dextroamphetamine saccharate Allergy Rash/Hives Verified 02/23/20 18:08 [From Adderall] dextroamphetamine sulfate Allergy Rash/Hives Verified 02/23/20 18:08 [From Adderall] methylphenidate HCl Allergy Rash/Hives Verified 02/23/20 18:08 [From [employer]] Review of Systems ROS Statement: Those systems with pertinent positive or pertinent negative responses have been documented in the HPI. ROS Other: All systems not noted in ROS Statement are negative. Past Medical History Past Medical History: Asthma, Diabetes Mellitus, Syncope Additional Past Medical History / Comment(s): shoulder crepitus, asthma, heart palpitations History of Any Multi-Drug Resistant Organisms: None Reported Past Surgical History: No Surgical Hx Reported Past Anesthesia/Blood Transfusion Reactions: No Reported Reaction Additional Past Anesthesia/Blood Transfusion Reaction / Comment(s): pt stated h as never had gen aa Past Psychological History: ADD/ADHD, Anxiety, Bipolar, Depression, PTSD Smoking Status: Former smoker Past Alcohol Use History: None Reported Past Drug Use History: None Reported - Past Family History Mother Additional Family Medical History / Comment(s): bipolar,depression ptsd Father History Unknown: Yes Additional Family Medical History / Comment(s): pt stated that "her grandfather was the [place] prostitute killer" General Exam Limitations: no limitations General appearance: alert, in no apparent distress Head exam: Present: atraumatic, normocephalic, normal inspection Eye exam: Present: normal appearance, PERRL, EOMI Pupils: Present: normal accommodation ENT exam: Present: normal exam, normal oropharynx, mucous membranes moist, TM's normal bilaterally, normal external ear exam Neck exam: Present: normal inspection, full ROM. Absent: tenderness Respiratory exam: Present: normal lung sounds bilaterally. Absent: respiratory distress, wheezes, rales Cardiovascular Exam: Present: regular rate, normal rhythm, normal heart sounds Extremities exam: Present: full ROM, tenderness (Tenderness at the bite site.), normal capillary refill, other (+2 dorsalis pedis and posterior tibials bilaterally. +2 ulnar and radial repulsive bilateral.). Absent: normal inspection (Localized tenderness on the palmar aspect of the distal phalangeal of the right second digit. No discharge noted at this time. It does resemble a feline at this time. Mild surrounding erythema) Back exam: Present: normal inspection, full ROM. Absent: tenderness, CVA tenderness (R), CVA tenderness (L) Neurological exam: Present: alert, oriented X3 Psychiatric exam: Present: normal affect, normal mood Skin exam: Present: warm, dry, intact, normal color Course Vital Signs 02/23/20 18:03 Temperature 99.1 F Pulse Rate 108 H Respiratory 20 Rate Blood Pressure 120/73 O2 Sat by Pulse 98 Oximetry Medical Decision Making - Medical Decision Making Patient is a 19-year-old male presenting to the emergency room with a chief complaint of a cabinet. On physical examination, there is a small area that appears to be like an underlying abscess near the site of the Eye. There is no overlying cellulitic skin changes. Dr. Farley recommended a small incision to allow for drainage. Small laceration was performed measuring approximately 3 mm. Digital block was performed prior to this. Small amounts of blood were removed. Patient tolerated procedure well. Patient was advised to continue taking antibiotic. No night sweats fevers or chills. Return parameters were thoroughly discussed the patient was understanding and agreeable. Case discussed with physician. Disposition Clinical Impression: Cat bite Disposition: HOME SELF-CARE Condition: Stable Instructions (If sedation given, give patient instructions): Abscess (ED) Additional Instructions: Soak your finger in warm water. Continue taking the Augmentin. Return to emergency department if symptoms worsen. Is patient prescribed a controlled substance at d/c from ED?: No Referrals: [facility] [Primary Care Provider] - 1-2 days Time of Disposition: 19:20
[2020-02-23] MEDS ORDERED: LIDOCAINE 1% INJ 10MG/ML (20 ML MDV) SQ ONE (18:40)
== END 2020-02-23 19:32 | disposition home or self-care (01) ==
LOC: EC 17:37
DX: S61.230A Puncture wound without foreign body of right index finger without damage to nail, initial encounter (principal); J45.909 Unspecified asthma, uncomplicated; E11.9 Type 2 diabetes mellitus without complications; F41.9 Anxiety disorder, unspecified; F31.9 Bipolar disorder, unspecified; F90.9 Attention-deficit hyperactivity disorder, unspecified type; Z79.84 Long term (current) use of oral hypoglycemic drugs; Z79.899 Other long term (current) drug therapy; Z88.8 Allergy status to other drugs, medicaments and biological substances; Z87.891 Personal history of nicotine dependence; W55.01XA Bitten by cat, initial encounter
CPT/HCPCS: 99283; 10060; J2001

== ENCOUNTER 2020-03-10 00:27 | Emergency (ER) | payer OTHER ==
--- NOTE | 2020-03-10 01:11 | ED ---
Psych HPI - General Source: patient Mode of arrival: ambulatory <Yvrose Ascencio - Last Filed: 03/10/20 01:43> <Jb Castle - Last Filed: 03/10/20 08:48> - General Chief Complaint: Psychiatric Symptoms Stated Complaint: Mental health Time Seen by Provider: 03/10/20 00:30 - History of Present Illness Initial Comments: Sintia is a 19yo F who presents to the ER today with PD for evaluation of worsening suicidal thoughts. Patient states that she has had suicidal thoughts for years, she has been seen here and has established care with [facility], she is scheduled to see a psychiatrist tomorrow. Patient states that tonight her suicidal thoughts became overwhelming so she called 911. (Yvrose Ascencio) - Related Data Home Medications Medication Instructions Recorded Confirmed Metoprolol Succinate (ER) [Toprol 25 mg PO DAILY 05/10/19 03/10/20 XL] Albuterol Sulfate [Ventolin HFA] 2 puff INHALATION RT-QID PRN 11/05/19 03/10/20 Pantoprazole [Protonix] 40 mg PO DAILY 11/05/19 03/10/20 Medroxyprogesterone Acetate 150 mg IM Q90D 02/06/20 03/10/20 [Depo-Provera] busPIRone HCL [Buspar] 7.5 mg PO BID 02/06/20 03/10/20 metFORMIN HCL [Glucophage] 500 mg PO BID 02/06/20 03/10/20 Cholecalciferol (Vitamin D3) 125 mcg PO DAILY 03/10/20 03/10/20 [Vitamin D3] Diclofenac Sodium [Voltaren] 50 mg PO BID 03/10/20 03/10/20 Escitalopram [Lexapro] 20 mg PO DAILY 03/10/20 03/10/20 [place] Carbonate 600 mg PO HS 03/10/20 03/10/20 Naproxen [Naprosyn] 500 mg PO BID PRN 03/10/20 03/10/20 OLANZapine [ZyPREXA] 10 mg PO HS 03/10/20 03/10/20 Allergies Allergy/AdvReac Type Severity Reaction Status Date / Time cyclobenzaprine Allergy Severe Anaphylaxis Verified 03/10/20 07:44 [From Flexeril] amphetamine aspartate Allergy Rash/Hives Verified 03/10/20 07:44 [From Adderall] amphetamine sulfate Allergy Rash/Hives Verified 03/10/20 07:44 [From Adderall] dextroamphetamine saccharate Allergy Rash/Hives Verified 03/10/20 07:44 [From Adderall] dextroamphetamine sulfate Allergy Rash/Hives Verified 03/10/20 07:44 [From Adderall] methylphenidate HCl Allergy Rash/Hives Verified 03/10/20 07:44 [From Concerta] Review of Systems ROS Other: All systems not noted in ROS Statement are negative. <Yvrose Ascencio - Last Filed: 03/10/20 01:43> ROS Other: All systems not noted in ROS Statement are negative. <Jb Castle - Last Filed: 03/10/20 08:48> ROS Statement: Those systems with pertinent positive or pertinent negative responses have been documented in the HPI. Past Medical History Past Medical History: Asthma, Diabetes Mellitus, Syncope Additional Past Medical History / Comment(s): shoulder crepitus, asthma, heart palpitations History of Any Multi-Drug Resistant Organisms: None Reported Past Surgical History: No Surgical Hx Reported Past Anesthesia/Blood Transfusion Reactions: No Reported Reaction Additional Past Anesthesia/Blood Transfusion Reaction / Comment(s): pt stated has never had gen aa Past Psychological History: ADD/ADHD, Anxiety, Bipolar, Depression, PTSD Smoking Status: Former smoker Past Alcohol Use History: None Reported Past Drug Use History: None Reported - Past Family History Mother Additional Family Medical History / Comment(s): bipolar,depression ptsd Father History Unknown: Yes Additional Family Medical History / Comment(s): pt stated that "her grandfather was the [place] prostitute killer" <Yvrose Ascencio P - Last Filed: 03/10/20 01:43> General Exam Limitations: no limitations <Yvrose Ascencio P - Last Filed: 03/10/20 01:43> - General Exam Comments Initial Comments: Physical Exam GENERAL: Patient is well-developed and well-nourished. Patient is nontoxic and well-hydrated and is in no distress. HENT: Normocephalic, Atraumatic. EYES: PERRL, EOMI PULMONARY: Unlabored respirations. CARDIOVASCULAR: RRR Warm and well perfused extremities ABDOMEN: Non-distended SKIN: No rashes or bruising : Deferred NEUROLOGIC: Alert and oriented Normal speech Normal gait MUSCULOSKELETAL: Moving all extremities with no apparent injury PSYCHIATRIC: Suicidal thoughts (Yvrose Ascencio) Course Vital Signs 03/10/20 03/10/20 00:32 06:00 Temperature 100 F H 98.2 F Pulse Rate 119 H 94 Respiratory 20 16 Rate Blood Pressure 133/76 109/57 O2 Sat by Pulse 97 97 Oximetry Medical Decision Making <Jb Castle - Last Filed: 03/10/20 08:48> - Medical Decision Making [facility] will follow-up the patient tomorrow. (Jb Castle) - Lab Data Lab Results 03/10/20 03/10/20 Range/Units 00:57 00:57 Urine Color Yellow Urine Appearance Turbid H (Clear) Urine pH 5.5 (5.0-8.0) Ur Specific [place] 1.031 (1.001-1.035) Urine Protein Trace H (Negative) Urine Glucose (UA) Negative (Negative) Urine Ketones Negative (Negative) Urine Blood Large H (Negative) Urine Nitrite Negative (Negative) Urine Bilirubin Negative (Negative) Urine Urobilinogen <2.0 (<2.0) mg/dL Ur Leukocyte Esterase Small H (Negative) Urine RBC 34 H (0-5) /hpf Urine WBC 4 (0-5) /hpf Ur Squamous Epith Cells 14 H (0-4) /hpf Urine Bacteria Rare H (None) /hpf Hyaline Casts 1 (0-2) /lpf Urine Mucus Many H (None) /hpf Urine HCG, Qual Not Detected (Not Detectd) Urine Opiates Screen Not Detected (NotDetected) Ur Oxycodone Screen Not Detected (NotDetected) Urine Methadone Screen Not Detected (NotDetected) Ur Propoxyphene Screen Not Detected (NotDetected) Ur Barbiturates Screen Not Detected (NotDetected) U Tricyclic Antidepress Not Detected (NotDetected) Ur Phencyclidine Scrn Not Detected (NotDetected) Ur Amphetamines Screen Not Detected (NotDetected) U Methamphetamines Scrn Not Detected (NotDetected) U Benzodiazepines Scrn Not Detected (NotDetected) Urine Cocaine Screen Not Detected (NotDetected) U Marijuana (THC) Screen Not Detected (NotDetected) Disposition <Yvrose Ascencio - Last Filed: 03/10/20 01:43> Is patient prescribed a controlled substance at d/c from ED?: No Time of Disposition: 08:48 <Jb Castle - Last Filed: 03/10/20 08:48> Clinical Impression: Suicidal thoughts Disposition: HOME SELF-CARE Condition: Good Instructions (If sedation given, give patient instructions): Suicide Prevention (ED), Depression (ED) Additional Instructions: Patient is to follow up with [facility] tomorrow Referrals: [facility] [Primary Care Provider] - 1-2 days
[2020-03-10 01:13] LABS: Appearance,Urine Turbid (Clear); Bacteria,Urine Rare /hpf; Bilirubin,Urine Negative (Negative); Blood,Urine Large (Negative); Color,Urine Yellow; Glucose,Urine (UA) Negative (Negative); Hyaline Casts,Urine 1 /lpf (0-2); Ketones,Urine Negative (Negative); Leukocyte Esterase,Urine Small (Negative); Mucus,Urine Many /hpf; Nitrite,Urine Negative (Negative); PH, Urine 5.5 (5.0-8.0); Protein,Urine Trace (Negative); RBC,Urine 34 /hpf (0-5); Specific Gravity,Urine 1.031 (1.001-1.035); Squamous Epithelial Cell,Urine 14 /hpf (0-4); Urobilinogen,Urine <2.0 mg/dL (<2.0); WBC,Urine 4 /hpf (0-5)
[2020-03-10] MEDS ORDERED: ACETAMINOPHEN TAB 325 MG TAB PO STA (01:16)
[2020-03-10 01:26] LABS: Amphetamine Screen,Urine Not Detected (NotDetected); Barbiturate Screen,Urine Not Detected (NotDetected); Benzodiazepines Screen,Urine Not Detected (NotDetected); Cocaine Screen,Urine Not Detected (NotDetected); Methadone Screen, Urine Not Detected (NotDetected); Opiate Screen,Urine Not Detected (NotDetected); Oxycodone Screen, Urine Not Detected (NotDetected); Phencyclidine Screen,Urine Not Detected (NotDetected); Tricyclic Antidepressant,Urine Not Detected (NotDetected); Urn Cannabinoid Scrn Not Detected (NotDetected)
[2020-03-10 06:07] VITALS: BP 109/57; PULSE 94; RESP 16; TEMP 98.2
== END 2020-03-10 09:04 | disposition home or self-care (01) ==
LOC: EC 00:27
DX: R45.851 Suicidal ideations (principal); J45.909 Unspecified asthma, uncomplicated; E11.9 Type 2 diabetes mellitus without complications; F41.9 Anxiety disorder, unspecified; F32.9 Major depressive disorder, single episode, unspecified; Z79.899 Other long term (current) drug therapy; Z79.1 Long term (current) use of non-steroidal anti-inflammatories (NSAID); Z79.3 Long term (current) use of hormonal contraceptives; Z79.84 Long term (current) use of oral hypoglycemic drugs; Z88.8 Allergy status to other drugs, medicaments and biological substances; Z87.891 Personal history of nicotine dependence
CPT/HCPCS: 80306; 81001; 81025; 99285

== ENCOUNTER 2020-08-02 23:57 | Emergency (ER) | payer OTHER ==
--- NOTE | 2020-08-03 00:30 | ED ---
Syncope HPI - General Chief Complaint: Syncope Stated Complaint: Syncope Time Seen by Provider: 08/03/20 00:01 Source: patient, EMS Mode of arrival: EMS Limitations: no limitations - Related Data Home Medications Medication Instructions Recorded Confirmed Metoprolol Succinate (ER) [Toprol 25 mg PO DAILY 05/10/19 03/10/20 XL] Albuterol Sulfate [Ventolin HFA] 2 puff INHALATION RT-QID PRN 11/05/19 03/10/20 Pantoprazole [Protonix] 40 mg PO DAILY 11/05/19 03/10/20 Medroxyprogesterone Acetate 150 mg IM Q90D 02/06/20 03/10/20 [Depo-Provera] busPIRone HCL [Buspar] 7.5 mg PO BID 02/06/20 03/10/20 metFORMIN HCL [Glucophage] 500 mg PO BID 02/06/20 03/10/20 Cholecalciferol (Vitamin D3) 125 mcg PO DAILY 03/10/20 03/10/20 [Vitamin D3] Diclofenac Sodium [Voltaren] 50 mg PO BID 03/10/20 03/10/20 Escitalopram [Lexapro] 20 mg PO DAILY 03/10/20 03/10/20 [place] Carbonate 600 mg PO HS 03/10/20 03/10/20 Naproxen [Naprosyn] 500 mg PO BID PRN 03/10/20 03/10/20 OLANZapine [ZyPREXA] 10 mg PO HS 03/10/20 03/10/20 Allergies Allergy/AdvReac Type Severity Reaction Status Date / Time cyclobenzaprine Allergy Severe Anaphylaxis Verified 03/10/20 07:44 [From Flexeril] amphetamine aspartate Allergy Rash/Hives Verified 03/10/20 07:44 [From Adderall] amphetamine sulfate Allergy Rash/Hives Verified 03/10/20 07:44 [From Adderall] dextroamphetamine saccharate Allergy Rash/Hives Verified 03/10/20 07:44 [From Adderall] dextroamphetamine sulfate Allergy Rash/Hives Verified 03/10/20 07:44 [From Adderall] methylphenidate HCl Allergy Rash/Hives Verified 03/10/20 07:44 [From Concerta] Review of Systems ROS Statement: Those systems with pertinent positive or pertinent negative responses have been documented in the HPI. ROS Other: All systems not noted in ROS Statement are negative. Past Medical History Past Medical History: Asthma, Diabetes Mellitus, Syncope Additional Past Medical History / Comment(s): shoulder crepitus, asthma, heart palpitations History of Any Multi-Drug Resistant Organisms: None Reported Past Surgical History: No Surgical Hx Reported Past Anesthesia/Blood Transfusion Reactions: No Reported Reaction Additional Past Anesthesia/Blood Transfusion Reaction / Comment(s): pt stated has never had gen aa Past Psychological History: ADD/ADHD, Anxiety, Bipolar, Depression, PTSD Smoking Status: Former smoker Past Alcohol Use History: None Reported Past Drug Use History: None Reported - Past Family History Mother Additional Family Medical History / Comment(s): bipolar,depression ptsd Father History Unknown: Yes Additional Family Medical History / Comment(s): pt stated that "her grandfather was the [place] prostitute killer" General Exam Limitations: no limitations Course Vital Signs 08/03/20 00:11 Temperature 98.7 F Pulse Rate 101 H Respiratory 18 Rate Blood Pressure 112/88 O2 Sat by Pulse 100 Oximetry EKG Findings - EKG Results: EKG: interpreted by DC VERMA, sinus rhythm (Rate 89 bpm), normal axis, normal QRS, normal ST/T, no acute changes - RI, Pacemaker, Normal: Normal tracing: normal tracing Medical Decision Making - Lab Data Result diagrams: 08/03/20 00:48 08/03/20 00:48 Lab Results 08/03/20 08/03/20 08/03/20 Range/Units 00:48 00:48 00:48 WBC 10.7 (4.0-11.0) k/uL RBC 4.84 (3.80-5.40) m/uL Hgb 14.1 (11.4-16.0) gm/dL Hct 41.7 (34.0-46.0) % MCV 86.3 (80.0-100.0) fL MCH 29.1 (25.0-35.0) pg MCHC 33.8 (31.0-37.0) g/dL RDW 13.1 (11.5-15.5) % Plt Count 322 (150-450) k/uL MPV 7.1 Neutrophils % 72 % Lymphocytes % 20 % Monocytes % 5 % Eosinophils % 1 % Basophils % 1 % Neutrophils # 7.7 (1.3-7.7) k/uL Lymphocytes # 2.1 (1.0-4.8) k/uL Monocytes # 0.5 (0-1.0) k/uL Eosinophils # 0.1 (0-0.7) k/uL Basophils # 0.1 (0-0.2) k/uL Sodium 140 (137-145) mmol/L Potassium 4.4 (3.5-5.1) mmol/L Chloride 103 (98-107) mmol/L Carbon Dioxide 29 (22-30) mmol/L Anion Gap 8 mmol/L BUN 13 (7-17) mg/dL Creatinine 0.71 (0.52-1.04) mg/dL Est GFR (CKD-EPI)AfAm >90 (>60 ml/min/1.73 sqM) Est GFR (CKD-EPI)NonAf >90 (>60 ml/min/1.73 sqM) Glucose 102 H (74-99) mg/dL Calcium 9.9 (8.4-10.2) mg/dL Troponin I <0.012 (0.000-0.034) ng/mL Urine HCG, Qual (Not Detectd) 08/03/20 Range/Units 01:12 WBC (4.0-11.0) k/uL RBC (3.80-5.40) m/uL Hgb (11.4-16.0) gm/dL Hct (34.0-46.0) % MCV (80.0-100.0) fL MCH (25.0-35.0) pg MCHC (31.0-37.0) g/dL RDW (11.5-15.5) % Plt Count (150-450) k/uL MPV Neutrophils % % Lymphocytes % % Monocytes % % Eosinophils % % Basophils % % Neutrophils # (1.3-7.7) k/uL Lymphocytes # (1.0-4.8) k/uL Monocytes # (0-1.0) k/uL Eosinophils # (0-0.7) k/uL Basophils # (0-0.2) k/uL Sodium (137-145) mmol/L Potassium (3.5-5.1) mmol/L Chloride (98-107) mmol/L Carbon Dioxide (22-30) mmol/L Anion Gap mmol/L BUN (7-17) mg/dL Creatinine (0.52-1.04) mg/dL Est GFR (CKD-EPI)AfAm (>60 ml/min/1.73 sqM) Est GFR (CKD-EPI)NonAf (>60 ml/min/1.73 sqM) Glucose (74-99) mg/dL Calcium (8.4-10.2) mg/dL Troponin I (0.000-0.034) ng/mL Urine HCG, Qual Not Detected (Not Detectd) Disposition Clinical Impression: Syncope Disposition: HOME SELF-CARE Condition: Good Instructions (If sedation given, give patient instructions): Syncope (ED) Is patient prescribed a controlled substance at d/c from ED?: No Referrals: [facility] [Primary Care Provider] - 1-2 days
[2020-08-03 01:09] LABS: Basophils # (A) 0.1 k/uL (0-0.2); Basophils % (A) 1 %; Eosinophils # (A) 0.1 k/uL (0-0.7); Eosinophils % (A) 1 %; HCT 41.7 % (34.0-46.0); HGB 14.1 gm/dL (11.4-16.0); Lymphocytes # (A) 2.1 k/uL (1.0-4.8); Lymphocytes % (A) 20 %; MCH 29.1 pg (25.0-35.0); MCHC 33.8 g/dL (31.0-37.0); MCV 86.3 fL (80.0-100.0); Mean Platelet Volume 7.1; Monocytes # (A) 0.5 k/uL (0-1.0); Monocytes % (A) 5 %; Neutrophils # (A) 7.7 k/uL (1.3-7.7); Neutrophils % (A) 72 %; Platelet Count 322 k/uL (150-450); RBC 4.84 m/uL (3.80-5.40); RDW 13.1 % (11.5-15.5); WBC 10.7 k/uL (4.0-11.0)
[2020-08-03 01:20] LABS: African American GFR (CKD) >90 (>60 ml/min/1.73 sqM); Anion Gap 8 mmol/L; Blood Urea Nitrogen 13 mg/dL (7-17); Calcium 9.9 mg/dL (8.4-10.2); Carbon Dioxide 29 mmol/L (22-30); Chloride 103 mmol/L (98-107); Glucose 102 mg/dL (74-99); Non-African American GFR(CKD) >90 (>60 ml/min/1.73 sqM); Potassium 4.4 mmol/L (3.5-5.1); Sodium 140 mmol/L (137-145)
[2020-08-03 02:08] VITALS: BP 108/83; PULSE 87; RESP 20; TEMP 98.8
== END 2020-08-03 02:07 | disposition home or self-care (01) ==
LOC: EC 23:57
DX: R55 Syncope and collapse (principal); J45.909 Unspecified asthma, uncomplicated; E11.9 Type 2 diabetes mellitus without complications; F41.9 Anxiety disorder, unspecified; F32.9 Major depressive disorder, single episode, unspecified; Z87.891 Personal history of nicotine dependence
CPT/HCPCS: 36415; 80048; 81025; 84484; 85025; 93005; 99284

== ENCOUNTER 2020-08-29 02:43 | Emergency (ER) | payer OTHER ==
[2020-08-29 02:46] VITALS: PULSE 98; RESP 18; TEMP 98.1
--- NOTE | 2020-08-29 02:54 | ED ---
Syncope HPI - General Chief Complaint: Fall Stated Complaint: Fall Source: patient, EMS, RN notes reviewed, old records reviewed Mode of arrival: EMS Limitations: no limitations - History of Present Illness MD Complaint: loss of consciousness, felt faint, collapsed -: minutes(s) Prodromal Symptoms: headache -: second(s) Witnessed: no Injuries Sustained Associated with Event: None Current Symptoms: back to baseline History: previous syncopal episode Context: at rest Treatments Prior to Arrival: none - Related Data Home Medications Medication Instructions Recorded Confirmed Metoprolol Succinate (ER) [Toprol 25 mg PO DAILY 05/10/19 03/10/20 XL] Albuterol Sulfate [Ventolin HFA] 2 puff INHALATION RT-QID PRN 11/05/19 03/10/20 Pantoprazole [Protonix] 40 mg PO DAILY 11/05/19 03/10/20 Medroxyprogesterone Acetate 150 mg IM Q90D 02/06/20 03/10/20 [Depo-Provera] busPIRone HCL [Buspar] 7.5 mg PO BID 02/06/20 03/10/20 metFORMIN HCL [Glucophage] 500 mg PO BID 02/06/20 03/10/20 Cholecalciferol (Vitamin D3) 125 mcg PO DAILY 03/10/20 03/10/20 [Vitamin D3] Diclofenac Sodium [Voltaren] 50 mg PO BID 03/10/20 03/10/20 Escitalopram [Lexapro] 20 mg PO DAILY 03/10/20 03/10/20 [place] Carbonate 600 mg PO HS 03/10/20 03/10/20 Naproxen [Naprosyn] 500 mg PO BID PRN 03/10/20 03/10/20 OLANZapine [ZyPREXA] 10 mg PO HS 03/10/20 03/10/20 Allergies Allergy/AdvReac Type Severity Reaction Status Date / Time cyclobenzaprine Allergy Severe Anaphylaxis Verified 03/10/20 07:44 [From Flexeril] amphetamine aspartate Allergy Rash/Hives Verified 03/10/20 07:44 [From Adderall] amphetamine sulfate Allergy Rash/Hives Verified 03/10/20 07:44 [From Adderall] dextroamphetamine saccharate Allergy Rash/Hives Verified 03/10/20 07:44 [From Adderall] dextroamphetamine sulfate Allergy Rash/Hives Verified 03/10/20 07:44 [From Adderall] methylphenidate HCl Allergy Rash/Hives Verified 03/10/20 07:44 [From Concerta] Review of Systems ROS Statement: Those systems with pertinent positive or pertinent negative responses have been documented in the HPI. ROS Other: All systems not noted in ROS Statement are negative. Past Medical History Past Medical History: Asthma, Diabetes Mellitus, Syncope Additional Past Medical History / Comment(s): shoulder crepitus, asthma, heart palpitations History of Any Multi-Drug Resistant Organisms: None Reported Past Surgical History: No Surgical Hx Reported Past Anesthesia/Blood Transfusion Reactions: No Reported Reaction Additional Past Anesthesia/Blood Transfusion Reaction / Comment(s): pt stated has never had gen aa Past Psychological History: ADD/ADHD, Anxiety, Bipolar, Depression, PTSD Smoking Status: Former smoker Past Alcohol Use History: None Reported Past Drug Use History: None Reported - Past Family History Mother Additional Family Medical History / Comment(s): bipolar,depression ptsd Father History Unknown: Yes Additional Family Medical History / Comment(s): pt stated that "her grandfather was the [place] prostitute killer" General Exam Limitations: no limitations General appearance: alert, in no apparent distress Head exam: Present: atraumatic, normocephalic, normal inspection Eye exam: Present: normal appearance, PERRL, EOMI. Absent: scleral icterus, conjunctival injection, periorbital swelling ENT exam: Present: normal exam, mucous membranes moist Neck exam: Present: normal inspection. Absent: tenderness, meningismus, lymphadenopathy Respiratory exam: Present: normal lung sounds bilaterally. Absent: respiratory distress, wheezes, rales, rhonchi, stridor Cardiovascular Exam: Present: regular rate, normal rhythm, normal heart sounds. Absent: systolic murmur, diastolic murmur, rubs, gallop, clicks GI/Abdominal exam: Present: soft, normal bowel sounds. Absent: distended, tenderness, guarding, rebound, rigid Extremities exam: Present: normal inspection, full ROM, normal capillary refill. Absent: tenderness, pedal edema, joint swelling, calf tenderness Back exam: Present: normal inspection Neurological exam: Present: alert, oriented X3, CN II-XII intact Psychiatric exam: Present: normal affect, normal mood Skin exam: Present: warm, dry, intact, normal color. Absent: rash Course Vital Signs 08/29/20 08/29/20 02:44 03:56 Temperature 98.1 F Pulse Rate 98 98 Respiratory 18 18 Rate Blood Pressure 150/79 127/67 O2 Sat by Pulse 99 100 Oximetry - Reevaluation(s) Reevaluation #1: Medical record is reviewed Patient symptoms are significantly improved here in the emergency department Patient family informed of results, questions answered EKG Findings - EKG Comments: EKG Findings:: EKG is sinus rhythm 84 [place] 136 QRS 82 QTC 390 Disposition Clinical Impression: Pre-syncope, Syncope Disposition: HOME SELF-CARE Condition: Good Instructions (If sedation given, give patient instructions): Syncope (ED) Is patient prescribed a controlled substance at d/c from ED?: No Referrals: None,Stated [REFERRING] - 1-2 days
[2020-08-29] MEDS ORDERED: IBUPROFEN 800 MG TAB PO STA (03:07)
[2020-08-29] MEDS ORDERED: PROCHLORPERAZINE 10 MG TAB PO STA (03:07)
[2020-08-29] MEDS ORDERED: diphenhydrAMINE 50 MG CAP PO STA (03:07)
[2020-08-29 03:56] VITALS: BP 127/67
== END 2020-08-29 04:01 | disposition home or self-care (01) ==
LOC: EC 02:43
DX: R55 Syncope and collapse (principal); J45.909 Unspecified asthma, uncomplicated; E11.9 Type 2 diabetes mellitus without complications; F41.9 Anxiety disorder, unspecified; F32.9 Major depressive disorder, single episode, unspecified; F90.9 Attention-deficit hyperactivity disorder, unspecified type; Z87.891 Personal history of nicotine dependence; Z79.84 Long term (current) use of oral hypoglycemic drugs; Z79.51 Long term (current) use of inhaled steroids; Z79.899 Other long term (current) drug therapy
CPT/HCPCS: 93005; 99284; S0183

== ENCOUNTER 2021-04-16 07:15 | Day surgery (SDC) | payer OTHER ==
[2021-04-09 16:15] VITALS: BMI 45.5
[~2021-04-16 07:15] MED LIST: SODIUM CHLORIDE 0.9% 1,000 ML IV SCH
[2021-04-16 08:16] VITALS: BP 161/96; PULSE 108; RESP 18
--- NOTE | 2021-04-21 18:26 | P.EPPROC ---
- EP Procedure Note Electrophysiology Procedure Note: Diagnosis Recurrent syncope Twelve-lead EKG Sinus rhythm normal HI narrow QRS normal ST segments no epsilon waves no delta waves normal QT interval Tilt table test Baseline blood pressure 147/84 mmHg Baseline heart rate 104 beats a minute Patient was tilted upright and I'll of 70 per protocol She felt lightheaded with change in position Thereafter her blood pressure remained between 140 260 mmHg. Heart rates remained between 100 110 beats a minute She no symptoms She was laid supine at the end of the procedure Impression Normal twelve-lead EKG Hypertension No evidence for neurocardiogenic syncope
== END 2021-04-16 10:08 | disposition home or self-care (01) ==
LOC: CATHEP 07:15
PROVIDERS: ATTEND Internal Medicine Clinical Cardiac Electrophysiology
DX: R55 Syncope and collapse (principal); F31.9 Bipolar disorder, unspecified; Z72.0 Tobacco use; Z20.822 Contact with and (suspected) exposure to COVID-19; Z82.49 Family history of ischemic heart disease and other diseases of the circulatory system; Z79.899 Other long term (current) drug therapy; Z88.8 Allergy status to other drugs, medicaments and biological substances
CPT/HCPCS: 81025; 87635; 93660